=== PATIENT | female | born 1955 | race Caucasian/White ===

== ENCOUNTER 2016-05-05 16:30 | Inpatient (IN) | payer OTHER, MEDICARE ==
[~2016-05-05] VITALS: Ht 175.3 cm; Wt 77.1 kg
[~2016-05-05 16:30] MED LIST: ABILIFY5 M1 PO; ASPIRIN EC81 M1 PO; ATIVAN0.5 M1 PO; ATIVAN0.5 MG PO; ATIVAN1 M1 PO; CLOBETASOL PROP15 G1 TOP; CYMBALTA 60 MG60 MG PO; CYMBALTA60 M1 PO; CYMBALTA60 MG PO; ECOTRIN81 MG PO; FENTANYL1 EAC5 TOP; FOLIC ACID0.4 MG PO; FOLIC ACID1 M1 PO; LOVENOX120 MG/0.1 SC; MELATONIN3 M4 PO; MOBIC15 MG PO; MULTIVITAMIN1 TAB PO; NEURONTIN300 MG PO; NEURONTIN600 M1 PO; NOVAPLUS FE50 MCG/HR TOP; PROAIR HFA0.09 MG/Ac INH; PROTONIX 40MG T40 MG PO; PROTONIX40 M3 PO; REMERON 7.5MG7.5 MG PO; REMERON15 M2 PO; SPIRIVA18 MCG INH; SYMBICORT 80-10.2 GM INH; THIAMINE HCL50 MG PO; TIZANIDINE HCL4 M2 PO; TIZANIDINE4 MG PO; TRAZODONE50 MG PO; TYLENOL TAB 32325 MG PO
--- NOTE | 2016-05-05 17:42 | ED PSYCHIATRIC COMPLAINT ---
History of Present Illness General Chief Complaint: ETOH/Drug Related Complaint Stated Complaint: REQ ETOH DETOX, +SI Source: patient, old records Exam Limitations: intoxication Vital Signs & Intake/Output Vital Signs & Intake/Output Vital Signs Date Time Temp Pulse Resp B/P Pulse O2 O2 Flow FiO2 Ox Delivery Rate 05/06 0006 99.4 81 20 119/72 03/08 2255 97.3 83 17 113/65 03/08 2255 97.3 83 17 113/65 90 Room Air 03/08 2150 98.3 86 18 108/74 03/08 2145 98.3 86 18 108/74 91 Room Air 03/08 2048 97.7 90 18 121/76 97 Room Air /08 2035 97.7 90 18 121/76 03/08 1930 98.3 88 18 135/89 03/08 1930 98.3 88 18 135/89 97 Room Air 03/08 1641 97.0 96 20 107/74 94 Room Air Room Air ED Intake and Output / 0000 08 1200 Intake Total Output Total Balance Patient 148 lb Weight Allergies Coded Allergies: Sulfa (Sulfonamide Antibiotics) (Mild, HIVES 07/03/15) amitriptyline (HIVES 07/03/15) Reconcile Medications Budesonide/Formoterol Fumara (Symbicort 80-4.5 Mcg Inhaler) 80 MCG/4.5 MCG PUF 2 PUFF INH BID COPD (Reported) Clobetasol Propionate 15 GM OINT...G. 1 GARRETT TOP BID INFECTION (Reported) DULOXETINE HCL (Cymbalta) 60 MG ECC 1 CAP PO DAILY MENTAL HEALTH (Reported) Enoxaparin Sodium (Lovenox) 120 MG/0.8 ML SYRINGE 120 MG SC DAILY hx of DVT/PE (Reported) Fentanyl 100 MCG/HOUR PATCH.TD72 1 PAT TOP Q3D chr. pain (Reported) Gabapentin (Neurontin) 300 MG CAP 600 MG PO TID MENTAL HEALTH/NERVE PAIN ( Reported) Melatonin 3 MG CAP 1 CAP PO QPM SLEEP (Reported) Mirtazapine (Remeron) 15 MG TABLET 1 TAB PO QPM SLEEP (Reported) Multivitamin (Multiple Vitamins) 1 TAB TAB 1 TAB PO DAILY Supplement Pantoprazole Sodium (Protonix) 40 MG GRANPKT.DR 1 TAB PO BID ACID REFLUX ( Reported) THIAMINE HCL (Thiamine HCl) 50 MG TAB 1 TAB PO DAILY Supplement Tiotropium [place] (Spiriva) 18 MCG CAP 1 CAP INH DAILY COPD (Reported) Triage Note: PT TO ED FOR ETOH DETOX LAST DETOX AT [facility] A COUPLE MONTHS AGO, BEFORE THAT DETOX HERE 3-4 MONTHS AGO. "I HAVE TO DETOX MEDICAL, BECAUSE I HAVE SEIZURES". PT ADMITS TO +SI THOUGHTS "I JUST DON'T WANT TO BE HERE ANYMORE". LAST DRINK 2 PINTS OF VODKA THROUGHOUT TODAY. Triage Nurses Notes Reviewed? yes HPI: This is a 60-year-old female past medical history including hemachromatosis, bilat DVT, hep B, hep C, thyroid nodule, GERD, COPD, seizures, who is actively intoxicated so unable to corroborate much of her history, who comes in for chief complaint of requesting alcohol detox. She states that her last drink was 30 minutes prior to arriving at [facility]. Patient states that she usually drinks several pints of vodka a day. Shortly, she endorses that she's had several withdrawal seizures in the past. Additionally, patient states she has fentanyl patch for chronic pain. She states last time she wore the patch was yesterday morning. When asked about suicidal ideation, patient said "no, but maybe I'm thinking about it." Denies any homicidal ideation. Unable to obtain last withdrawal seizure. Unable to corroborate much of her past medical history. Unable to corroborate her medication list. (SERGIO HOYT,OLGA) Past History Travel History Traveled to [place] past 21 day No Medical History Any Pertinent Medical History? 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: BREAST NODULES (R BREAST 1 NODULE PRECANCEROUS) Other Medical Hx: bilateral DVT in past History of MRSA: No History of VRE: No History of CDIFF: No Pneumonia Vaccine: 06/28/10 Surgical History Surgical History: IVC filter left foot/toe surgery 10/2014 HYSTERECTOMY LUMPECTOMY TO BOTH BREAST Psychosocial History Who do you live with Patient/Self Services at Home None What is your primary language Armenian Tobacco Use: Current Daily Use Daily Tobacco Use Amount/Type: => 5 Cigarettes daily ETOH Use: alcoholic Illicit Drug Use: denies illicit drug use Family History Family History, If Any: Relation not specified for: *No pertinent family history Hx Contributory? No (OLGA HILL MD) Review of Systems Review of Systems Constitutional: Reports: no symptoms. (OLGA HILL MD) Physical Exam Physical Exam General Appearance: awake, intoxicated Head: atraumatic Ears, Nose, Throat: normal ENT inspection Neck: normal inspection Respiratory: wheezes present Cardiovascular: regular rate/rhythm, 3/6 systolic ejection murmur Gastrointestinal: soft, non-tender Neurological/Psychiatric: awake, agitated, intoxicated SAD PERSONS Done? unobtained due to conditi (SERGIO HOYT,OLGA) Progress Differential Diagnosis: drug intoxication, drug withdrawal Plan of Care: Orders Procedure Date/time Status Nothing by Mouth 05/06 B Active Saline Lock 05/07 35 Active Misc Message 05/07 35 Active ED Holding Orders 05/07 35 Active Admit to inpatient 05/07 35 Active Vital Signs 05/07 35 Active Code Status 05/07 35 Active Continuous Observation Monitor 05/05 1916 Complete CIWA 05/05 1720 Active URINE DRUGS OF ABUSE 05/05 1720 Complete MAGNESIUM 05/05 1720 Complete ETHANOL 05/05 1720 Complete COMPREHENSIVE METABOLIC PANEL 05/05 1720 Complete CBC WITHOUT DIFFERENTIAL 05/05 172 Complete Laboratory Tests 05/05/16 1930: Urine Opiates Screen < 100.00, Methadone Screen 89, Barbiturate Screen < 60, Ur Phencyclidine Scrn < 6.00, Amphetamines Screen < 100, U Benzodiazepines Scrn 171 , Urine Cocaine Screen < 50, Urine Cannabis Screen 78.70 H 05/05/16 1841: Anion Gap 12, Estimated GFR > 60, BUN/Creatinine Ratio 14.3, Glucose 105 H, Calcium 9.0, Magnesium 1.5 L, Total Bilirubin 0.3, AST 16, ALT 23, Alkaline Phosphatase 119, Total Protein 6.0 L, Albumin 3.4 L, Globulin 2.6, Albumin/ Globulin Ratio 1.3, CBC w Diff NO MAN DIFF REQ, RBC 4.31, MCV 87.2, MCH 28.5, RDW 18.0 H, MPV 6.9 L, Gran % 53.4, Lymphocytes % 35.7, Monocytes % 7.7, Eosinophils % 2.6, Basophils % 0.6, Absolute Granulocytes 3.5, Absolute Lymphocytes 2.3, Absolute Monocytes 0.5, Absolute Eosinophils 0.2, Absolute Basophils 0, PUBS MCHC 32.7 L, Serum Alcohol 131.0 At this time, patient is actively intoxicated. We will draw baseline labs and start her on a CIWA protocol (OLGA HILL MD) Hand-Off Endorsed To: CHRISTINA MARTIN MD Endorsed Time: 2311 Pending: other (FOLLOW CIWA SCORES) (SANTA ESCAMILLA MD) Departure Departure Condition: Stable Referrals: TETO COPPOLA MD (PCP/Family) Departure Forms: Customer Survey General Discharge Information (OLGA HILL MD) Departure Time of Disposition: 2311 Disposition: STILL A PATIENT Resident Co-Sign Statement Statement: ED Attending supervision documentation- [X] I saw and evaluated the patient. I have also reviewed all the pertinent lab results and diagnostic results. I agree with the findings and the plan of care as documented in the Resident's documentation. [X] I have reviewed the ED Record and agree with the Resident's documentation. [] Additions or exceptions (if any) to the Resident's note and plan are summarized below: [] (SANTA ESCAMILLA MD) Departure Clinical Impression Primary Impression: Alcohol intoxication Secondary Impressions: Alcohol withdrawal syndrome Admission Note Spoke With: JESSICA AMIN MD Documentation of Exam: Documentation of any treatments & extenuating circumstances including Concerns Regarding Discharge (functional status, medication knowledge or non-compliance, living conditions, etc.) that warrant an admission rather than observation: Pt with elevated ciwa scores, history of seizure disorder 3 months ago, meets criteria for inpatient etoh detox. (CHRISTINA MARTIN MD) ED Attending Observation Initial Observation Note: I have seen and personally examined JOE WOODS on 05/05/16 at 2312. I agree with the current emergency department documentation. The disposition (admission or discharge) is uncertain at this time, she needs a period of observation for the following reason(s): The ED Nurse caring for this patient has been personally informed as to what the patient is being observed for. (ANDI HOYT,SANTA)
[2016-05-05 18:52] LABS: ABSOLUTE BASOPHIL COUNT 0 /CUMM (0.0-0.2); ABSOLUTE EOSINOPHIL COUNT 0.2 /CUMM (0.0-0.7); ABSOLUTE GRANULOCYTE CT 3.5 /CUMM (1.4-6.5); ABSOLUTE LYMPH COUNT 2.3 /CUMM (1.2-3.4); ABSOLUTE MONOCYTE COUNT 0.5 /CUMM (0.10-0.60); BASOPHIL % 0.6 % (0.0-2.0); EOSINOPHIL % 2.6 % (0-5); GRANULOCYTE % 53.4 % (42.2-75.2); HEMATOCRIT 37.6 % (37-47); MEAN CORPUSCULAR HGB 28.5 PG (27.0-31.0); MEAN CORPUSCULAR HGB CONC 32.7 G/DL (33.0-37.0); MEAN CORPUSCULAR VOLUME 87.2 FL (81.0-99.0); MEAN PLATELET VOLUME 6.9 FL (7.4-10.4); PLATELET COUNT 200 /CUMM (130-400); RED BLOOD CELL CT 4.31 /CUMM (4.20-5.40); WHITE BLOOD CELL COUNT 6.5 /CUMM (4.8-10.8)
[2016-05-05 19:30] VITALS: BP 135/89
[2016-05-05 20:35] VITALS: BP 121/76
[2016-05-05 21:50] VITALS: BP 108/74
[2016-05-05 22:55] VITALS: BP 113/65
[2016-05-06] VITALS (11 sets, daily range): BP systolic 97–120; BP diastolic 58–72
--- NOTE | 2016-05-06 01:28 | History & Physical ---
DELILAH HOYT,[facility] 05/06/16 0127: General Information and HPI MD Statement: I have seen and personally examined JOE WOODS and documented this H&P. The patient is a 60 year old F who presented with a patient stated chief complaint of needing alcohol detox. Source of Information: patient Exam Limitations: no limitations History of Present Illness: This is a 59-year-old lady with a past medical history of alcohol abuse with multiple admissions for detox, alcohol withdrawal seizures, COPD, hep B and hep C, depression, hemoglobin, ptosis, fibromyalgia, history of bilateral DVT and PE status post IVC placement, presents to [facility] ED requesting alcohol detox. Of note, patient was admitted at [facility] December 2015 for alcohol detox but left AMA. Patient states that she was sober for a month for she resumed drinking. However, she is reported to have been hospitalized at [facility] in January for alcohol detox including a seizure withdrawal episode. She reports drinking about a quart of vodka daily with last drink being at 1 PM on the day of this admission (05/05). Patient is reporting complaints of nausea but no vomiting, and diffuse diaphoresis. She also complains of a headache and states that it is probably from stopping her fentanyl (last patch removed yesterday). She denies any suicidal or homicidal ideation. When asked what her plans were for this detox, patient states that she needs help and she will not leave AMA this time. Review of system is negative for vision changes, dizziness, shortness of breath, chest pain, palpitation, abdominal pain, fever, chills or dysuria. Allergies/Medications Allergies: Coded Allergies: Sulfa (Sulfonamide Antibiotics) (Mild, HIVES 07/03/15) amitriptyline (HIVES 07/03/15) Home Med list Budesonide/Formoterol Fumara (Symbicort 80-4.5 Mcg Inhaler) 80 MCG/4.5 MCG PUF 2 PUFF INH BID COPD (Reported) Clobetasol Propionate 15 GM OINT...G. 1 GARRETT TOP BID INFECTION (Reported) DULOXETINE HCL (Cymbalta) 60 MG ECC 1 CAP PO DAILY MENTAL HEALTH (Reported) Enoxaparin Sodium (Lovenox) 120 MG/0.8 ML SYRINGE 120 MG SC DAILY hx of DVT/PE (Reported) Fentanyl 100 MCG/HOUR PATCH.TD72 1 PAT TOP Q3D chr. pain (Reported) Gabapentin (Neurontin) 300 MG CAP 600 MG PO TID MENTAL HEALTH/NERVE PAIN ( Reported) Melatonin 3 MG CAP 1 CAP PO QPM SLEEP (Reported) Mirtazapine (Remeron) 15 MG TABLET 1 TAB PO QPM SLEEP (Reported) Multivitamin (Multiple Vitamins) 1 TAB TAB 1 TAB PO DAILY Supplement Pantoprazole Sodium (Protonix) 40 MG GRANPKT.DR 1 TAB PO BID ACID REFLUX ( Reported) THIAMINE HCL (Thiamine HCl) 50 MG TAB 1 TAB PO DAILY Supplement Tiotropium [place] (Spiriva) 18 MCG CAP 1 CAP INH DAILY COPD (Reported) Past History Travel History Traveled to [place] past 21 day No Medical History Neurological: FIBROMYALGIA seizure in the setting of alcohol withdrawal EENT: NONE Cardiovascular: NONE Respiratory: COPD, emphysema Gastrointestinal: GERD, POLYPS IN COLON Hepatic: hepatitis B, hepatitis C Renal: 2 CYSTS IN L KIDNEY Musculoskeletal: osteoarthritis, psoariatic arthritis, OSTEOPENIA Psychiatric: alcohol dependence, anxiety, depression, dysthymic disorder Endocrine: THYROID NODULE Blood Disorders: HEMOCHROMATOSIS Cancer(s): NONE 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 self Services at Home: None Primary Language: Uzbek ETOH Use: alcoholic Illicit Drug Use: denies illicit drug use Functional Ability ADLs Independent: dressing, eating, toileting, bathing. Ambulation: cane Review of Systems Review of Systems Constitutional: Reports: see HPI. EENTM: Denies: double vision, visual changes, eye pain. Cardiovascular: Denies: orthopena, palpitations, peripheral edema. Respiratory: Denies: cough, hemoptysis, short of breath. GI: Reports: nausea. Denies: abdominal pain, bloating, constipation, diarrhea, melena, bloody stool. Genitourinary: Denies: hematuria, nocturia, pain. Musculoskeletal: Denies: joint pain, muscle pain, muscle stiffness. Skin: Denies: dryness, jaundice. Neurological/Psychological: Denies: confusion, depressed. Hematologic/Endocrine: Reports: no symptoms. Immunologic/Allergic: Reports: no symptoms. Exam & Diagnostic Data Last 24 Hrs of Vital Signs/I&O Vital Signs Date Time Temp Pulse Resp B/P Pulse O2 O2 Flow FiO2 Ox Delivery Rate 05/06 0214 97.9 77 18 97/58 93 Room Air 05/06 0212 97.9 77 18 97/58 05/06 0006 99.4 81 20 119/72 05/05 2255 97.3 83 17 113/65 /08 2255 97.3 83 17 113/65 90 Room Air 05/05 2150 98.3 86 18 108/74 /08 2145 98.3 86 18 108/74 91 Room Air 05/05 2048 97.7 90 18 121/76 97 Room Air 05/05 2035 97.7 90 18 121/76 / 1930 98.3 88 18 135/89 /08 1930 98.3 88 18 135/89 97 Room Air 05/05 1641 97.0 96 20 107/74 94 Room Air Room Air Intake & Output 05/06 0800 05/06 0000 05/05 1600 Intake Total Output Total Balance Patient 77.111 kg 67.132 kg Weight Physical Exam General Appearance Alert, Oriented X3, Cooperative Skin No Significant Lesion HEENT Atraumatic, Mucous Membr. moist/pink Neck Supple, No JVD Lymphatic Cervical nl Cardiovascular Regular Rate, Normal S1, Normal S2 Lungs Clear to Auscultation, Normal Air Movement Abdomen Normal Bowel Sounds, Soft, No Tenderness Neurological Normal Speech, Normal Tone, Sensation Intact Extremities No Clubbing, No Cyanosis, No Edema, Normal Pulses Vascular Normal Pulses Assessment/Plan Assessment: This is a 60-year-old lady with a past medical history of alcohol abuse including admissions for detox and withdrawal seizures is presenting for alcohol detox. Patient reports drinking a quart of vodka daily. At presentation at the ED, she was found to be very intoxicated and was not initially giving any coherent history, last reported drink was at 1 PM on 05/06. Patient's vitals at the ED was unremarkable. Hypomagnesemia is noted on her labs, otherwise unremarkable. Patient will be admitted to general medicine for management of alcohol detox. Assessment and plan #Alcohol detox Last reported drink 1 PM (05/05) with you tox showing a level of 131. Close monitoring for withdrawal effects needed as patient has a history of withdrawal seizures. Plan * Admit to general medicine * Lorazepam 2 mg every 6 hours * CIWA protocol with lorazepam when necessary dosing * Banana bag (1 L) * Thiamine, folate, multivitamin * Will obtain psych and social consult #History of opiate dependence Patient endorses a history of fentanyl use 100 g. Last patch was removed yesterday. She is endorsing complaints of headaches and is worried about withdrawal effects. Plan * Oxycodone is on on board as needed for now * Will obtain psych consult tomorrow for reccomendation for tapering/methadone os suboxone initiation #Hypomagnesemia Most likely secondary to poor nutrition from daily alcohol abuse. Plan * Banana bag will provide adequate magnesium replacement for now * Will trend mag and replenish as necessary #History of bilateral DVT and PE Patient does have a IVC filter placed and is supposed to be on lifetime anticoagulation. Plan * Lovenox 1.5 mg/kg every 24 hours (~120 mg) * Mechanical Alps #History of depression * Continue duloxetine #History of GERD * Continue omeprazole Number sign history of COPD * Continue Spiriva and Symbicort * TRC nebs #History of muscle spasm * Conitinue Tinazidine As Ranked By This Provider Problem List: 1. ALCOHOL WITHDRAWAL 2. Hypomagnesemia Core Measures/Miscellaneous Acute Coronary Syndrome ACS Diagnosis: No Cerebrovascular Accident CVA/TIA Diagnosis: No Congestive Heart Failure CHF Diagnosis: No Venous Thromboembolism VTE Risk Factors: Age > 40 No [facility] VTE prophylaxis d/t: No contraindications No VTE Pharm Prophylaxis d/t: No contraindications VTE Diagnosis: No VTE Type: NONE VTE Confirmed by (Test): NONE Severe Sepsis Severe Sepsis Present: No Septic Shock Septic Shock Present: No Miscellaneous Documentation Attending Case Discussed With: JESSICA AMIN MD Primary Care Physician: TETO COPPOLA MD Patient sees these Specialists none Level of Patient Care: General Medicine JAMISON GIANG 05/06/16 0135: Resident Review Statement Resident Statement: examined this patient, discussed with internal sales, agreed with internal sales, discussed with family Other Findings: 59-year-old female with past medical history of alcohol dependence with multiple inpatient admissions and alcohol-related seizure history, History of bilateral DVT and PE status post IVC filter, history of hepatitis B and C, depression, COPD, hemachromatosis, fibromyalgia,History of bilateral DVT and PE status post IVC filterpresented to the ED for the evaluation of alcohol intoxication requesting detox. Last drink was 30 minutes prior to arrival. She reported drinking several pints of vodka a day.She was recently admitted to [facility] due to alcohol intoxication and left AGAINST MEDICAL ADVICE at that time. She was admitted to [facility] for the similar complaints and had a witnessed seizure at that time.patient was recently seen by her toy consultant Ken Lora and has been off fentanyl and oxycodone now. In the ED patient reported nausea and vomiting without any abdominal discomfort.Reported headacheswithout any dizziness or lightheadedness. Vitals on admission temperature 97.3, pulse 83, respiratory rate 17, blood pressure 113/65 on room air. General Appearance: Alert and oriented 3 , not in acute distress Skin: Grossly normal HEENT: PEERLA Neck: Supple, No JVD Cardiovascular: Regular Rate, Normal S1, Normal S2, No Murmurs Lungs: Chest clear to auscultation bilaterally on exam Abdomen: Normal Bowel Sounds, without any tenderness Neurological: No exam intact Extremities: No evidence of any lower extremity swelling/injuries. Bilateral tremors and tremors on exam. Vascular: Normal Pulses. Pertinent labs on admission: Normal CBC, hypomagnesemia : 1.5, urine toxicology is positive for cannabis Assessment and plan: 1 Alcohol intoxication/withdrawal-requesting for detox: * Admit the patient GenMed floor * Start the patient on scheduled. Ativan 2 mg every 6 hours * Ativan as per [facility] protocol * Seizure and fall precautions. * Repeat and replete electrolytes * Will give one banana bag continue thiamine folate and multivitamins in the morning * Social consult and psych consult in the morning. 2. Hypomagnesemia: * Give 1 g of IV Mg sulfate repeat levels in the morning. 3.History of bilateral DVT and PE status post IVC filter * In December patient was on 120 subcutaneous Lovenox, she has lost weight since December, corrected subcutaneous Lovenox dose : 100 subcutaneous daily(dose confirmed with the pharmacy) 4. History of spasticity * Continue tizanidine 4 mg 3 times a day. 5. History of depression: * Continue home dose Cymbalta 6. History of GERD/ Gastritis * Continue omeprazole. 7. History of COPD: * Continue Symbicort and Spiriva, * TRC nebs as needed. 8 Chronic opiod dependence(off oxycodon and fentaly patch , due to heavy alcohol abuse )-last filled prescription for oxycodone on 04/22/16 for 7 days and 7-day supply of Fentanyl was prescribed by her developer programmer analyst on 03/02/16 * Continue oxycodon as needed for sever pain to prevent withdrawls . * obtain [facility] consult regarding opiod detox Moderate to severe pain controlled with oxycodon and ibuprofen. DVT prophylaxis with Lovenox Patient is full code ELOISA HOYT, [facility] 05/06/16 0200: Attending MD Review Statement Attending Statement Attending MD Statement: examined this patient, discuss w/resident/PA/ASSET MANAGER, agreed w/resident/PA/ASSET MANAGER Attending Assessment/Plan: 60 yo F smoker, with h/o alcohol dependence with multiple failed attempts at detox, withdrawal seizures, Hep B and C, hemochromatosis, depression, HTN, COPD, psoriatic arthritis, chronic opiate dependence, fibromyalgia, b/l DVT s/p IVC on Lovenox, is here requesting alcohol detox. C/o nausea and diaphoresis. Denies SI or HI. Last admitted to [facility] (Dec 2015) for detox but left AMA. She reports being admitted to [facility] for detox in Jan 2016 and thinks she might have had a seizure then. Drinks 1 quart of vodka daily. Her developer programmer analyst Stephany Palomino took her off the fentanyl and oxycodone as she was consuming alcohol at the same time. Vitals stable except for borderline hypotension. Exam: tremulous, flat affect, dry mucous membranes, otherwise benign. Labs: Mag 1.5, Utox positive for cocaine. S. Alcohol 131. 1. Alcohol detox. GM admit, CIWA, ativan 2 mg Q6, IV ativan PRN, banana bag, seizure/fall precautions, Social work and Psych consult. Replete magnesium. 2. Alcoholic gastritis. Continue PPI. 3. H/o DVT s/p IVC filter. Continue lovenox dose reduced based on her body weight. 4. Fibromyalgia, chronic opiate dependence. Patient was last prescribed oxycodone on 04/02/16 for 7 days and more recently her developer programmer analyst gave her only a 7-day supply of Fentanyl on 03/02/16, as patient was drinking too much alcohol while on opiates. Patient is now concerned that she may go into opiate withdrawal. We will keep her on oxycodone PRN, and have Psych help with opiate detox. 5. Smoking cessation counseling. Nicotine patch. DVT ppx Lovenox. Full code.
--- NOTE | 2016-05-06 02:41 | Admission Certification ---
Admission Certification Certification Statement - As attending physician, I certify that at the time of - admission, based on clinical presentation, severity of - symptoms, need for further diagnostic testing and - therapeutic interventions, and risk of adverse outcomes - without in-hospital treatment, in my clinical assessment, - this patient requires an acute hospital stay for a minimum - of two nights or longer. I have also considered psychsocial - factors such as support system, advanced age, financial - issues, cognitive issues, and failed out-patient treatments, - past re-admission history, safety of patient, and lack of - compliance as applicable. Specific rationale supporting this admission is: Alcohol detox.
[2016-05-06 05:50] LABS: ABSOLUTE BASOPHIL COUNT 0 /CUMM (0.0-0.2); ABSOLUTE EOSINOPHIL COUNT 0.2 /CUMM (0.0-0.7); ABSOLUTE GRANULOCYTE CT 3.7 /CUMM (1.4-6.5); ABSOLUTE LYMPH COUNT 1.8 /CUMM (1.2-3.4); ABSOLUTE MONOCYTE COUNT 0.5 /CUMM (0.10-0.60); BASOPHIL % 0.3 % (0.0-2.0); EOSINOPHIL % 2.4 % (0-5); HEMATOCRIT 36.4 % (37-47); MEAN CORPUSCULAR HGB 28.8 PG (27.0-31.0); MEAN CORPUSCULAR HGB CONC 33.2 G/DL (33.0-37.0); MEAN CORPUSCULAR VOLUME 86.8 FL (81.0-99.0); MEAN PLATELET VOLUME 7.1 FL (7.4-10.4); PLATELET COUNT 172 /CUMM (130-400); RBC DISTRIBUTION WIDTH 17.7 % (11.5-14.5); RED BLOOD CELL CT 4.19 /CUMM (4.20-5.40); WHITE BLOOD CELL COUNT 6.2 /CUMM (4.8-10.8)
--- NOTE | 2016-05-06 06:46 | PN- Housestaff ---
DONITA HOYT,SEAN 05/06/16 0646: Subjective Follow-up For: Alcohol and opiate detoxification Subjective: I saw and examined the patient today morning She is lying in the bed, sitter at bedside as she is suicidal. Alert and oriented X 3. minimally communicative. Review of Systems Constitutional: Reports: see HPI. Comments: ROS negative except the above Objective Last 24 Hrs of Vital Signs/I&O Vital Signs Date Time Temp Pulse Resp B/P Pulse O2 O2 Flow FiO2 Ox Delivery Rate 05/06 0600 86 20 108/72 05/06 0553 97.9 67 20 102/62 94 Nasal 2.0L Cannula 05/06 0415 104/64 05/06 0400 97.9 77 18 102/62 05/06 0347 97.3 72 18 91/53 92 Nasal 2.0L Cannula 05/06 0346 95 Nasal 2.0L Cannula 05/06 0214 97.9 77 18 97/58 93 Room Air 05/06 0212 97.9 77 18 97/58 05/06 0006 99.4 81 20 119/72 /08 2255 97.3 83 17 113/65 03/08 2255 97.3 83 17 113/65 90 Room Air 03/08 2150 98.3 86 18 108/74 03/08 2145 98.3 86 18 108/74 91 Room Air /08 2048 97.7 90 18 121/76 97 Room Air 03/08 2035 97.7 90 18 121/76 03/08 1930 98.3 88 18 135/89 03/08 1930 98.3 88 18 135/89 97 Room Air / 1641 97.0 96 20 107/74 94 Room Air Room Air Intake & Output 05/06 0800 05/06 0000 08 1600 Intake Total 220 Output Total 300 Balance -80 Intake, IV 100 Intake, Oral 120 Output, Urine 300 Patient 77.111 kg 67.132 kg Weight Physical Exam General Appearance: Alert, Oriented X3, Cooperative, No Acute Distress Skin: No Rashes, No Breakdown HEENT: Atraumatic, PERRLA Neck: Supple, No JVD Cardiovascular: Normal S1, Normal S2, No Murmurs Lungs: Normal Air Movement Abdomen: Normal Bowel Sounds, Soft, No Tenderness Neurological: Normal Tone Extremities: No Clubbing, No Cyanosis Current Medications: Current Medications Sig/Sharon Start time Last Medication Dose Route Stop Time Status Admin Acetaminophen 1,000 MG Q6P PRN 05/06 0145 AC N/A 1 UNIT IV Acetaminophen 650 MG Q6 PRN 05/06 0100 AC PO Acetaminophen 1,000 MG Q6P PRN 05/06 0100 DC IV Cyanocobalamin/ 1 BAG DAILY 05/06 1000 AC Thiamine/Pyridoxine IV Dextrose/Water 1,000 ML Duloxetine HCl 60 MG DAILY 05/06 1000 AC PO Enoxaparin Sodium 40 MG DAILY 05/06 1000 CAN SC Enoxaparin Sodium 100 MG DAILY 05/06 1000 AC SC Folic Acid 1 MG DAILY 05/06 1000 AC PO Ibuprofen 600 MG Q6P PRN 05/06 0100 DC PO Ketorolac 30 MG Q6P PRN 05/06 0130 DC Tromethamine IV Lorazepam 2 MG Q6 05/06 0600 AC 05/06 PO 0534 Lorazepam 0 .STK-MED ONE 05/07 535 DC PO Lorazepam 0 .STK-MED ONE 05/06 0233 DC .ROUTE Lorazepam 1 MG Q1P PRN 05/06 0130 AC 05/06 IV 0234 Lorazepam 2 MG ONCE ONE 05/06 0015 DC 05/06 PO 05/06 0016 0019 Lorazepam 0 .STK-MED ONE 05/06 0014 DC PO Magnesium Oxide 0 .STK-MED ONE 05/06 2003 DC PO Magnesium Oxide 400 MG ONE ONE 05/05 193 DC 05/05 PO 05/05 Magnesium Sulfate 0 .STK-MED ONE 05/06 0150 DC .ROUTE Magnesium Sulfate 1 GM ONCE ONE 05/06 0130 DC 05/06 Dextrose/Water 100 ML IV 05/06 528 0207 Melatonin 3 MG AT BEDTIME 05/06 2199 AC PO Mirtazapine 15 MG QPM 05/06 2200 AC PO Multivitamins 1 TAB DAILY 05/06 1000 AC PO Omeprazole 40 MG DAILY AC 05/06 0700 AC 05/06 PO 0534 Omeprazole 0 .STK-MED ONE 05/06 0536 DC PO Oxycodone HCl 0 .STK-MED ONE 05/06 0552 DC PO Oxycodone HCl 10 MG Q6P PRN 05/06 0315 AC 05/06 PO 0548 Thiamine HCl 100 MG DAILY 05/06 1000 AC PO Tiotropium [place] 1 PUF DAILY 05/06 1000 AC INH Tizanidine HCl 4 MG TID 05/06 1000 AC PO Last 24 Hrs of Lab/Wm Results Last 24 Hrs of Labs/Mics: Laboratory Tests 05/06/16 0530: Anion Gap 3 L, Estimated GFR > 60, BUN/Creatinine Ratio 20.0, CBC w Diff NO MAN DIFF REQ, RBC 4.19 L, MCV 86.8, MCH 28.8, RDW 17.7 H, MPV 7.1 L, Gran % 60.0, Lymphocytes % 29.1, Monocytes % 8.2, Eosinophils % 2.4, Basophils % 0.3, Absolute Granulocytes 3.7, Absolute Lymphocytes 1.8, Absolute Monocytes 0.5, Absolute Eosinophils 0.2, Absolute Basophils 0, PUBS MCHC 33.2 05/05/16 1930: Urine Opiates Screen < 100.00, Methadone Screen 89, Barbiturate Screen < 60, Ur Phencyclidine Scrn < 6.00, Amphetamines Screen < 100, U Benzodiazepines Scrn 171 , Urine Cocaine Screen < 50, Urine Cannabis Screen 78.70 H 05/05/16 1841: Anion Gap 12, Estimated GFR > 60, BUN/Creatinine Ratio 14.3, Glucose 105 H, Calcium 9.0, Magnesium 1.5 L, Total Bilirubin 0.3, AST 16, ALT 23, Alkaline Phosphatase 119, Total Protein 6.0 L, Albumin 3.4 L, Globulin 2.6, Albumin/ Globulin Ratio 1.3, CBC w Diff NO MAN DIFF REQ, RBC 4.31, MCV 87.2, MCH 28.5, RDW 18.0 H, MPV 6.9 L, Gran % 53.4, Lymphocytes % 35.7, Monocytes % 7.7, Eosinophils % 2.6, Basophils % 0.6, Absolute Granulocytes 3.5, Absolute Lymphocytes 2.3, Absolute Monocytes 0.5, Absolute Eosinophils 0.2, Absolute Basophils 0, PUBS MCHC 32.7 L, Serum Alcohol 131.0 Assessment/Plan Assessment: Patient is a 59-year-old female with past medical history significant for multiple admissions for alcohol detoxification, COPD, hepatitis B and C, depression, fibromyalgia (on opiate therapy), 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 She recently hospitalized in [place] for alcohol withdrawal related seizure episode. She drinks vodka, along with opiate intake about which her trauma registrar Stephany Palomino is concerned and stopped her opiates, fentanyl patch. Admitted to general medicine floor Plan Alcohol detoxification * [facility] protocol with bananna bag, folic acid and thiamine * Suicidal ideation present - so 1:[address] * Psych consulted - Suggested to continue sitter, if doesnt improve will consider inpatient psychiatry Alcohol related gastritis * Omeprazole 40mg PO daily History of DVT & PE (s/p IVC filter placement) * On lovenox 1.5mg/kg/day dosing (100mg) * we will continue according to her current weight. Fibromyalgia * Chronically on opiates, last prescribed on 04/02/16 * Started on oxycodone 10mg Q6hr PRN for pain * Tizanidine 4mg TID for spasms Depression * Continue mirtazepine 15mg dialy and discontinue cymbalta in the setting of hyponatremia COPD * TRC/Nebs * desaturated in the ER, currently on 2L of oxygen * CXR shows left sided blunting. DVT Prophylaxis * SC lovenox Code status * Full code Problem List: 1. ALCOHOL WITHDRAWAL 2. Alcohol abuse 3. COPD 4. History of chronic obstructive pulmonary disease 5. Hypomagnesemia 6. Chronic pain 7. Suicidal ideations Pain Ratin Pain Location: n/a Pain Goal: Pain 4 or less Pain Plan: oxycodone 5mg Q6 Tomorrow's Labs & Rationales: BEP to monitor electrolytes in alcohol withdrawl patient SVETLANA DEAN MD 05/06/16 1450: Attending MD Review Statement Attending Statement Attending MD Statement: examined this patient, discuss w/resident/PA/ADMINISTRATIVE OFFICE CLERK, agreed w/resident/PA/ADMINISTRATIVE OFFICE CLERK, reviewed EMR data (avail), discussed with nursing, discussed with case mgmt, reviewed images, amended to note Attending Assessment/Plan: Patient seen and examined, she was somewhat drowsy but arousable. She denies any complaints. Patient is admitted for alcohol detox and also admits to using marijuana. Vital Signs Date Time Temp Pulse Resp B/P Pulse O2 O2 Flow FiO2 Ox Delivery Rate 05/06 808 97.9 67 20 102/62 94 Nasal 2.0L Cannula 05/07 799 Nasal 2.0L Cannula 05/06 0600 86 20 108/72 05/06 0553 97.9 67 20 102/62 94 Nasal 2.0L Cannula 05/06 0415 104/64 / 0400 97.9 77 18 102/62 / 0347 97.3 72 18 91/53 92 Nasal 2.0L Cannula 05/06 0346 95 Nasal 2.0L Cannula 05/06 0214 97.9 77 18 97/58 93 Room Air 05/06 0212 97.9 77 18 97/58 / 0006 99.4 81 20 119/72 03/08 2255 97.3 83 17 113/65 03/08 2255 97.3 83 17 113/65 90 Room Air 03/08 2150 98.3 86 18 108/74 03/08 2145 98.3 86 18 108/74 91 Room Air /08 2048 97.7 90 18 121/76 97 Room Air 03/08 2035 97.7 90 18 121/76 03/08 1930 98.3 88 18 135/89 03/08 1930 98.3 88 18 135/89 97 Room Air /08 1641 97.0 96 20 107/74 94 Room Air Room Air on exam; aox3, nad. cv; s1,s2, rrr resp; clear abd; soft, nt, bs+ ext; no edema. Laboratory Tests 05/06 05/05 0530 1930 Chemistry Sodium (137 - 145 mmol/L) 136 L Potassium (3.5 - 5.1 mmol/L) 4.4 Chloride (98 - 107 mmol/L) 102 Carbon Dioxide (22 - 30 mmol/L) 31 H Anion Gap (5 - 16) 3 L BUN (7 - 17 mg/dL) 12 Creatinine (0.5 - 1.0 mg/dL) 0.6 Estimated GFR (>60 ml/min) > 60 BUN/Creatinine Ratio (7 - 25 %) 20.0 Hematology CBC w Diff NO MAN DIFF REQ WBC (4.8 - 10.8 /CUMM) 6.2 RBC (4.20 - 5.40 /CUMM) 4.19 L Hgb (12.0 - 16.0 G/DL) 12.1 Hct (37 - 47 %) 36.4 L MCV (81.0 - 99.0 FL) 86.8 MCH (27.0 - 31.0 PG) 28.8 RDW (11.5 - 14.5 %) 17.7 H Plt Count (130 - 400 /CUMM) 172 MPV (7.4 - 10.4 FL) 7.1 L Gran % (42.2 - 75.2 %) 60.0 Lymphocytes % (20.5 - 51.1 %) 29.1 Monocytes % (1.7 - 9.3 %) 8.2 Eosinophils % (0 - 5 %) 2.4 Basophils % (0.0 - 2.0 %) 0.3 Absolute Granulocytes (1.4 - 6.5 /CUMM) 3.7 Absolute Lymphocytes (1.2 - 3.4 /CUMM) 1.8 Absolute Monocytes (0.10 - 0.60 /CUMM) 0.5 Absolute Eosinophils (0.0 - 0.7 /CUMM) 0.2 Absolute Basophils (0.0 - 0.2 /CUMM) 0 PUBS MCHC (33.0 - 37.0 G/DL) 33.2 Toxicology Urine Opiates Screen (>2000 NG/ML) < 100.00 Methadone Screen (>300 NG/ML) 89 Barbiturate Screen (>200 NG/ML) < 60 Ur Phencyclidine Scrn (>25 NG/ML) < 6.00 Amphetamines Screen (>1000 NG/ML) < 100 U Benzodiazepines Scrn (>200 NG/ML) 171 Urine Cocaine Screen (>300 NG/ML) < 50 Urine Cannabis Screen (>50 NG/ML) 78.70 H 03/08 1841 Chemistry Sodium (137 - 145 mmol/L) 143 Potassium (3.5 - 5.1 mmol/L) 3.6 Chloride (98 - 107 mmol/L) 101 Carbon Dioxide (22 - 30 mmol/L) 29 Anion Gap (5 - 16) 12 BUN (7 - 17 mg/dL) 10 Creatinine (0.5 - 1.0 mg/dL) 0.7 Estimated GFR (>60 ml/min) > 60 BUN/Creatinine Ratio (7 - 25 %) 14.3 Glucose (65 - 99 mg/dL) 105 H Calcium (8.4 - 10.2 mg/dL) 9.0 Magnesium (1.6 - 2.3 mg/dL) 1.5 L Total Bilirubin (0.2 - 1.3 mg/dL) 0.3 AST (14 - 36 U/L) 16 ALT (9 - 52 U/L) 23 Alkaline Phosphatase (<127 U/L) 119 Total Protein (6.3 - 8.2 g/dL) 6.0 L Albumin (3.5 - 5.0 g/dL) 3.4 L Globulin (1.9 - 4.2 gm/dL) 2.6 Albumin/Globulin Ratio (1.1 - 2.2 %) 1.3 Hematology CBC w Diff NO MAN DIFF REQ WBC (4.8 - 10.8 /CUMM) 6.5 RBC (4.20 - 5.40 /CUMM) 4.31 Hgb (12.0 - 16.0 G/DL) 12.3 Hct (37 - 47 %) 37.6 MCV (81.0 - 99.0 FL) 87.2 MCH (27.0 - 31.0 PG) 28.5 RDW (11.5 - 14.5 %) 18.0 H Plt Count (130 - 400 /CUMM) 200 MPV (7.4 - 10.4 FL) 6.9 L Gran % (42.2 - 75.2 %) 53.4 Lymphocytes % (20.5 - 51.1 %) 35.7 Monocytes % (1.7 - 9.3 %) 7.7 Eosinophils % (0 - 5 %) 2.6 Basophils % (0.0 - 2.0 %) 0.6 Absolute Granulocytes (1.4 - 6.5 /CUMM) 3.5 Absolute Lymphocytes (1.2 - 3.4 /CUMM) 2.3 Absolute Monocytes (0.10 - 0.60 /CUMM) 0.5 Absolute Eosinophils (0.0 - 0.7 /CUMM) 0.2 Absolute Basophils (0.0 - 0.2 /CUMM) 0 PUBS MCHC (33.0 - 37.0 G/DL) 32.7 L Toxicology Serum Alcohol (<10 MG/DL) 131.0 A/P; 60 y/o F with pmh sig for alcohol abuse with multiple admissions for detox, alcohol withdrawal seizures, COPD, hep B and hep C, depression, hemoglobin, ptosis, fibromyalgia, history of bilateral DVT and PE status post IVC placement admitted with acute alcohol intoxication needing detox. Continue scheduled and when necessary Ativan as well as CIWA protocol. Continue multivitamin, folate and thiamine. Please DC IV Tylenol. Social work and psych should see the patient as patient had expressed suicidal ideation reportedly. DVt px; lovenox.
--- NOTE | 2016-05-06 07:25 | RADIOLOGY REPORT ---
EXAMINATION: XR PORTABLE CHEST CLINICAL INFORMATION: Pneumonia. Increased oxygen demand COMPARISON: 02/02/2015 and 05/30/2010 TECHNIQUE: Portable AP view of the chest was obtained. FINDINGS: Normal pulmonary vascularity.. There is subtle blunting of the left costophrenic angle and linear left base atelectasis, new from prior study. No dense focal consolidation or mass. No right pleural effusion. No pneumothorax. Normal heart size. Tortuous aorta. IMPRESSION: Blunting of the left costophrenic angle and left base atelectasis. A tiny left pleural effusion may be present.
--- NOTE | 2016-05-06 18:23 | Cons- Psychiatry ---
Psychiatric Consult Date of Consult: 05/06/16 Reason for Consult: "SI, ETOH withdrawl" History of Present Illness: Identifying Info: 55-year-old female who resides in [place]. CC: "I'm sick" HPI: Patient presents to [facility] emergency department on 05/05/2016 written request for alcohol detox and suicidal ideation. She was admitted due to history of seizures. She reports that she has recently been drinking 2 pints of vodka a day and was most recently detoxed at [facility] a few months ago. It is unclear when she most recently relapsed on alcohol. The patient has multiple previous hospitalizations for alcohol detox at [facility] and other [facility]. PMH: Please see the H&P for a complete listing Psoriatic arthritis, fibromyalgia, COPE, withdrawal seizures, hypercholesterolism and history of hepatitis C. 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 However the patient 's recent med claim history includes prescription for disulfiram 250mg, mirtazapine 15 mg, and cymbalta 60mg picked up on 04/30/2016 with no prescriber listed. -Inpatient CPS 2010 Family Psych History: Unobtained Substance History EtOH Family Substance History: Unobtained Social: with adult children. Unemployed. Abuse/Trauma: Unobtained Current Home Psychotropic Medications: Disulfiram 250mg Mirtazapine 15 mg Cymbalta 60mg Current Hospital Psychotropic Medications: Med Duloxetine HCl 60 MG PO DAILY 05/06/16 1000 Lorazepam 1 MG IV Q1P PRN 05/06/16 0130 Lorazepam 2 MG PO Q6 05/06/16 0600 Melatonin 3 MG PO AT BEDTIME 05/06/16 2200 Mirtazapine 15 MG PO QPM 05/06/16 2200 Allergies: Coded Allergies: Sulfa (Sulfonamide Antibiotics) (Mild, HIVES 07/03/15) amitriptyline (HIVES 07/03/15) Current Medications: Med Acetaminophen 650 MG PO Q6 PRN 05/06/16 0100 Albuterol Sulfate 2 PUF INH Q4P PRN 05/06/16 1730 Cyanocobalamin/Thiamine/Pyridoxine 1 BAG IV DAILY 05/06/16 1000 Dextrose/Water 1,000 ML Duloxetine HCl 60 MG PO DAILY 05/06/16 1000 Enoxaparin Sodium 100 MG SC DAILY 05/06/16 1000 Folic Acid 1 MG PO DAILY 05/06/16 1000 Lorazepam 1 MG IV Q1P PRN 05/06/16 0130 Lorazepam 2 MG PO Q6 05/06/16 0600 Melatonin 3 MG PO AT BEDTIME 05/06/16 2200 Mirtazapine 15 MG PO QPM 05/06/16 2200 Multivitamins 1 TAB PO DAILY 05/06/16 1000 Omeprazole 40 MG PO DAILY AC 05/06/16 0700 Oxycodone HCl 10 MG PO Q6P PRN 05/06/16 0315 Thiamine HCl 100 MG PO DAILY 05/06/16 1000 Tiotropium [place] 1 PUF INH DAILY 05/06/16 1000 Tizanidine HCl 4 MG PO TID 05/06/16 1000 Past History Past Medical History Neurological: FIBROMYALGIA seizure in the setting of alcohol withdrawal EENT: NONE Cardiovascular: NONE Respiratory: COPD, emphysema Gastrointestinal: GERD, POLYPS IN COLON Hepatic: hepatitis B, hepatitis C Renal: 2 CYSTS IN L KIDNEY Musculoskeletal: osteoarthritis, psoariatic arthritis, OSTEOPENIA Psychiatric: alcohol dependence, anxiety, depression, dysthymic disorder Endocrine: THYROID NODULE Blood Disorders: HEMOCHROMATOSIS Cancer(s): NONE 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: BREAST NODULES (R BREAST 1 NODULE PRECANCEROUS) Past Surgical History Surgical History: IVC filter left foot/toe surgery 10/2014 HYSTERECTOMY LUMPECTOMY TO BOTH BREAST Psychosocial History Strengths/Capabilities: seeking help Physical Limitations (Interventions): recent leg injury Psychiatric Treatment History Psych Treatment Psychiatric Treatment Yes Diagnosis: ETOH Dependence 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 Risk Factors: chronic/serious med cond., high anxiety/distress, history of suicide atmpts, SA/MH hospitalized, substance abuse, isolate/no social support, lives alone, limited support Substance Use/Abuse History Drug Use/Abuse Substances Used/Abused Yes Substance Abuse Treatment Substance Abuse Treatment Past Substance Abuse [place] Yes Assessment/Plan Mental Status Orientation: Confused, Current situation, Person Affect: Blunted Speech: Slurred, Soft Neuro-vegetative: Concentration Poor Mental Status Exam: Mental Status Exam Presentation/Appearance: Cooperative with evaluation but often has difficulty responding to questions. Hospital garb. Unkempt Orientation: Oriented to self and situation, unclear if she is oriented to place or time as she does not respond to questions Sensorium: Somnolent Eye contact: Appropriate Affect: Blunted Mood: "I'm sick" Depression: Endorses Anxiety: Endorses Thought Content: - Endorses suicidal ideation with no plan - Endorses visual hallucinations of shapes and people - Endorses auditory hallucinations of voices that are not command in nature Thought Process: Somewhat confused Speech: Soft and slurred Judgment: Poor Insight: Poor Cognition: Memory: Poor Attention/Concentration: Poor MMSE: Not completed Brief ROS Gait: +1 OOB Sleep: Unobtained Appetite: Poor Energy: Low IADLs/ADLs: Requires assist Lab Results: Laboratory Tests 05/06/16 0530: Anion Gap 3 L, Estimated GFR > 60, BUN/Creatinine Ratio 20.0, CBC w Diff NO MAN DIFF REQ, RBC 4.19 L, MCV 86.8, MCH 28.8, RDW 17.7 H, MPV 7.1 L, Gran % 60.0, Lymphocytes % 29.1, Monocytes % 8.2, Eosinophils % 2.4, Basophils % 0.3, Absolute Granulocytes 3.7, Absolute Lymphocytes 1.8, Absolute Monocytes 0.5, Absolute Eosinophils 0.2, Absolute Basophils 0, PUBS MCHC 33.2 05/05/16 1930: Urine Opiates Screen < 100.00, Methadone Screen 89, Barbiturate Screen < 60, Ur Phencyclidine Scrn < 6.00, Amphetamines Screen < 100, U Benzodiazepines Scrn 171 , Urine Cocaine Screen < 50, Urine Cannabis Screen 78.70 H 05/05/16 1841: Anion Gap 12, Estimated GFR > 60, BUN/Creatinine Ratio 14.3, Glucose 105 H, Calcium 9.0, Magnesium 1.5 L, Total Bilirubin 0.3, AST 16, ALT 23, Alkaline Phosphatase 119, Total Protein 6.0 L, Albumin 3.4 L, Globulin 2.6, Albumin/ Globulin Ratio 1.3, CBC w Diff NO MAN DIFF REQ, RBC 4.31, MCV 87.2, MCH 28.5, RDW 18.0 H, MPV 6.9 L, Gran % 53.4, Lymphocytes % 35.7, Monocytes % 7.7, Eosinophils % 2.6, Basophils % 0.6, Absolute Granulocytes 3.5, Absolute Lymphocytes 2.3, Absolute Monocytes 0.5, Absolute Eosinophils 0.2, Absolute Basophils 0, PUBS MCHC 32.7 L, Serum Alcohol 131.0 Diffential Diagnosis: Alcohol use disorder, severe Alcohol withdrawal with perceptual disturbances By history major depressive disorder By history unspecified personality disorder with borderline traits Impression: 60-year-old female presents in the context of alcohol withdrawal now reporting auditory and visual hallucinations. At present she continues to endorse suicidal ideation and she may require inpatient psychiatric hospitalization. Provisional Treatment Plan: 1. Please continue one-to-one sitter as patient continues to endorse suicidal ideation. 2. Please continue CIWA protocol and medicate appropriately with ativan. 3. Please continue vitamin supplementation. 4. Please initiate social work consult to assist with aftercare planning. 5. If the patient does not recant suicidality she may require inpatient psychiatric hospitalization. On previous admissions she has a history of denying suicidality further into her detox. 6. Please continue mirtazapine. 7. Please discontinue Cymbalta until sodium is corrected. 8. Please obtain EKG. If QTc is less than 475 MS would recommend haloperidol 1 mg by mouth every 8 hours for hallucinosis. Thank you for including psychiatry in this case we'll continue to follow. Juvencio Coy APRN, pager [phone]
[2016-05-07] VITALS (10 sets, daily range): BP systolic 100–134; BP diastolic 62–82
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
--- NOTE | 2016-05-07 16:39 | PN- Psychiatry ---
Assessment/Plan Impression: The patient, a 60 y.o. F, well-known to our service, is experiencing hallucinosis and disorganzied thinking, secondary to alcohol withdrawal. She is also on prescribed opiates, which should be continued, in order to avoid opiate withdrawal. Differential Diagnosis: Alcohol use disorder, severe, recurrent Dysthymic disorder, rule out major depressive disorder Acute adjustment disorder Please see the H&P for a complete listing of the patient's medical diagnoses: COPD History of alcohol withdrawal seizures History of hepatitis C History of psoriatic arthritis History of fibromyalgia CIWA as of 1399 today: 6-1-4-51-26-1-5-3-1-7-0-0-12-13 VS as 929: 134/82, 78, 98.2, 18RR As of 1399, she has received a total of 9.5 mg of lorazepam from all sources; 5.5 mg scheduled and 4 mg PRN. EKG 05/06/16 SR 70 bpm, QTc 441 mS. Labs reviewed; potassium and magnesium are within the normal range, but should be repleted to the upper part of the range. I do not feel the CIWA scores reflect the patient's current hallucinosis or disorganized thinking. She would benefit from haloperidol, both as a one time dose now, and as an ongoing measure. Also, scheduled lorazepam for alcohol detox management should be tapered only when the CIWA scores are dropping or the clinical presentation supports the reduction. In this case, the clinical picture is in opposition to the CIWA scoring, and does not support a reduction in lorazepam, at this time. Theoretically, the total of 9.5 mg of lorazepam received in the last 24 hours should be reduced by 20% to arrive at the new scheduled dosing, with support from "as needed" doses. This would result in a new 24 hour total of 7.5 mg scheduled. I will leave the current order for 1.5 mg PO q6 hours, but the total usage should be monitored daily, and the taper interrupted and restored to a higher level if warranted. The patient has had poor insight into her dysthymia and alcohol dependence in the past. 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 She lives in the [facility] in [place] in [facility] and [id number]. She has completed a dual track IOP at [place] several years ago. She reported during an admission a few years ago that she had an inpatient residential rehabilitation stay at [facility]. She is followed by pain management. From an earlier note in December 2014, she reports that she failed several medications for treatment of dysthymia and depression, including Prozac, "it made me crazy, I was awake for days." Also from that note: "She states that her [id number], to her brother Alexander, who committed suicide, was killed the following evening on [place] while handing out candy. She reports that the HALEIGH had several children ranging from 13 years of age through 30s and several grandchildren and that a niece is taking care of them." The patient will need assistance from the team in reconnecting with [facility] for aftercare. Suggestion: 1. Continue the alcohol detox process, and please use the ETOH Detox protocol, which will provide safe management of the lorazepam taper. Continue daily thiamine, folate and MVI. Reduce the scheduled lorazepam by no more than 20% daily, in order to avoid seizure. 2. Haloperidol 1 mg PO one-time dose at 1430 for hallucinosis and confusion. 3. Please start haloperidol 1 mg PO every 8 hours as needed for agitation, halluciations. a. Hold for oversedation b. Hold for arrythmia, bradycardia or QTc greater than 475 mS (Monitor EKG) c. Monitor and replete electrolytes, especially potassium and magnesium, to the upper portions of their normal ranges. 4. Please start haloperidol 2 mg PO every 8 hours as needed for severe or dangerous agitation. Use IM route if patient unable to take PO; do not administer via IV. a. Hold for oversedation b. Hold for arrythmia, bradycardia or QTc greater than 475 mS (Monitor EKG) c. Monitor and replete electrolytes, especially potassium and magnesium, to the upper portions of their normal ranges. 5. In order to avoid possible discontinuation syndrome, duloxetine may be continued. 6. As the patient clears, consider restarting gabapentin for anxiety, an off- label use. 7. Continue the 1:1 sitter until the patient's mentation clears and she can then declare that sheis not suicidal. 8. Currently, her mentation is clouded enough that she should notbe allowed to leave AMA, or otherwise, unless cleared by psychiatry. We will expect to visit the patient again on 05/10/16. Thank-you for asking us to participate in Kelley's care. Florentino Walton APRN, Pager [phone]. Subjective Subjective: The patient is anxious and disorganized, complaining that she does not feel well , and not offering a specific complaint. She denies visual hallucinations, but endorses the feeling of insects on her skin, a tactile hallucination. She endorses confuse and disorganized thinking. She currently denies suicidal ideation, but the sitter should be retained for now. Objective Last 24 Hrs of Vital Signs/I&O Vital Signs Date Time Temp Pulse Resp B/P Pulse O2 O2 Flow FiO2 Ox Delivery Rate 05/07 1450 97.0 85 18 130/70 98 Room Air 05/07 0930 98.2 78 18 134/82 05/07 0827 97.4 83 18 120/80 05/07 0724 97.4 83 20 120/80 91 Room Air 05/07 0600 98.9 68 18 100/70 05/07 0400 98.9 68 18 100/70 05/07 0223 98.9 68 18 100/70 90 Room Air 05/07 0200 98.9 68 18 100/70 /10 0000 99.0 69 20 120/62 09 2200 99.0 69 20 120/62 09 2029 99.0 69 2 120/62 94 09 2000 99.0 69 20 120/62 09 1800 97.4 64 20 104/60 05/06 1712 Room Air Intake & Output 05/07 1600 05/07 0800 05/07 0000 Intake Total 450 240 200 Output Total 900 300 500 Balance -450 -60 -300 Intake, Oral 450 240 200 Number 1 Bowel Movements Output, Urine 900 300 500 Results Last 24 Hrs of Labs/Mics: Laboratory Tests 05/07 0630 Chemistry Sodium (137 - 145 mmol/L) 141 Potassium (3.5 - 5.1 mmol/L) 3.9 Chloride (98 - 107 mmol/L) 104 Carbon Dioxide (22 - 30 mmol/L) 29 Anion Gap (5 - 16) 7 BUN (7 - 17 mg/dL) 7 Creatinine (0.5 - 1.0 mg/dL) 0.5 Estimated GFR (>60 ml/min) > 60 BUN/Creatinine Ratio (7 - 25 %) 14.0 Magnesium (1.6 - 2.3 mg/dL) 1.8
[2016-05-08] VITALS (11 sets, daily range): BP systolic 104–126; BP diastolic 68–80
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
[2016-05-09] VITALS: BP 104/80
[2016-05-09 04:00] VITALS: BP 104/70
[2016-05-09 04:22] VITALS: BP 104/70
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
[2016-05-09 15:00] VITALS: BP 102/60
[2016-05-09 18:08] VITALS: BP 90/60
[2016-05-09 22:00] VITALS: BP 96/70
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
[2016-05-10 07:04] VITALS: BP 130/90
--- NOTE | 2016-05-10 10:55 | PN- Psychiatry ---
Assessment/Plan Impression: The patient's chief complaint right now is nausea R/T pain management. The patient is nauseous as the opiate pain management wears off, relieved when it is administered, but the patient would like to taper off her fentanyl. I suggested to her that she take this up with [facility] pain modeling agency manager. She wishes to resume care at [facility], specifically their IOP. I have called and left a message; expect a return call. The patient reports that the reason for relapse was ineffective pain management. Differential Diagnosis: Alcohol use disorder, severe, recurrent Dysthymic disorder, rule out major depressive disorder Acute adjustment disorder Please see the H&P for a complete listing of the patient's medical diagnoses: COPD History of alcohol withdrawal seizures History of hepatitis C History of psoriatic arthritis History of fibromyalgia CIWA as of 999 today: 2-1-9-2-5-7-4-29-9-4-3-2-5 VS as of 703: 130/90, 82, 97.4, 18RR, 95% RA As of 999, she has received a total of 7 mg of lorazepam from all sources; 4 mg scheduled and 3 mg PRN. This should be tapered at a reduction of 20% daily, or approximately 1.5 mg. (7-1.5=5.5) She has a history of seizure in the setting of alcohol withdrawal. Scheduled lorazepam for alcohol detox management should be tapered only when the CIWA scores are dropping or the clinical presentation supports the reduction. She lives in the [facility] in [place] in [address] and [id number]. She is followed by pain management. Suggestion: 1. Continue the alcohol detox process, and please use the ETOH Detox protocol, which will provide safe management of the lorazepam taper. Continue daily thiamine, folate and MVI. Reduce the scheduled lorazepam by no more than 20% daily, in order to avoid seizure. a. 05/10/16: I suggest lorazepam 1 mg PO q 6 hours, tapering by 1.5 mg total daily. 2. Haloperidol is no longer needed for hallucinosis, and may be D/C 3. Continue duloxetine as currently ordered. 4. Continue mirtazapine as currently ordered. 5. The 1:1 sitter is no longer required for suicidality, although nursing may wish to retain this for other safety concerns. 6. The patient has capacity to decide about her discharge and may be allowed to leave AMA. 7. I have called and left a message at [facility] in [place], where the patient is followed by Aaliyah Garrett, therapist, [phone]. [phone]. I hope to arrange for intake at their dual track IOP when the call is returned. We will continue to follow along with you. Thank-you for asking us to participate in Kelley's care. Florentino Walton APRN, Pager [phone]. Subjective Subjective: A+OX4. Denies SI/HI. Denies AVTH; presents no ronnie delusions. Mood "OK;" affect sad. Pain not scaled, but less than 7-8/10 reported to nursing when pain med administered a short time ago. Objective Last 24 Hrs of Vital Signs/I&O Vital Signs Date Time Temp Pulse Resp B/P Pulse O2 O2 Flow FiO2 Ox Delivery Rate 05/10 0704 97.4 82 18 130/90 95 Room Air 05/09 2200 98.0 72 20 96/70 96 Room Air 05/09 1808 98.1 74 20 90/60 95 Room Air 05/09 1500 97.7 75 18 102/60 94 Intake & Output 05/10 1600 05/10 0800 05/10 0000 Intake Total 400 240 Output Total Balance 400 240 Intake, Oral 400 240 Results Last 24 Hrs of Labs/Mics: Laboratory Tests 05/10 0640 Chemistry Sodium (137 - 145 mmol/L) 140 Potassium (3.5 - 5.1 mmol/L) 3.8 Chloride (98 - 107 mmol/L) 105 Carbon Dioxide (22 - 30 mmol/L) 27 Anion Gap (5 - 16) 9 BUN (7 - 17 mg/dL) 9 Creatinine (0.5 - 1.0 mg/dL) 0.6 Estimated GFR (>60 ml/min) > 60 BUN/Creatinine Ratio (7 - 25 %) 15.0 Magnesium (1.6 - 2.3 mg/dL) 1.8
[2016-05-10 13:54] VITALS: BP 100/60
[2016-05-10 20:30] VITALS: BP 102/50
[2016-05-11 00:59] VITALS: BP 104/50
--- NOTE | 2016-05-11 06:53 | PN- Housestaff ---
MARTA HOYT,[facility] 05/11/16 0652: Subjective Follow-up For: Alcohol withdrawal Subjective: Patient complained of dysuria and frequency last night and urine culture was sent. CIWA scores which were elevated up to 16 yesterday afternoon, have been running 0-4 overnight. Patient was seen and examined this morning. She is sitting comfortably in bed and does not appear anxious. She reports feeling better. She continues to have dysuria and frequency. She denies visual or auditory hallucinations. She is eager to go home to take care of her pet. Review of Systems Constitutional: Reports: see HPI. Objective Last 24 Hrs of Vital Signs/I&O Vital Signs Date Time Temp Pulse Resp B/P Pulse O2 O2 Flow FiO2 Ox Delivery Rate 05/11 0802 97.8 62 20 120/70 92 Room Air 05/11 0723 97.7 62 18 108/70 92 Room Air 05/11 0059 98.3 57 20 104/50 94 Room Air 05/10 2030 98.1 68 20 102/50 97 05/10 1354 97.8 84 20 100/60 93 Room Air Vital Signs Date Time Temp Pulse Resp B/P Pulse O2 O2 Flow FiO2 Ox Delivery Rate 05/11 0802 97.8 62 20 120/70 92 Room Air 05/11 0723 97.7 62 18 108/70 92 Room Air 05/11 0059 98.3 57 20 104/50 94 Room Air 05/10 2030 98.1 68 20 102/50 97 05/10 1354 97.8 84 20 100/60 93 Room Air Intake & Output 05/11 1600 05/11 0800 05/11 0000 Intake Total 100 100 Output Total Balance 100 100 Intake, Oral 100 100 Physical Exam General Appearance: Alert, Oriented X3, No Acute Distress HEENT: Mucous Membr. moist/pink Neck: Supple Cardiovascular: Regular Rate, Normal S1, Normal S2 Lungs: Clear to Auscultation Abdomen: Soft, No Tenderness, Positive Bowel Sounds, No Costovertebral Angle Tenderness Bilaterally Neurological: No Tremors Extremities: No Clubbing, No Cyanosis, No Edema Current Medications: Current Medications Sig/Sharon Start time Last Medication Dose Route Stop Time Status Admin Acetaminophen 650 MG Q6 PRN 05/06 0100 AC 03/11 PO 2140 Albuterol Sulfate 2 PUF Q4P PRN 05/06 1730 AC INH Amoxicillin/ 875 MG Q12 05/11 1000 AC Clavulanate Potassium PO Dicyclomine HCl 20 MG Q6P PRN 05/07 0815 AC 05/09 PO 0455 Duloxetine HCl 60 MG DAILY 05/07 1000 AC 05/10 PO 0905 Enoxaparin Sodium 100 MG DAILY 05/06 1000 AC 05/10 SC 0905 Fentanyl Citrate 100 MCG Q72H 05/07 1615 AC 05/10 TOP 0904 Folic Acid 1 MG DAILY 05/06 1000 AC 05/10 PO 0905 Haloperidol 1 MG Q8P PRN 05/07 1615 AC PO Haloperidol 1 MG ONE PRN 05/07 1500 DC 05/07 PO 1539 Lorazepam 0.5 MG TID 05/10 1000 AC 05/10 PO 05/16 1559 2125 Lorazepam 1 MG Q1P PRN 05/06 0130 AC 05/10 IV 1558 Magnesium Oxide 400 MG ONE ONE 05/11 1015 DC PO 05/11 1016 Melatonin 3 MG AT BEDTIME 05/06 2200 AC 05/10 PO 2125 Mirtazapine 15 MG QPM 05/06 2200 AC 05/10 PO 2125 Multivitamins 1 TAB DAILY 05/06 1000 AC 05/10 PO 0905 Omeprazole 40 MG DAILY AC 05/06 0700 AC 05/11 PO 0602 Ondansetron HCl 4 MG .STK-MED ONE 05/10 1332 DC IM 05/10 1333 Ondansetron HCl 4 MG Q6P PRN 05/07 1000 AC 05/10 IV 1339 Oxycodone HCl 10 MG Q6P PRN 05/06 0315 AC 05/11 PO 0431 Patient Medication 1 ED .STK-MED ONE 05/10 1413 DC Teaching ED 05/10 1414 Thiamine HCl 100 MG DAILY 05/06 1000 AC 05/10 PO 0905 Tiotropium [place] 1 PUF DAILY 05/06 1000 AC 05/10 INH 0905 Tizanidine HCl 4 MG TID 05/06 1000 AC 05/10 PO 2125 Last 24 Hrs of Lab/Wm Results Last 24 Hrs of Labs/Mics: Laboratory Tests 05/11/16 0655: Anion Gap 10, Estimated GFR > 60, BUN/Creatinine Ratio 15.7, Magnesium 1.8 05/10/16 1620: Urinalysis LIGHT H, Urine Color YEL, Urine Clarity HAZY H, Urine pH 8.0, Ur Specific [place] 1.015, Urine Protein 30 H, Urine Ketones NEG, Urine Nitrite NEG, Urine Bilirubin NEG, Urine Urobilinogen 1.0, Ur Leukocyte Esterase SMALL H , Ur Microscopic SEDIMENT EXAMINED, Urine RBC RARE, Urine WBC 25-50 H, Ur Epithelial Cells RARE, Urine Bacteria FEW H, Urine Mucus FEW, Urine Hemoglobin TRACE-INTACT, Urine Glucose NEG UCx (05/10/16): >100,000 colonies/ml of gram negative rods Assessment/Plan Assessment: 59 y/o F with PMHx of chronic opiate use, alcohol dependence, hepatitis B and C who is admitted for alcohol detoxification. #Alcohol withdrawal: CIWA scores have improved to 0-4 since yesterday afternoon. Has required 4 mg of IV Ativan in addition to the scheduled 2 mg of PO Ativan that she received yesterday. * Psych following. Appreciate their recs. * Scheduled Ativan decreased to 0.5 mg PO TID today. * Continue Ativan per CIWA protocol 1 mg IV Q1H PRN. * Continue Haldol 1 mg PO Q8H PRN for hallucinations. * Patient can leave AMA as she is not suicidal. * Continue PO folic acid, MVI and thiamine. #Acute uncomplicated cystitis: Endorses dysuria and frequency. UCx growing >100, 000 colonies of GNRs. Has grown gonsalez-sensitive E. coli in her urine culture in 2011. Allergic to sulfa drugs. * Start Augmentin 500 mg PO BID for 3 days (05/11-05/13). Diet: Regular Fluids: None Lytes: Replete to K > 4 and Mg > 2 DVT PPx: Lovenox and ALPs CODE: FULL Problem List: 1. ALCOHOL WITHDRAWAL 2. Acute cystitis with positive culture Pain Ratin Pain Location: N/A Pain Goal: Remain pain free Pain Plan: Fentanyl patch 100 mcg Roxicodone 10 mg PO Q6H PRN for severe pain (scale 7-10) Tylenol 650 mg PO Q6H PRN for mild pain (scale 1-3) Tomorrow's Labs & Rationales: None Discharge Plan Discharge Disposition: home Anticipated Discharge (Day): tomorrow DENNIS LONDONO MD 05/11/16 0922: Attending Review Statement Attending Statement Attending MD Statement: examined this patient, discuss w/resident/PA/VALVE STEAMER, agreed w/resident/PA/VALVE STEAMER, reviewed EMR data (avail), discussed with nursing, amended to note Attending Assessment/Plan: Patient seen and examined. Sitting down comfortably in bed not in acute distress. She is eager to go home today to see her. Her CIWA was elevated yesterday afternoon but is currently improved. She did receive a total of 6 mg of Ativan from various sources yesterday. She is on a regimen of Ativan 0.5 mg orally 3 times a day. She is not agitated. She is not tremulous. She is hemodynamically stable. I recommend keeping her on this regimen of Ativan without tapering down today and reevaluate in her clinical status tomorrow. Would recommend repeating serum chemistry only if clinically indicated. She reports adequate pain control on her current pain regimen.
[2016-05-11 07:23] VITALS: BP 108/70
[2016-05-11 08:02] VITALS: BP 120/70
[2016-05-11] MEDS ORDERED: FENTANYL1 EAC5 TOP (13:31)
[2016-05-11 13:46] VITALS: BP 132/90
--- NOTE | 2016-05-11 17:24 | PN- Psychiatry ---
Assessment/Plan Impression: The patient is nearing the end of her alcohol detox, and will probably discharge tomorrow, 05/12/16. Differential Diagnosis: Alcohol use disorder, severe, recurrent Dysthymic disorder, rule out major depressive disorder Acute adjustment disorder Please see the H&P for a complete listing of the patient's medical diagnoses: COPD History of alcohol withdrawal seizures History of hepatitis C History of psoriatic arthritis History of fibromyalgia CIWA as of 0600 today: 1-6-0-0-5-7-86-14-2-1-9-3-8 As of 1500, she has received a total of 2.5 mg of lorazepam from all sources; 1.5 mg scheduled and 1 mg PRN. She is willing to attend the IOP program at [facility] in [place], near her home. Suggestion: 1. Continue the alcohol detox process. Continue daily thiamine, folate and MVI. 2. Continue duloxetine as currently ordered. 3. Continue mirtazapine as currently ordered. 4. Either Ligia Edwards, director of case management, or myself will try to confirm an intake appointment with the patient's therapist, Aaliyah Garrett, at [facility] tomorrow. The patient also reports that she can walk in and see the therapist after the group therapy session there tomorrow. We will continue to follow along with you. Thank-you for asking us to participate in Kelley's care. Florentino Walton APRN, Pager 100. Subjective Subjective: A+OX4. Denies SI/HI. Denies AVTH; presents no ronnie delusions. Mood "Much better today;" affect euthymic, congruent. Objective Last 24 Hrs of Vital Signs/I&O Vital Signs Date Time Temp Pulse Resp B/P Pulse O2 O2 Flow FiO2 Ox Delivery Rate 05/11 1346 97.0 58 20 132/90 96 Room Air 05/11 0802 97.8 62 20 120/70 92 Room Air 05/11 0723 97.7 62 18 108/70 92 Room Air 05/11 0059 98.3 57 20 104/50 94 Room Air 05/10 2030 98.1 68 20 102/50 97 Intake & Output 05/11 1600 05/11 0800 05/11 0000 Intake Total 375 100 100 Output Total 800 Balance -425 100 100 Intake, Oral 375 100 100 Number 0 Bowel Movements Output, Urine 800
[2016-05-11 20:00] VITALS: BP 132/90
[2016-05-11 21:44] VITALS: BP 110/80
[2016-05-12] VITALS: BP 110/80
[2016-05-12 04:00] VITALS: BP 110/80
[2016-05-12 06:37] VITALS: BP 114/60
--- NOTE | 2016-05-12 07:09 | PN- Housestaff ---
MARTA HOYT,IMGE 05/12/16 0708: Subjective Follow-up For: Alcohol withdrawal UTI Subjective: No acute events overnight. Patient was seen and examined this morning. She feels much improved and has no complaints. Review of Systems Constitutional: Reports: no symptoms. Objective Last 24 Hrs of Vital Signs/I&O Vital Signs Date Time Temp Pulse Resp B/P Pulse O2 O2 Flow FiO2 Ox Delivery Rate 05/12 0637 98.0 75 20 114/60 93 Room Air 05/12 0400 97.8 83 20 110/80 05/12 0000 97.1 83 20 110/80 05/11 2144 97.1 83 20 110/80 97 Room Air 05/11 2000 97.0 58 20 132/90 Intake & Output 05/12 1600 05/12 0800 05/12 0000 Intake Total 600 360 480 Output Total Balance 600 360 480 Intake, Oral 600 360 480 Physical Exam General Appearance: Alert, Oriented X3, No Acute Distress HEENT: Atraumatic, Mucous Membr. moist/pink Cardiovascular: Regular Rate, Normal S1, Normal S2 Lungs: Clear to Auscultation Abdomen: Soft, No Tenderness, Positive Bowel Sounds Extremities: No Clubbing, No Cyanosis, No Edema Current Medications: Current Medications Sig/Sharon Start time Last Medication Dose Route Stop Time Status Admin Acetaminophen 650 MG Q6 PRN 05/06 0100 DCD 05/08 PO 2140 Albuterol Sulfate 2 PUF Q4P PRN 05/06 1730 DCD INH Amoxicillin/ 500 MG Q12 05/11 2200 DCD 05/11 Clavulanate Potassium PO 2127 Dicyclomine HCl 20 MG Q6P PRN 05/07 0815 DCD 05/09 PO 0455 Duloxetine HCl 60 MG DAILY 05/07 1000 DCD 05/12 PO 1007 Enoxaparin Sodium 100 MG DAILY 05/06 1000 DCD 05/12 SC 1008 Fentanyl Citrate 100 MCG Q72H 05/07 1615 DCD 05/10 TOP 0904 Folic Acid 1 MG DAILY 05/06 1000 DCD 05/12 PO 1007 Haloperidol 1 MG Q8P PRN 05/07 1615 DCD PO Lorazepam 0.5 MG TID 05/10 1000 DCD 05/12 PO 05/16 1559 1006 Lorazepam 1 MG Q1P PRN 05/06 0130 DCD 05/10 IV 1558 Melatonin 3 MG AT BEDTIME 05/06 2200 DCD 05/11 PO 2126 Mirtazapine 15 MG QPM 05/06 2200 DCD 05/11 PO 2127 Multivitamins 1 TAB DAILY 05/06 1000 DCD 05/12 PO 1007 Nicotine 21 MG DAILY 05/11 1041 DCD 05/12 TOP 1007 Omeprazole 40 MG DAILY AC 05/06 0700 DCD 05/12 PO 0527 Ondansetron HCl 4 MG Q6P PRN 05/07 1000 DCD 05/10 IV 1339 Oxycodone HCl 10 MG Q6P PRN 05/06 0315 DCD 05/12 PO 0529 Thiamine HCl 100 MG DAILY 05/06 1000 DCD 05/12 PO 1007 Tiotropium [place] 1 PUF DAILY 05/06 1000 DCD 05/12 INH 1011 Tizanidine HCl 4 MG TID 05/06 1000 DCD 05/12 PO 1007 Last 24 Hrs of Lab/Wm Results Last 24 Hrs of Labs/Mics: UCx (05/10/16): Escherichia coli sensitive to Augmentin and nitrofurantoin Assessment/Plan Assessment: 59 y/o F with PMHx of fibromyalgia with chronic opiate dependence, alcohol dependence, hepatitis B and C who is admitted for alcohol detoxification. #Alcohol withdrawal: CIWA scores mostly 0's. Has not required any extra IV Ativan in addition to her scheduled PO dose. * Discharge home after her last dose of Ativan 0.5 mg. * Instructions provided to follow up with the IOP program at [facility] in [place]. #Acute uncomplicated cystitis: UCx growing E. coli sensitive to Augmentin and nitrofurantoin. S/p 1 day of Augmentin. * Will take Macrobid 100 mg PO BID for two more days after discharge for a total of 3 days of antibiotics. #Fibromyalgia with chronic opiate dependence: Uses Fentanyl patches at home. * Prescription for 3 fentanyl patches provided on discharge. * Will follow up with her PCP who can refer her to a pain specialist. Diet: Regular DVT PPx: Lovenox and ALPs CODE: FULL Problem List: 1. ALCOHOL WITHDRAWAL 2. E. coli UTI 3. Acute cystitis 4. Fibromyalgia 5. Opioid dependence Pain Ratin Pain Location: N/A Pain Goal: Remain pain free Pain Plan: Fentanyl patch 100 mcg Roxicodone 10 mg PO Q6H PRN for severe pain (scale 7-10) Tylenol 650 mg PO Q6H PRN for mild pain (scale 1-3) Tomorrow's Labs & Rationales: None Discharge Plan Discharge Disposition: home Stable for Discharge? Yes Anticipated Discharge (Day): today DIANNE HOYTSVETLANA 05/12/16 1224: Attending MD Review Statement Attending Statement Attending MD Statement: examined this patient, discuss w/resident/PA/INSIDE SALES ENGINEER, agreed w/resident/PA/INSIDE SALES ENGINEER, reviewed EMR data (avail), discussed with nursing, discussed with case mgmt, amended to note Attending Assessment/Plan: Patient seen and examined, feels much better. Offers no complaints. She will receive the last dose of her Ativan today and after that she would be ready for discharge. She has been seen by psychiatry. She will follow-up with her primary care doctor as well as her primary care doctor can refer her to a pain specialist doctor. She will be discharged home today.
--- NOTE | 2016-05-12 07:21 | Patient Discharge Instructions ---
Discharge Instructions General Discharge Information You were seen/treated for: Alcohol detox Urinary tract infection Watch for these problems: Seizure or shaking or trembling Hallucinations Chest pain or trouble breathing Feeling like harming yourself or someone else Vomiting blood Special Instructions: Please see your primary care physician Dr. Rodrigues within one week of discharge. Please follow up with the IOP program at [facility] in [place]. Please take all medications as prescribed. Diet Continue normal diet: Yes Activity Full Activity/No Limits: Yes Acute Coronary Syndrome Inclusion Criteria At DC or during hospital stay patient has or had the following: ACS DIAGNOSIS No Discharge Core Measures Meds if any: Prescribed or Continued at Discharge Meds if any: NOT Prescribed or Continued at Discharge Congestive Heart Failure Inclusion Criteria At DC or during hospital stay patient has or had the following: CHF DIAGNOSIS No Discharge Core Measures Meds if any: Prescribed or Continued at Discharge Meds if any: NOT Prescribed or Continued at Discharge Cerebrovascular accident Inclusion Criteria At DC or during hospital stay patient has or had the following: CVA/TIA Diagnosis No Discharge Core Measures Meds if any: Prescribed or Continued at Discharge Meds if any: NOT Prescribed or Continued at Discharge Venous thromboembolism Inclusion Criteria VTE Diagnosis No VTE Type NONE VTE Confirmed by (Test) NONE Discharge Core Measures - Per Current guidelines, there needs to be overlap - treatment for the first 5 days of Warfarin therapy. - If discharged on Warfarin prior to 5 days of - overlap therapy, the patient will need to be - assessed for post discharge needs including - *Post discharge parental anticoagulation - *Warfarin and/or parental anticoagulation education - *Follow up date to check INR post discharge At least 5 days overlap therapy as Inpatient No Meds if any: Prescribed or Continued at Discharge Note: Overlap Therapy is Warfarin and Anticoagulant Meds if any: NOT Prescribed or Continued at Discharge
[2016-05-12] MEDS ORDERED: MACROBID 100 M100 MG PO (11:26)
[2016-05-12] MEDS ORDERED: FENTANYL1 EAC5 TOP (11:45)
--- NOTE | 2016-05-13 11:52 | Event Note ---
Event Note Event Note: Multiple attempts at electronically submitting patient's prescription for 3 Fentanyl patches to outpatient pharmacy were unsuccessful and met by error messages. As the prescription could not be successfully transmitted electronically, it was printed and signed so that patient could present at [place] outpatient pharmacy to nut picker her prescription. However, it was noted under [employer] e-prescribing software prescription reports that 5 copies of the prescription for 3 Fentanyl patches but had been received by [place] outpatient pharmacy and 1 copy by the [facility] in [place]. To clarify the confusion, [facility] outpatient pharmacy was called who reported that patient had picked up the Fentanyl patches using the paper prescription. 5 Fentanyl patches instead of the prescribed 3 had been given to the patient due to packaging issues as there are 5 patches within each box which cannot be opened before distribution. The electronic prescriptions had not been filled. [facility] was contacted who reported that they never received the electronic prescription for Fentanyl patches.
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
== END 2016-05-12 12:35 | DRG 897 ==
LOC: ENRESERVTM → ENRESERVDT → ERH 16:30 → ERHI 05-06 00:36 → ENPENDDIS 05-06 00:36 → 2NA 05-06 00:36
PROVIDERS: Emergency Medicine; Student in an Organized Health Care Education/Training Program; ADMIT Student in an Organized Health Care Education/Training Program
DX: F10.239 Alcohol dependence with withdrawal, unspecified (principal); F11.20 Opioid dependence, uncomplicated; R45.851 Suicidal ideations; B19.10 Unspecified viral hepatitis B without hepatic coma; E83.42 Hypomagnesemia; N39.0 Urinary tract infection, site not specified; L40.50 Arthropathic psoriasis, unspecified; F10.229 Alcohol dependence with intoxication, unspecified; B96.20 Unspecified Escherichia coli [E. coli] as the cause of diseases classified elsewhere; F12.90 Cannabis use, unspecified, uncomplicated; Y90.6 Blood alcohol level of 120-199 mg/100 ml; B19.20 Unspecified viral hepatitis C without hepatic coma; J44.9 Chronic obstructive pulmonary disease, unspecified; F32.9 Major depressive disorder, single episode, unspecified; M79.7 Fibromyalgia; K21.9 Gastro-esophageal reflux disease without esophagitis; F17.210 Nicotine dependence, cigarettes, uncomplicated; E83.119 Hemochromatosis, unspecified; I10 Essential (primary) hypertension; E78.00 Pure hypercholesterolemia, unspecified; F60.9 Personality disorder, unspecified
CPT/HCPCS: 2NASP; 36415; 80307; 81001; 82436; 87086; 93005; 93010; 99232; 99233; G0480; J0131; J1650; J2405; J3490; J7060

== ENCOUNTER 2016-05-29 00:25 | Emergency (ER) | payer OTHER, MEDICARE ==
[~2016-05-29] VITALS: Ht 175.3 cm; Wt 85.3 kg
[~2016-05-29 00:25] MED LIST changes: +MACROBID 100 M100 MG PO
--- NOTE | 2016-05-29 01:18 | ED PSYCHIATRIC COMPLAINT ---
History of Present Illness General Chief Complaint: ETOH/Drug Related Complaint Stated Complaint: " ETOH DETOX" Source: patient Exam Limitations: intoxication Vital Signs & Intake/Output Vital Signs & Intake/Output Vital Signs Date Time Temp Pulse Resp B/P Pulse O2 O2 Flow FiO2 Ox Delivery Rate 05/29 621 98.6 112 20 123/74 96 Room Air 05/29 0616 98.6 112 18 123/74 05/29 0406 98.7 98 16 130/87 05/29 040 98.7 98 16 130/87 97 Room Air 05/29 0031 97.8 100 18 123/85 94 Room Air Allergies Coded Allergies: Sulfa (Sulfonamide Antibiotics) (Mild, HIVES 07/03/15) amitriptyline (HIVES 07/03/15) Reconcile Medications Budesonide/Formoterol Fumara (Symbicort 80-4.5 Mcg Inhaler) 80 MCG/4.5 MCG PUF 2 PUFF INH BID COPD (Reported) Clobetasol Propionate 15 GM OINT...G. 1 GARRETT TOP BID INFECTION (Reported) DULOXETINE HCL (Cymbalta) 60 MG ECC 1 CAP PO DAILY MENTAL HEALTH (Reported) Enoxaparin Sodium (Lovenox) 120 MG/0.8 ML SYRINGE 120 MG SC DAILY hx of DVT/PE (Reported) Fentanyl 100 MCG/HOUR PATCH.TD72 1 PAT TOP Q3D chr. pain Gabapentin (Neurontin) 300 MG CAP 600 MG PO TID MENTAL HEALTH/NERVE PAIN ( Reported) Lorazepam (Ativan) 1 MG TABLET 2 TAB PO TID PRN anxiety 2 TABS EVERY 8 HOURS ON DAY 1, 2 TABS EVERY 12 HOURS ON DAY 2, ONE TABLET EVERY 8 HOURS ON DAY 3, 1 TABLET EVERY 12 HOURS ON DAY 4, 1 TABLET ON DAY 5 Melatonin 3 MG CAP 1 CAP PO QPM SLEEP (Reported) Mirtazapine (Remeron) 15 MG TABLET 1 TAB PO QPM SLEEP (Reported) Multivitamin (Multiple Vitamins) 1 TAB TAB 1 TAB PO DAILY Supplement Nitrofurantoin Monohyd/M-Cryst (Macrobid 100 MG Capsule) 100 MG CAPSULE 1 CAP PO BID INFECTION with food Pantoprazole Sodium (Protonix) 40 MG GRANPKT.DR 1 TAB PO BID ACID REFLUX ( Reported) THIAMINE HCL (Thiamine HCl) 50 MG TAB 1 TAB PO DAILY Supplement Tiotropium [place] (Spiriva) 18 MCG CAP 1 CAP INH DAILY COPD (Reported) Triage Note: PT TO ED REQUESTING ETOH DETOX. STATES DRINKS A QUART OF VODKA DAILY. HAS BEEN DOING SO FOR YEARS. DENIES ILLICIT DRUGS. DENIES SI/HI. 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 PT SMELLS STRONGLY OF ETOH. STATES HAS HAD SEIZURES IN THE PAST WHEN SHE STOPPED DRINKING. PT VERY ANXIOUS. C/O HEADACHE [phone] GEORGE SERVIN, SON Triage Nurses Notes Reviewed? yes HPI: Patient presents for evaluation of alcohol intoxication and the need for detox, this despite detox about one month ago here at [facility]. Patient admits to drinking "a lot" this evening. Has no specific complaint otherwise. Past History Travel History Traveled to [facility] past 21 day No Medical History Any Pertinent Medical History? see below for history Neurological: FIBROMYALGIA seizure in the setting of alcohol withdrawal EENT: NONE Cardiovascular: NONE Respiratory: COPD, emphysema Gastrointestinal: GERD, POLYPS IN COLON Hepatic: hepatitis B, hepatitis C Renal: 2 CYSTS IN L KIDNEY Musculoskeletal: osteoarthritis, psoariatic arthritis, OSTEOPENIA Psychiatric: alcohol dependence, anxiety, depression, dysthymic disorder Endocrine: THYROID NODULE Blood Disorders: HEMOCHROMATOSIS Cancer(s): NONE HEALTH EDUCATION DIRECTOR/Reproductive: BREAST NODULES (R BREAST 1 NODULE PRECANCEROUS) Other Medical Hx: bilateral DVT in past History of MRSA: No History of VRE: No History of CDIFF: No Influenza Vaccine: 10/30/15 Surgical History Surgical History: IVC filter left foot/toe surgery 10/2014 HYSTERECTOMY LUMPECTOMY TO BOTH BREAST Psychosocial History Who do you live with Patient/Self Services at Home None What is your primary language Gibraltarian Tobacco Use: Current Daily Use Daily Tobacco Use Amount/Type: => 5 Cigarettes daily ETOH Use: alcoholic Illicit Drug Use: denies illicit drug use Family History Family History, If Any: Relation not specified for: *No pertinent family history Hx Contributory? No Review of Systems Review of Systems Constitutional: Reports: no symptoms. EENTM: Reports: no symptoms. Respiratory: Reports: no symptoms. Cardiovascular: Reports: no symptoms. GI: Reports: no symptoms. Genitourinary: Reports: no symptoms. Musculoskeletal: Reports: see HPI. Skin: Reports: no symptoms. Neurological/Psychological: Reports: no symptoms. Hematologic/Endocrine: Reports: no symptoms. Immunologic/Allergic: Reports: no symptoms. All Other Systems: Reviewed and Negative Physical Exam Physical Exam General Appearance: SEE BELOW Neurological/Psychiatric: SEE BELOW Comments: General: Alert, calm, cooperative, EtOH like odor Head: Normocephalic, atraumatic Eyes: Normal inspection, no nystagmus, EOMI Ears: Normal inspection Nose: Normal inspection Throat: Moist mucosa Neck: Supple, no goiter Heart: Regular rate and rhythm, no murmurs rubs or gallops Lungs: Clear to auscultation bilaterally with good air entry Abdomen: Soft nontender nondistended, normal bowel sounds Chest: Nontender Extremities: Normal range of motion grossly, No tremors present, no cyanosis clubbing or edema of the upper extremities Neurologic: cranial nerves II through XII grossly intact, speech slurred, gait normal Psychiatric: No apparent delusions or hallucinations, no pressured speech or thought blocking SAD PERSONS Done? patient not suicidal Progress Differential Diagnosis: drug intoxication Plan of Care: Orders Procedure Date/time Status CIWA 05/29 401 Active MAGNESIUM 05/29 118 Complete LIPASE 05/29 118 Complete ETHANOL 05/29 118 Complete COMPREHENSIVE METABOLIC PANEL 05/29 118 Complete CBC WITHOUT DIFFERENTIAL 05/29 118 Complete URINE DRUG SCREEN FOR ER ONLY 05/30 103 Complete URINALYSIS 05/30 103 Complete Laboratory Tests 05/29/16 0125: Anion Gap 13, Estimated GFR > 60, BUN/Creatinine Ratio 16.7, Glucose 88, Calcium 9.4, Magnesium 1.4 L, Total Bilirubin 0.3, AST 21, ALT 29, Alkaline Phosphatase 89, Total Protein 6.7, Albumin 4.0, Globulin 2.7, Albumin/Globulin Ratio 1.5, Lipase 65, CBC w Diff NO MAN DIFF REQ, RBC 5.27, MCV 86.4, MCH 28.9, RDW 17.3 H , MPV 7.1 L, Gran % 64.5, Lymphocytes % 28.5, Monocytes % 5.6, Eosinophils % 0.8, Basophils % 0.6, Absolute Granulocytes 5.5, Absolute Lymphocytes 2.4, Absolute Monocytes 0.5, Absolute Eosinophils 0.1, Absolute Basophils 0.1, PUBS MCHC 33.5, Serum Alcohol 217.0 05/29/16 012: Magnesium Cancelled, Lipase Cancelled 05/29/16 0105: Urine Opiates Screen < 100.00, Methadone Screen 625 H, Barbiturate Screen < 60, Ur Phencyclidine Scrn < 6.00, Amphetamines Screen < 100, U Benzodiazepines Scrn < 85, Urine Cocaine Screen < 50, Urine Cannabis Screen < 5.00, Urine Color STRAW , Urine Clarity CLEAR, Urine pH 6.0, Ur Specific [place] 1.010, Urine Protein NEG, Urine Ketones NEG, Urine Nitrite NEG, Urine Bilirubin NEG, Urine Urobilinogen 0.2, Ur Leukocyte Esterase NEG, Ur Microscopic EXAM NOT REQUIRED, Urine Hemoglobin NEG, Urine Glucose NEG Comments: 05/29/2016 6:29:53 AM patient appears clinically sober. Estimating her alcohol metabolism she should have a blood alcohol level less than 0.02. The patient's CIWA score is 6. The patient does not meet criterion for inpatient detox according to the [facility] emergency medicine alcohol detoxification protocol. I have explained this to the patient and she will call her son for a ride home. I will give her a prescription for Ativan to help her through her withdrawal. She has a primary care physician in [place] that she can see in follow -up. Departure Departure Disposition: HOME OR SELF CARE Condition: Stable Clinical Impression Primary Impression: Alcohol intoxication Qualifiers: Complication of substance-induced condition: uncomplicated Qualified Code: F10.120 - Alcohol abuse with intoxication, uncomplicated Referrals: UNKNOWN (PCP/Family) Additional Instructions: Abdomen as prescribed for alcohol withdrawal. Follow-up with your primary care doctor on Tuesday for reevaluation or seek a detox program as soon as possible. Return if any concerns or sudden worsening. Departure Forms: Customer Survey General Discharge Information Prescriptions: Current Visit Scripts Lorazepam (Ativan) 2 TAB PO TID PRN anxiety #16 TAB 2 TABS EVERY 8 HOURS ON DAY 1, 2 TABS EVERY 12 HOURS ON DAY 2, ONE TABLET EVERY 8 HOURS ON DAY 3, 1 TABLET EVERY 12 HOURS ON DAY 4, 1 TABLET ON DAY 5 #16 TAB 2 TABS EVERY 8 HOURS ON DAY 1, 2 TABS EVERY 12 HOURS ON DAY 2, ONE TABLET EVERY 8 HOURS ON DAY 3, 1 TABLET EVERY 12 HOURS ON DAY 4, 1 TABLET ON DAY 5
[2016-05-29 01:34] LABS: ABSOLUTE BASOPHIL COUNT 0.1 /CUMM (0.0-0.2); ABSOLUTE EOSINOPHIL COUNT 0.1 /CUMM (0.0-0.7); ABSOLUTE GRANULOCYTE CT 5.5 /CUMM (1.4-6.5); ABSOLUTE LYMPH COUNT 2.4 /CUMM (1.2-3.4); ABSOLUTE MONOCYTE COUNT 0.5 /CUMM (0.10-0.60); BASOPHIL % 0.6 % (0.0-2.0); EOSINOPHIL % 0.8 % (0-5); GRANULOCYTE % 64.5 % (42.2-75.2); HEMATOCRIT 45.5 % (37-47); MEAN CORPUSCULAR HGB 28.9 PG (27.0-31.0); MEAN CORPUSCULAR HGB CONC 33.5 G/DL (33.0-37.0); MEAN CORPUSCULAR VOLUME 86.4 FL (81.0-99.0); MEAN PLATELET VOLUME 7.1 FL (7.4-10.4); PLATELET COUNT 265 /CUMM (130-400); RBC DISTRIBUTION WIDTH 17.3 % (11.5-14.5); RED BLOOD CELL CT 5.27 /CUMM (4.20-5.40); WHITE BLOOD CELL COUNT 8.5 /CUMM (4.8-10.8)
[2016-05-29 06:22] VITALS: BP 123/74
[2016-05-29] MEDS ORDERED: ATIVAN1 M1 PO (06:35)
== END 2016-05-29 07:34 ==
LOC: ERH 00:25
PROVIDERS: Emergency Medicine
DX: F10.129 Alcohol abuse with intoxication, unspecified (principal)
CPT/HCPCS: 80307; 81003; G0480

== ENCOUNTER 2016-07-11 11:40 | Inpatient (IN) | payer OTHER, MEDICARE ==
[~2016-07-11] VITALS: Ht 175.3 cm; Wt 77.1 kg
--- NOTE | 2016-07-11 11:57 | ED GENERAL ADULT ---
See Addendum History of Present Illness General Chief Complaint: Psychiatric Related Complaint Stated Complaint: WANTS DETOX ?OVERDOSE Source: patient, old records Exam Limitations: no limitations Vital Signs & Intake/Output Vital Signs & Intake/Output Vital Signs Date Time Temp Pulse Resp B/P B/P Pulse O2 O2 Flow FiO2 Mean Ox Delivery Rate 07/12 0857 97.5 80 18 128/78 07/12 0809 97.5 80 18 128/78 98 Room Air 07/12 0628 97.4 62 18 122/71 07/12 0627 98.4 87 18 122/71 94 Room Air 07/12 0426 97.8 99 20 133/87 07/12 0426 97.8 99 21 133/87 98 Room Air 07/12 0232 97.3 81 18 140/71 07/12 0232 97.3 81 20 140/71 97 Room Air 07/12 0037 97.3 82 18 142/70 07/12 0037 97.3 82 20 142/70 98 Room Air 07/11 2148 97.4 87 20 147/82 07/11 2145 97.4 87 20 147/72 94 Room Air 07/11 2030 96.2 79 18 145/89 100 Room Air 07/11 1810 102 18 113/75 07/11 1734 98.1 102 18 113/75 95 Room Air 07/11 1707 98.0 114 18 154/90 07/11 1706 98.0 114 16 154/90 98 Room Air 07/11 1526 97.0 112 18 158/107 07/11 1510 97.0 112 18 158/107 96 Room Air 07/11 1345 96 Room Air 07/11 1224 90 18 137/93 07/11 1210 90 18 137/93 95 Room Air 07/11 1146 97.7 103 16 150/90 91 Room Air ED Intake and Output 07/12 0000 07/11 1200 Intake Total Output Total Balance Patient 170 lb Weight Weight Reported by Patient Measurement Method Allergies Coded Allergies: Sulfa (Sulfonamide Antibiotics) (Mild, HIVES 07/03/15) amitriptyline (HIVES 07/03/15) Triage Note: PT BROUGHT IN BY SON FOR ETOH. PT REQUESTING DETOX FROM ETOH. PT STATES SHE DOES HAVE HX OF ETOH WITHDRAWEL SEIZURES. PT ADMITS TO TAKING ONE ATIVAN 2MG TAB THIS AM. PT IS A PAIN CLINIC PT FOR HER BILAT KNEE PAIN. PT DENIES SI/HI, PT DENIES DRUG USE. Triage Nurses Notes Reviewed? yes HPI: Patient presents requesting alcohol detox. Patient states that she drinks because the pain is so bad from her fibromyalgia and her pain medication that she has is not enough. Patient sees a pain clinic but wants to go see a different one because the pain clinic that she goes to is not giving her enough medication. Patient denies any current suicidal homicidal ideations. Patient states that IV Ativan doesn't work for her and she needs IV Valium just to go to sleep for the next few days. Patient states that the beds that she is staying on is really just a piece of wood with a very small mattress and she needs a soft bed to stay in for the next few days. (JAYDON HOYT,LORNA Montgomery) Reconcile Medications Budesonide/Formoterol Fumarate (Symbicort 80-4.5 Mcg Inhaler) 80 MCG-4.5 MCG/ ACTUATION HFA.AER.AD 2 PUF INH BID COPD (Reported) Duloxetine HCl (Cymbalta) 60 MG CAPSULE.DR 1 CAP PO DAILY MENTAL HEALTH ( Reported) Enoxaparin Sodium (Lovenox) 120 MG/0.8 ML SYRINGE 120 MG SC DAILY hx of DVT/PE (Reported) Fentanyl 100 MCG/HOUR PATCH.TD72 1 PAT TOP Q3D chr. pain Gabapentin (Neurontin) 600 MG TABLET 1 TAB PO TID MENTAL HEALTH/NERVE PAIN ( Reported) Lorazepam (Ativan) 1 MG TABLET 2 TAB PO TID PRN anxiety 2 TABS EVERY 8 HOURS ON DAY 1, 2 TABS EVERY 12 HOURS ON DAY 2, ONE TABLET EVERY 8 HOURS ON DAY 3, 1 TABLET EVERY 12 HOURS ON DAY 4, 1 TABLET ON DAY 5 Melatonin 3 MG TABLET 1 TAB PO QPM SLEEP (Reported) Mirtazapine (Remeron) 15 MG TABLET 1 TAB PO QPM SLEEP (Reported) Multivitamin (Daily Multiple Vitamin) 1 EACH TABLET 1 TAB PO DAILY VITAMIN SUPPORT (Reported) Pantoprazole Sodium (Protonix) 40 MG TABLET.DR 1 TAB PO DAILY ACID REFLUX ( Reported) Thiamine HCl 50 MG TABLET 1 TAB PO DAILY VITAMIN SUPPORT (Reported) Tiotropium [place] (Spiriva) 18 MCG CAP.W.DEV 1 CAP INH DAILY COPD (Reported) (DEJAN FLETCHER DO) Past History Travel History Traveled to [place] past 21 day No Medical History Any Pertinent Medical History? 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: BREAST NODULES (R BREAST 1 NODULE PRECANCEROUS) Other Medical Hx: bilateral DVT in past History of MRSA: No History of VRE: No History of CDIFF: No Influenza Vaccine: 10/30/15 Surgical History Surgical History: IVC filter left foot/toe surgery 10/2014 HYSTERECTOMY LUMPECTOMY TO BOTH BREAST Psychosocial History Who do you live with Patient/Self Services at Home None What is your primary language Tajik Tobacco Use: Current Daily Use Daily Tobacco Use Amount/Type: => 5 Cigarettes daily ETOH Use: alcoholic Illicit Drug Use: denies illicit drug use Family History Family History, If Any: Relation not specified for: *No pertinent family history Hx Contributory? No (JAYDON HOYT,LORNA Montgomery) Review of Systems Review of Systems Constitutional: Reports: no symptoms. EENTM: Reports: no symptoms. Respiratory: Reports: no symptoms. Cardiovascular: Reports: no symptoms. GI: Reports: no symptoms. Genitourinary: Reports: no symptoms. Musculoskeletal: Reports: see HPI, back pain, joint pain. Skin: Reports: no symptoms. Neurological/Psychological: Reports: see HPI, anxiety. Hematologic/Endocrine: Reports: no symptoms. Immunologic/Allergic: Reports: no symptoms. All Other Systems: Reviewed and Negative (LORNA INTERIANO MD) Physical Exam Physical Exam General Appearance: well developed/nourished, alert, awake, moderate distress, intoxicated Head: atraumatic, normal appearance Eyes: Bilateral: PERRL, EOMI, other (SLUGGISH). Ears, Nose, Throat: normal pharynx, normal ENT inspection, hearing grossly normal Neck: normal inspection, supple, full range of motion Respiratory: normal breath sounds, chest non-tender, no respiratory distress, lungs clear Cardiovascular: regular rate/rhythm, normal peripheral pulses Gastrointestinal: normal bowel sounds, soft, non-tender, no organomegaly Back: normal inspection, normal range of motion Extremities: normal inspection, normal capillary refill, normal range of motion, no edema Neurologic/Psych: no motor/sensory deficits, awake, alert, oriented x 3, normal mood/affect, SLURRING WORDS Skin: intact, normal color, warm/dry Lymphatic: no anterior cervical erica Core Measures ACS in differential dx? No CVA/TIA Diagnosis: No Severe Sepsis Present: No Septic Shock Present: No (JAYDON HOYT,LORNA Montgomery) Progress Differential Diagnoses I considered the following diagnoses in my evaluation of the patient: [Alcohol intoxication, drug intoxication, alcohol withdrawal, electrolyte abnormality] Plan of Care: Orders Procedure Date/time Status Regular Diet 07/11 D Active CASE MANAGEMENT CONSULT 07/11 1156 Active CIWA 07/11 1155 Active URINE DRUGS OF ABUSE 07/11 1155 Complete MAGNESIUM 07/11 1155 Complete ETHANOL 07/11 1155 Complete COMPREHENSIVE METABOLIC PANEL 07/11 1155 Complete CBC WITHOUT DIFFERENTIAL 07/11 1155 Complete Current Medications Sig/Sharon Start time Last Medication Dose Stop Time Status Admin Mirtazapine 15 MG AT BEDTIME 07/12 2200 CAN (Remeron) Mirtazapine 15 MG AT BEDTIME 07/11 2215 AC 07/11 (Remeron) 2225 Gabapentin 600 MG Q8 07/11 220 UNVr 07/12 (Neurontin) 0630 Lorazepam 1 MG TID 07/12 2207 AC 07/11 (Ativan) 2225 Laboratory Tests 07/11/16 1545: Urine Opiates Screen 250.00, Methadone Screen 181, Barbiturate Screen < 60, Ur Phencyclidine Scrn < 6.00, Amphetamines Screen < 100, U Benzodiazepines Scrn 438 H, Urine Cocaine Screen < 50, Urine Cannabis Screen < 5.00 07/11/16 1210: Anion Gap 14, Estimated GFR > 60, BUN/Creatinine Ratio 13.3, Glucose 109 H, Calcium 9.6, Magnesium 1.8, Total Bilirubin 0.4, AST 24, ALT 27, Alkaline Phosphatase 89, Total Protein 7.5, Albumin 4.5, Globulin 3.0, Albumin/Globulin Ratio 1.5, CBC w Diff NO MAN DIFF REQ, RBC 5.61 H, MCV 87.5, MCH 29.4, RDW 18.3 H, MPV 7.7, Gran % 52.7, Lymphocytes % 39.8, Monocytes % 5.8, Eosinophils % 1.4 , Basophils % 0.3, Absolute Granulocytes 5.9, Absolute Lymphocytes 4.4 H, Absolute Monocytes 0.7 H, Absolute Eosinophils 0.2, Absolute Basophils 0, PUBS MCHC 33.5, Serum Alcohol 339.0 Initial ED EKG: none Hand-Off Endorsed To: CHRISTINA WILSON MD Endorsed Time: 1900 Pending: consult (CASE MANAGEMENT), other (SOBRIEYT) Comments: Patient's CIWA score is escalating. Patient given IV Valium since she states that IV Ativan does not work on her. The paperwork has been submitted to the state. Pending approval. (JAYDON HOYT,LORNA Montgomery) Hand-Off Endorsed To: SANTA ESCAMILLA MD Endorsed Time: 0700 Pending: consult (CHRISTINA WILSON MD) Differential Diagnoses I considered the following diagnoses in my evaluation of the patient: (DEJAN FLETCHER DO) Departure Departure Disposition: STILL A PATIENT Condition: Stable Clinical Impression Primary Impression: Alcohol intoxication Referrals: UNKNOWN (PCP/Family) Departure Forms: Customer Survey General Discharge Information (JAYDON HOYT,LORNA Montgomery) Departure Comments 07/12/16 9:38 am The patient was signed out to me by Dr. Wilson at 7 AM. She is having active symptoms of withdrawal. Her CIWA scores are 15 and she has a prior history of alcohol withdrawal seizures. Admission Note Spoke With: DENNIS LONDONO M.D Documentation of Exam: Documentation of any treatments & extenuating circumstances including Concerns Regarding Discharge (functional status, medication knowledge or non-compliance, living conditions, etc.) that warrant an admission rather than observation: [The patient needs admission for neuro checks every 6 hours, IV Ativan, seizure precautions,] Alcohol Withdrawl Admission ED Alcohol Detox Admission d/t: CIWA Score >15, DTs/Seizure w/i last year (DEJAN FLETCHER DO) Critical Care Note Critical Care Note Critical Care Time: non-applicable (JAYDON HOYT,LORNA Montgomery)
[2016-07-11 12:23] LABS: ABSOLUTE BASOPHIL COUNT 0 /CUMM (0.0-0.2); ABSOLUTE EOSINOPHIL COUNT 0.2 /CUMM (0.0-0.7); ABSOLUTE GRANULOCYTE CT 5.9 /CUMM (1.4-6.5); ABSOLUTE LYMPH COUNT 4.4 /CUMM (1.2-3.4); ABSOLUTE MONOCYTE COUNT 0.7 /CUMM (0.10-0.60); BASOPHIL % 0.3 % (0.0-2.0); EOSINOPHIL % 1.4 % (0-5); GRANULOCYTE % 52.7 % (42.2-75.2); HEMATOCRIT 49.1 % (37-47); MEAN CORPUSCULAR HGB 29.4 PG (27.0-31.0); MEAN CORPUSCULAR HGB CONC 33.5 G/DL (33.0-37.0); MEAN CORPUSCULAR VOLUME 87.5 FL (81.0-99.0); MEAN PLATELET VOLUME 7.7 FL (7.4-10.4); PLATELET COUNT 202 /CUMM (130-400); RBC DISTRIBUTION WIDTH 18.3 % (11.5-14.5); RED BLOOD CELL CT 5.61 /CUMM (4.20-5.40); WHITE BLOOD CELL COUNT 11.2 /CUMM (4.8-10.8)
[2016-07-11 12:24] VITALS: BP 137/93
[2016-07-11 15:26] VITALS: BP 158/107
[2016-07-11 17:07] VITALS: BP 154/90
[2016-07-11 18:10] VITALS: BP 113/75
[2016-07-11 21:48] VITALS: BP 147/82
[2016-07-12] VITALS (11 sets, daily range): BP systolic 122–158; BP diastolic 70–90
[2016-07-12] MEDS ORDERED: DAILY MULTIPLE1 EACH PO (09:19)
[2016-07-12] MEDS ORDERED: THIAMINE HCL50 M1 PO (09:20)
--- NOTE | 2016-07-12 09:53 | History & Physical ---
PAMELA MURDOCK MD 07/12/16 0952: General Information and HPI MD Statement: I have seen and personally examined JOE WOODS and documented this H&P. The patient is a 60 year old F who presented with a patient stated chief complaint of [requesting alcohol detox]. History of Present Illness: This is a 60 yo F smoker, with h/o alcohol dependence with multiple failed attempts at detox(last one being in April 2016) withdrawal seizures, Hep B and C (no treatment indicated), hemochromatosis ,homozygous HFE H63D mutation, depression, HTN, COPD, psoriatic arthritis, chronic opiate dependence, fibromyalgia, b/l DVT s/p IVC on Lovenox, deep venous thrombosis, heterozygous Factor V Leiden,is here requesting alcohol detox. The patient was brought in to the hospital by her son. The patient's last drink was yesterday at 8:45 AM a pint of vodka and night befoRE which also included 1 pint of vodka. She has been struggling with her back pain and has been on and off visiting [facility] pain clinic and requesting Suboxone for the opioid withdrawal. She has been successfully weaned off the fentanyl patch and hence thinks that that she start drinking again. She was last seen in the pain clinic in 06/30/16 and the provider was considering starting her on methadone.She has a history of alcohol-induced seizures in December 2015 but is not on any antiseizure medications. The patient also has acute intermittent cough which is sometimes productive of yellowish sputum but denies any fever or chills. She has been feeling nauseous but did not have any episodes of vomiting while in the hospital or at home. No recent sick contacts Allergies/Medications Allergies: Coded Allergies: Sulfa (Sulfonamide Antibiotics) (Mild, HIVES 07/03/15) amitriptyline (HIVES 07/03/15) Home Med list Budesonide/Formoterol Fumarate (Symbicort 80-4.5 Mcg Inhaler) 80 MCG-4.5 MCG/ ACTUATION HFA.AER.AD 2 PUF INH BID COPD (Reported) Duloxetine HCl (Cymbalta) 60 MG CAPSULE.DR 1 CAP PO DAILY MENTAL HEALTH ( Reported) Enoxaparin Sodium (Lovenox) 120 MG/0.8 ML SYRINGE 120 MG SC DAILY hx of DVT/PE (Reported) Gabapentin (Neurontin) 600 MG TABLET 1 TAB PO TID MENTAL HEALTH/NERVE PAIN ( Reported) Melatonin 3 MG TABLET 1 TAB PO QPM SLEEP (Reported) Mirtazapine (Remeron) 15 MG TABLET 1 TAB PO QPM SLEEP (Reported) Multivitamin (Daily Multiple Vitamin) 1 EACH TABLET 1 TAB PO DAILY VITAMIN SUPPORT (Reported) Pantoprazole Sodium (Protonix) 40 MG TABLET.DR 1 TAB PO DAILY ACID REFLUX ( Reported) Thiamine HCl 50 MG TABLET 1 TAB PO DAILY VITAMIN SUPPORT (Reported) Tiotropium [place] (Spiriva) 18 MCG CAP.W.DEV 1 CAP INH DAILY COPD (Reported) Past History Travel History Traveled to [place] past 21 day No Medical History Neurological: FIBROMYALGIA seizure in the setting of alcohol withdrawal EENT: NONE Cardiovascular: NONE Respiratory: COPD, emphysema Gastrointestinal: GERD, POLYPS IN COLON Hepatic: hepatitis B, hepatitis C Renal: 2 CYSTS IN L KIDNEY Musculoskeletal: osteoarthritis, psoariatic arthritis, OSTEOPENIA Psychiatric: alcohol dependence, anxiety, depression, dysthymic disorder Endocrine: THYROID NODULE Blood Disorders: HEMOCHROMATOSIS Cancer(s): NONE 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 self Services at Home: None Primary Language: Central African Smoking Status: Former Smoker ETOH Use: alcoholic Illicit Drug Use: denies illicit drug use Functional Ability ADLs Independent: dressing, eating, toileting, bathing. Ambulation: cane Review of Systems Review of Systems Constitutional: Reports: see HPI. EENTM: Reports: see HPI. Respiratory: Reports: cough. Denies: orthopnea, short of breath. GI: Denies: constipation, diarrhea. Genitourinary: Denies: dysuria, frequency, hematuria. Musculoskeletal: Denies: back pain, gout, joint pain. Exam & Diagnostic Data Last 24 Hrs of Vital Signs/I&O Vital Signs Date Time Temp Pulse Resp B/P B/P Pulse O2 O2 Flow FiO2 Mean Ox Delivery Rate 07/12 1013 98.2 90 20 158/88 97 Room Air 07/12 0857 97.5 80 18 128/78 05/15 0809 97.5 80 18 128/78 98 Room Air 07/12 0628 97.4 62 18 122/71 05/15 0627 98.4 87 18 122/71 94 Room Air 07/12 0426 97.8 99 20 133/87 05/15 0426 97.8 99 21 133/87 98 Room Air 07/12 0232 97.3 81 18 140/71 05/15 0232 97.3 81 20 140/71 97 Room Air 07/12 0037 97.3 82 18 142/70 05/15 0037 97.3 82 20 142/70 98 Room Air 07/11 2148 97.4 87 20 147/82 / 2145 97.4 87 20 147/72 94 Room Air 07/11 2030 96.2 79 18 145/89 100 Room Air 07/11 1810 102 18 113/75 /14 1734 98.1 102 18 113/75 95 Room Air 07/11 1707 98.0 114 18 154/90 05/ 1706 98.0 114 16 154/90 98 Room Air 07/11 1526 97.0 112 18 158/107 / 1510 97.0 112 18 158/107 96 Room Air 07/11 1345 96 Room Air 07/11 1224 90 18 137/93 05/ 1210 90 18 137/93 95 Room Air 07/11 1146 97.7 103 16 150/90 91 Room Air Physical Exam General Appearance Alert, Oriented X3, Cooperative Skin No Rashes, No Breakdown Skin Temp/Moisture Exam: Warm/Dry Sepsis Skin Exam (color): Normal for Ethnicity HEENT Atraumatic, PERRLA Neck Supple, No JVD Lymphatic Axillary nl, Cervical nl Cardiovascular Normal S1, Normal S2 Lungs Normal Air Movement, bilateral decreased airway entry Assessment/Plan Assessment: This is a 60 yo F smoker, with h/o alcohol dependence with multiple failed attempts at detox(last one being in April 2016) withdrawal seizures, Hep B and C (no treatment indicated), hemochromatosis ,homozygous HFE H63D mutation, depression, HTN, COPD, psoriatic arthritis, chronic opiate dependence, fibromyalgia, b/l DVT s/p IVC on Lovenox, deep venous thrombosis, heterozygous Factor V Leiden,is here requesting alcohol detox. Vitals at the time of admission showed Blood pressure of 141/80, pulse rate of 58, respiration rate of 18, saturation of 97% on room air Labs at the time of admission shows a hemoglobin of 16, WBC of 11,000 with no bands, sodium 148, normal electrolytes and creatinine function and liver function EKG not done in the ER No other imaging was also done in the ER Assessment 1. Acute alcohol withdrawal 2. Alcohol detox 3. History of recurrent DVT status post IVC filter and on and subcutaneous Lovenox 120 mg daily Lovenox(she was on coumadin for 5 monmths but was stopped due to recrrent falls).She aslo has chronic PE. 4. History of COPD not on home oxygen.Has acute prodcuative cough with no O2 req. 5. History of opiate dependence successfully weaned off in May 2016 without Suboxone.She was being considered to be started on methadone for pain control but needs to be refrred to highly monitored setting department. 6. No suicidal or homicidal ideation 7. History of fibromyalgia 8. History of depression Plan Admit the patient to general medicine floor Start the patient on Ativan 2 mg by mouth every 4 IV Ativan as needed Leukocytosis most likely reactive and hemoconcentration we will repeat CBC in the morning Patient already received 1 banana bag and is tolerating by mouth intake well. We will start her on regular diet By mouth multivitamin thiamine and folate acid Psychiatric and social work consult Continue with Lovenox 120 mg therapeutic dose for the DVT and chronic pulmonary embolism After reviewing the patient's previous note, the patient's last transthoracic echocardiogram was performed in 2013 with an ejection fraction of 63%. No comment was made on the right ventricular pressure. The patient would require and transthoracic echocardiogram on outpatient basis to follow-up her right ventricular pressures Continue with gabapentin for neuropathy CXR to loook for underlying pneumonitis.(suspicion is low given low elevated leukocyotis and no fever) DVT prophylaxis as mentioned above Patient is full code As Ranked By This Provider Problem List: 1. History of chronic obstructive pulmonary disease 2. Alcoholism 3. Depression Core Measures/Miscellaneous Acute Coronary Syndrome ACS Diagnosis: No Cerebrovascular Accident CVA/TIA Diagnosis: No Congestive Heart Failure CHF Diagnosis: No Venous Thromboembolism VTE Risk Factors: Acute medical illness, Age > 40 No [facility] VTE prophylaxis d/t: VTE low risk, No contraindications No VTE Pharm Prophylaxis d/t: VTE low risk, No contraindications VTE Diagnosis: No VTE Type: NONE VTE Confirmed by (Test): NONE Severe Sepsis Severe Sepsis Present: No Septic Shock Septic Shock Present: No Miscellaneous Documentation Attending Case Discussed With: DENNIS LONDONO M.D Primary Care Physician: Unkown Patient sees these Specialists Dr Garrett FRANCIS Level of Patient Care: General Medicine DENNIS LONDONO MD 07/12/16 1629: Attending MD Review Statement Attending Statement Attending MD Statement: examined this patient, discuss w/resident/PA/ATTENDING ANESTHESIOLOGIST, agreed w/resident/PA/ATTENDING ANESTHESIOLOGIST, reviewed EMR data (avail), discussed with nursing, discussed with case mgmt, amended to note Attending Assessment/Plan: Patient seen and examined. I reviewed and agree with the resident's notes. She is currently mildly agitated but not in any acute respiratory or painful distress. she remains afebrile and hemodynamically stable here in the emergency room. On examination heart sounds are regular, lungs are clear bilaterally, abdomen is soft and nontender, she has no peripheral edema. Recommendations: -Admit to the inpatient general medical service. -Hydrate with D5 LR at 1 25 mL an hour. Provide with multivitamin supplementation. -Ativan 2 mg orally every 4 hours in addition to Ativan per SRIDHAR. -Notes from her follow-up at [facility] reviewed. She has been weaned off opioids. Recommendations were to consider management and outpatient pain clinic if patient is able to abstain from alcohol use. Patient however reports that she returned to alcohol use due to her pain. UDS was positive for opiates. Would recommend managing the patient's pain avoiding use of opiate therapy. Utilize IV Tylenol and Toradol as needed. -Continue DVT prophylaxis with therapeutic dose of Lovenox which she takes for her history of recurrent venous thromboembolism. -Her hyponatremia and polycythemia are likely secondary to volume depletion and should improve with hydration.
--- NOTE | 2016-07-12 16:15 | RADIOLOGY REPORT ---
EXAMINATION: XR CHEST CLINICAL INFORMATION: Productive cough and leukocytosis. COMPARISON: 05/06/2016 TECHNIQUE: 2 views of the chest were obtained. FINDINGS: Lungs are hyperinflated. On the frontal radiograph, there is a new approximately 1.5 cm, ill-defined opacity projecting over the right anterior fourth rib. It is uncertain whether this is within the chest wall, lung or rib. There is no convincing pulmonary abnormalities at this level on the lateral radiograph. Cardiac silhouette is normal in size. The mediastinal and hilar contours are normal. There is mild biapical pleural thickening. As an old, healed fracture of the right clavicle. IMPRESSION: There is an indeterminate 1.5 cm ill-defined nodular opacity projecting over the right anterior fourth rib -- a new finding compared to 05/06/2016. Given the history of productive cough and leukocytosis, the possibility of pneumonia is considered. Recommend chest radiographic follow-up to assess for resolution.
--- NOTE | 2016-07-12 16:29 | Admission Certification ---
Admission Certification Certification Statement - As attending physician, I certify that at the time of - admission, based on clinical presentation, severity of - symptoms, need for further diagnostic testing and - therapeutic interventions, and risk of adverse outcomes - without in-hospital treatment, in my clinical assessment, - this patient requires an acute hospital stay for a minimum - of two nights or longer. I have also considered psychsocial - factors such as support system, advanced age, financial - issues, cognitive issues, and failed out-patient treatments, - past re-admission history, safety of patient, and lack of - compliance as applicable. Specific rationale supporting this admission is: Patient will be admitted for intravenous fluid hydration, and management of her alcohol withdrawal syndrome.
[2016-07-13] VITALS: BP 128/71
[2016-07-13 06:34] VITALS: BP 138/82
--- NOTE | 2016-07-13 07:16 | PN- Housestaff ---
MADIHA HOYT,MANAS 07/13/16 0716: Subjective Follow-up For: Alcohol detoxification Complaints: right lateral hip pain, chronic Subjective: I followed up and examined the patient today. She is resting in bed, complaining of right lateral hip pain, which is chronic and denies any fall or injuries in the past, and is moving her hip and right lower limb without any difficulty. Her vitals overnight has been stable, no overnight issues otherwise. Her CIWA scores overnight has been high and she has received multiple doses of Ativan in the past 24 hours. Review of Systems Constitutional: Reports: see HPI. Objective Last 24 Hrs of Vital Signs/I&O Vital Signs Date Time Temp Pulse Resp B/P B/P Pulse O2 O2 Flow FiO2 Mean Ox Delivery Rate 07/13 1600 98.1 99 20 150/100 07/13 1541 98.1 99 20 156/100 96 Room Air 07/13 0634 97.4 74 22 138/82 94 Room Air 07/13 0000 98.0 80 18 128/71 07/12 2334 98.0 80 18 128/71 96 Room Air Intake & Output 07/13 1600 07/13 0800 07/13 0000 Intake Total 400 400 615 Output Total Balance 400 400 615 Intake, IV 0 375 Intake, Oral 400 400 240 Patient 77.111 kg Weight Weight Reported by Patient Measurement Method Physical Exam General Appearance: Alert, Oriented X3, Cooperative, Mild Distress, hip pain, anxious Other Physical Findings: Skin No Rashes, No Breakdown Skin Temp/Moisture Exam: Warm/Dry Sepsis Skin Exam (color): Normal for Ethnicity HEENT Atraumatic, PERRLA Neck Supple, No JVD Lymphatic Axillary nl, Cervical nl Cardiovascular Normal S1, Normal S2 Lungs Normal Air Movement, bilateral decreased airway entry Neurology patient is anxious, but has a grossly normal neurological examination Psychiatry anxious, coherent, denies suicidal ideation Current Medications: Current Medications Sig/Sharon Start time Last Medication Dose Route Stop Time Status Admin Acetaminophen 1,000 MG Q6P PRN 07/12 1000 AC 07/13 IV 0405 Budesonide/ 2 PUF BID 07/12 1000 AC Formoterol Fumarate INH Dextrose/Lactated 1,000 ML Q8H 07/12 1900 DC 07/12 Ringer's IV 07/13 0259 1942 Duloxetine HCl 60 MG DAILY 07/13 1000 AC 07/13 PO 0932 Enoxaparin Sodium 120 MG DAILY 07/12 1047 AC 07/13 SC 0933 Gabapentin 600 MG Q8 07/11 2208 AC 07/13 PO 1351 Ketorolac 30 MG .STK-MED ONE 07/13 0638 DC Tromethamine IM 07/13 0639 Ketorolac 30 MG Q6P PRN 07/12 1130 AC 07/13 Tromethamine IV 1316 Lidocaine 1 PAT DAILY 07/13 1000 AC 07/13 EXT 0833 Lorazepam 2 MG Q4 07/12 1400 AC 07/13 PO 1744 Lorazepam 0 Q1P PRN 07/12 1000 AC 07/13 IV 2021 Mirtazapine 15 MG AT BEDTIME 07/11 2215 AC 07/11 PO 2225 Multivitamins 1 TAB DAILY 07/13 1000 AC 07/13 Therapeutic PO 0932 Nicotine 14 MG DAILY 07/13 1007 AC 07/13 TOP 1133 Thiamine HCl 100 MG DAILY 07/13 1000 AC 07/13 PO 0932 Tiotropium [place] 1 PUF DAILY 07/12 1000 AC 07/13 INH 0933 Last 24 Hrs of Lab/Wm Results Last 24 Hrs of Labs/Mics: Laboratory Tests 07/13/16 0736: Anion Gap 7, Estimated GFR > 60, BUN/Creatinine Ratio 22.0, Ammonia 11, CBC w Diff NO MAN DIFF REQ, RBC 4.77, MCV 87.1, MCH 29.0, RDW 18.3 H, MPV 8.2, Gran % 44.8, Lymphocytes % 39.7, Monocytes % 12.6 H, Eosinophils % 2.4, Basophils % 0.5, Absolute Granulocytes 1.9, Absolute Lymphocytes 1.7, Absolute Monocytes 0.5 , Absolute Eosinophils 0.1, Absolute Basophils 0, PUBS MCHC 33.3 Assessment/Plan Assessment: Ms Castanon is a 60 yo F current smoker, with h/o alcohol dependence with multiple failed attempts at detox(last one being in April 2016) withdrawal seizures, Hep B and C (no treatment indicated), hemochromatosis ,homozygous HFE H63D mutation, depression, HTN, COPD, psoriatic arthritis, chronic opiate dependence, fibromyalgia, b/l DVT s/p IVC on Lovenox, deep venous thrombosis, heterozygous Factor V Leiden, who came in voluntarily requesting alcohol detox. Vitals at the time of admission showed Blood pressure of 141/80, pulse rate of 58, respiration rate of 18, saturation of 97% on room air. Labs at the time of admission shows a hemoglobin of 16, WBC of 11,000 with no bands, sodium 148, normal electrolytes and creatinine function and liver function. EKG not done in the ER. No other imaging was also done in the ER. Assessment 1. Acute alcohol withdrawal 2. Alcohol detox 3. History of recurrent DVT status post IVC filter and on and subcutaneous Lovenox 120 mg daily Lovenox(she was on coumadin for 5 monmths but was stopped due to recrrent falls). She aslo has chronic PE. 4. History of COPD not on home oxygen.Has acute prodcuative cough with no O2 req. 5. History of opiate dependence successfully weaned off in May 2016 without Suboxone. She was being considered to be started on methadone for pain control but needs to be referred to highly monitored setting department. Planning by PCP per the patient. 6. No suicidal or homicidal ideation 7. History of fibromyalgia 8. History of depression Plan -Continue to monitor the patient in general medicine floor -Continue Ativan 2 mg by mouth every 4 hours and continue CIWA protocol -Initial leukocytosis is likely to be reactive and due to hemoconcentration. Has come to 4.3 this AM. -Patient already received 1 banana bag and is tolerating by mouth intake well. Continue regular diet. -By mouth multivitamin thiamine and folate acid -Psychiatric and social work consult -Continue with Lovenox 120 mg therapeutic dose for the DVT and chronic pulmonary embolism -After reviewing the patient's previous note, the patient's last transthoracic echocardiogram was performed in 2013 with an ejection fraction of 63%. No comment was made on the right ventricular pressure. The patient would require and transthoracic echocardiogram on outpatient basis to follow-up her right ventricular pressures -Continue with gabapentin for neuropathy. -Per patient, she is to follow-up with her primary care physician for pain management with Suboxone or methadone program after discharge. We decided together not to go for opiate medications while inpatient or upon discharge. Her right-sided lateral hip pain seemed to be musculoskeletal and was given a topical Lidoderm patch to take the edge off of the pain. Will reassess. -CXR done yesterday showed: There is an indeterminate 1.5 cm ill-defined nodular opacity projecting over the right anterior fourth rib -- a new finding compared to 05/06/2016. Given the history of productive cough and leukocytosis, the possibility of pneumonia is considered. Recommend chest radiographic follow-up to assess for resolution. -Patient needs follow-up of pulmonary nodule as mentioned above even after discharge. -DVT prophylaxis as mentioned above -Patient is full code Problem List: 1. ALCOHOL WITHDRAWAL 2. Alcohol abuse 3. Anxiety Pain Ratin Pain Location: right hip, laterally Pain Goal: Pain 4 or less Pain Plan: non opiates analgesics Tomorrow's Labs & Rationales: BEP, to replete jose LONDONO MD,[facility] 07/13/16 1421: Attending MD Review Statement Attending Statement Attending MD Statement: examined this patient, discuss w/resident/PA/FULL ROLL INSPECTOR, agreed w/resident/PA/FULL ROLL INSPECTOR, reviewed EMR data (avail), discussed with nursing, discussed with case mgmt, amended to note Attending Assessment/Plan: Patient seen and examined. Mildly agitated and anxious. Complains of low back pain since that this is chronic for which she was on a fentanyl patch before be weaned off as an outpatient. I discussed with the patient to attempt trial of non-opioid analgesia for pain control. She is currently in agreement with this plan. I CIWA continues to be elevated. She required 10 mg of IV Ativan overnight. Continue CIWA protocol. Ensure patient receives medications while she is awake.
[2016-07-13 08:04] LABS: ABSOLUTE BASOPHIL COUNT 0 /CUMM (0.0-0.2); ABSOLUTE EOSINOPHIL COUNT 0.1 /CUMM (0.0-0.7); ABSOLUTE LYMPH COUNT 1.7 /CUMM (1.2-3.4); ABSOLUTE MONOCYTE COUNT 0.5 /CUMM (0.10-0.60)
[2016-07-13 08:22] LABS: ABSOLUTE GRANULOCYTE CT 1.9 /CUMM (1.4-6.5); BASOPHIL % 0.5 % (0.0-2.0); EOSINOPHIL % 2.4 % (0-5); GRANULOCYTE % 44.8 % (42.2-75.2); MEAN CORPUSCULAR HGB CONC 33.3 G/DL (33.0-37.0); MEAN CORPUSCULAR VOLUME 87.1 FL (81.0-99.0); MEAN PLATELET VOLUME 8.2 FL (7.4-10.4); PLATELET COUNT 143 /CUMM (130-400); RBC DISTRIBUTION WIDTH 18.3 % (11.5-14.5); RED BLOOD CELL CT 4.77 /CUMM (4.20-5.40)
[2016-07-13 08:23] LABS: HEMATOCRIT 41.5 % (37-47); WHITE BLOOD CELL COUNT 4.3 /CUMM (4.8-10.8)
[2016-07-13 15:41] VITALS: BP 156/100
[2016-07-13 16:00] VITALS: BP 150/100
[2016-07-13 21:59] VITALS: BP 112/90
[2016-07-14 06:56] VITALS: BP 118/80
--- NOTE | 2016-07-14 07:06 | PN- Housestaff ---
MADIHA HOYT,MANAS 07/14/16 0706: Subjective Follow-up For: Alcohol detoxification Complaints: back pain, thigh pain, leg pain, skin pain Subjective: I followed up and examined the patient today. She is resting in bed, appears mildly anxious, complaining that her pain is not totally controlled, but agrees to stay off opiates at this time. Her vitals have been stable, no overnight issues otherwise. Her CIWA scores overnight has ranged from 0-10, mostly for anxiety, nausea/ vomiting, headache. Over 24 hours she has received 12 mg of oral Ativan, and 5 mg of IV Ativan, she is on 2 mg oral Ativan every 4 hours and IV Ativan per CIWA protocol. Review of Systems Constitutional: Reports: see HPI. Objective Last 24 Hrs of Vital Signs/I&O Vital Signs Date Time Temp Pulse Resp B/P B/P Pulse O2 O2 Flow FiO2 Mean Ox Delivery Rate 07/14 0656 97.9 69 18 118/80 93 Room Air 07/13 2159 98.0 73 20 112/90 98 Room Air 07/13 1600 98.1 99 20 150/100 07/13 1541 98.1 99 20 156/100 96 Room Air Intake & Output 07/14 1600 07/14 0800 07/14 0000 Intake Total 240 600 Output Total Balance 240 600 Intake, IV Intake, Oral 240 600 Output, Urine Physical Exam General Appearance: Alert, Oriented X3, Cooperative, Mild Distress, anxious Other Physical Findings: Skin No Rashes, No Breakdown Skin Temp/Moisture Exam: Warm/Dry Sepsis Skin Exam (color): Normal for Ethnicity HEENT Atraumatic, PERRLA Neck Supple, No JVD Lymphatic Axillary nl, Cervical nl Cardiovascular Normal S1, Normal S2 Lungs Normal Air Movement, bilateral decreased airway entry Neurology patient is anxious, but has a grossly normal neurological examination Psychiatry anxious, coherent, denies suicidal ideation Current Medications: Current Medications Sig/Sharon Start time Last Medication Dose Route Stop Time Status Admin Acetaminophen 1,000 MG Q6P PRN 07/12 1000 AC 07/13 IV 0405 Budesonide/ 2 PUF BID 07/12 1000 AC Formoterol Fumarate INH Duloxetine HCl 60 MG DAILY 07/13 1000 AC 07/14 PO 1025 Enoxaparin Sodium 120 MG DAILY 07/12 1047 AC 07/14 SC 1026 Gabapentin 600 MG Q8 05/14 2208 AC 07/14 PO 0549 Ketorolac 30 MG .STK-MED ONE 07/13 2132 DC Tromethamine IM 07/13 2133 Ketorolac 30 MG .STK-MED ONE 07/13 1316 DC Tromethamine IM 07/13 1317 Ketorolac 30 MG Q6P PRN 07/12 1130 AC 07/13 Tromethamine IV 2132 Lidocaine 1 PAT DAILY 07/13 1000 AC 07/14 EXT 1025 Lorazepam 2 MG Q4 07/12 1400 AC 07/14 PO 1026 Lorazepam 0 Q1P PRN 07/12 1000 AC 07/14 IV 0922 Mirtazapine 15 MG AT BEDTIME 07/11 2215 AC 07/13 PO 2138 Multivitamins 1 TAB DAILY 07/13 1000 AC 07/14 Therapeutic PO 1025 Nicotine 14 MG DAILY 07/13 1007 AC 07/14 TOP 1025 Thiamine HCl 100 MG DAILY 07/13 1000 AC 07/14 PO 1025 Tiotropium [place] 1 PUF DAILY 07/12 1000 AC 07/14 INH 1023 Last 24 Hrs of Lab/Wm Results Last 24 Hrs of Labs/Mics: Laboratory Tests 07/14/16 0645: Anion Gap 8, Estimated GFR > 60, BUN/Creatinine Ratio 23.3 Assessment/Plan Assessment: Ms Castanon is a 60 yo F current smoker, with h/o alcohol dependence with multiple failed attempts at detox(last one being in April 2016) withdrawal seizures, Hep B and C (no treatment indicated), hemochromatosis ,homozygous HFE H63D mutation, depression, HTN, COPD, psoriatic arthritis, chronic opiate dependence, fibromyalgia, b/l DVT s/p IVC on Lovenox, deep venous thrombosis, heterozygous Factor V Leiden, who came in voluntarily requesting alcohol detox. Vitals at the time of admission showed Blood pressure of 141/80, pulse rate of 58, respiration rate of 18, saturation of 97% on room air. Labs at the time of admission shows a hemoglobin of 16, WBC of 11,000 with no bands, sodium 148, normal electrolytes and creatinine function and liver function. EKG not done in the ER. No other imaging was also done in the ER. Assessment 1. Acute alcohol withdrawal 2. Alcohol detox 3. History of recurrent DVT status post IVC filter and on and subcutaneous Lovenox 120 mg daily Lovenox(she was on coumadin for 5 monmths but was stopped due to recrrent falls). She aslo has chronic PE. 4. History of COPD not on home oxygen.Has acute prodcuative cough with no O2 req. 5. History of opiate dependence successfully weaned off in May 2016 without Suboxone. She was being considered to be started on methadone for pain control but needs to be referred to highly monitored setting department. Planning by PCP per the patient. 6. No suicidal or homicidal ideation 7. History of fibromyalgia 8. History of depression Plan -Continue to monitor the patient in general medicine floor -Ativan 2 mg by mouth every 4 hours has been changed to 1.5mg PO q4hr today, as her CIWA scores have improved although slightly today. Continue CIWA protocol -Initial leukocytosis is likely to be reactive and due to hemoconcentration. Has come to 4.3 (yesterday). -Patient already received 1 banana bag and is tolerating by mouth intake well. Continue regular diet. Continue multivitamin, thiamine, and folate acid PO. -Psychiatric and social work consult -Continue with Lovenox 120 mg therapeutic dose for the DVT and chronic pulmonary embolism -After reviewing the patient's previous note, the patient's last transthoracic echocardiogram was performed in 2013 with an ejection fraction of 63%. No comment was made on the right ventricular pressure. The patient would require and transthoracic echocardiogram on outpatient basis to follow-up her right ventricular pressures -Continue with gabapentin for neuropathy. -For pain, IV Ketorolac has been converted to oral form today. Patient usually stays for 5 days for shorter while on ketorolac. Need to change to other forms after that. -Per patient, she is to follow-up with her primary care physician for pain management with Suboxone or methadone program after discharge. We (patient and the medical team) decided together not to go for opiate medications while inpatient or upon discharge. Her pain seemed to be musculoskeletal and was given a topical Lidoderm patch on 07/13/16. Will review her previous scans to find older history of trauma and pathologies. Will reassess. -CXR done yesterday showed: There is an indeterminate 1.5 cm ill-defined nodular opacity projecting over the right anterior fourth rib -- a new finding compared to 05/06/2016. Given the history of productive cough and leukocytosis, the possibility of pneumonia is considered. Recommend chest radiographic follow-up to assess for resolution. -Patient needs follow-up of pulmonary nodule as mentioned above even after discharge. -DVT prophylaxis as mentioned above -Patient is full code Problem List: 1. ALCOHOL WITHDRAWAL 2. Lung nodule Pain Ratin Pain Location: back pain Pain Goal: Pain 4 or less Pain Plan: warm compress and alternative pain management, on top of non-opiates Tomorrow's Labs & Rationales: - DENNIS LONDONO MD 07/14/16 1216: Attending MD Review Statement Attending Statement Attending MD Statement: examined this patient, discuss w/resident/PA/BAGGAGE AGENT, agreed w/resident/PA/BAGGAGE AGENT, reviewed EMR data (avail), discussed with nursing, discussed with case mgmt, amended to note Attending Assessment/Plan: Patient seen and examined. Alert and oriented 3. Complains of chronic lower extremity and back pain. She reports that she has been referred to the orthopedic service as an outpatient about a year ago. She reports that she had followed up with the pain clinic and that there were recommendations in the past for placement of a nerve stimulator. She reports that the chronically and has been worked up with imaging in the past. She is willing to attempt pain control of will. Analgesic so she can follow up with the pain clinic as an outpatient for enrollment into a Suboxone program. Her CIWA was better yesterday but was elevated this morning. It is improving generally. She still required IV Ativan through yesterday. Recommendations: -Taper Ativan slowly. Decrease dose to 1.5 mg every 4 hours today. -Follow-up with the patient regarding transition into oral pain medications. Toradol can be converted to oral dose. Recommend use of nonpharmacologic modalities as well. -Patient encouraged to ambulate as tolerated.
[2016-07-14 14:11] VITALS: BP 130/80
[2016-07-14 19:00] VITALS: BP 152/104
[2016-07-14 22:13] VITALS: BP 124/90
[2016-07-15 06:21] VITALS: BP 136/70
--- NOTE | 2016-07-15 06:58 | PN- Housestaff ---
MADIHA HOYT,MANAS 07/15/16 0657: Subjective Follow-up For: Alcohol detoxification Complaints: anxiety Subjective: I followed up and examined the patient today. She is resting in bed, appears comfortable, vitals have been stable, doesn't have any complaints currently, no overnight issues. Her CIWA scores overnight has decreased from 0-16, mostly for anxiety, and headache. Upon questioning, she did mention that she had a baseline anxiety disorder. She has received 10 mg of oral Ativan and 7 mg of IV Ativan for the past 24 hours. Symptoms of alcohol withdrawal otherwise doesn't seem to predominate. This could be mixed with underlying anxiety as well. Review of Systems Constitutional: Reports: see HPI. Objective Last 24 Hrs of Vital Signs/I&O Vital Signs Date Time Temp Pulse Resp B/P B/P Pulse O2 O2 Flow FiO2 Mean Ox Delivery Rate 07/15 06 97.8 80 22 136/70 95 Room Air 07/14 2213 98.5 78 18 124/90 95 07/14 1900 88 24 152/104 Intake & Output 07/15 1600 07/15 0800 07/15 0000 Intake Total 600 120 600 Output Total Balance 600 120 600 Intake, IV 0 Intake, Oral 600 120 600 Physical Exam General Appearance: Alert, Oriented X3, Cooperative, No Acute Distress Other Physical Findings: Skin No Rashes, No Breakdown Skin Temp/Moisture Exam: Warm/Dry Sepsis Skin Exam (color): Normal for Ethnicity HEENT Atraumatic, PERRLA Neck Supple, No JVD Lymphatic Axillary nl, Cervical nl Cardiovascular Normal S1, Normal S2 Lungs Normal Air Movement, bilateral decreased airway entry Neurology patient is anxious, but has a grossly normal neurological examination Psychiatry anxious, coherent, denies suicidal ideation Current Medications: Current Medications Sig/Sharon Start time Last Medication Dose Route Stop Time Status Admin Acetaminophen 1,000 MG Q6P PRN 07/12 1000 AC 07/13 IV 0405 Budesonide/ 2 PUF BID 07/12 1000 AC Formoterol Fumarate INH Duloxetine HCl 60 MG DAILY 07/13 1000 AC 07/15 PO 0950 Enoxaparin Sodium 120 MG DAILY 07/12 1047 AC 07/15 SC 0950 Gabapentin 600 MG Q8 07/11 2208 AC 07/15 PO 1306 Ketorolac 30 MG .STK-MED ONE 07/14 1857 DC Tromethamine IM 05/17 1859 Ketorolac 10 MG Q6P PRN 07/14 1615 AC 07/15 Tromethamine PO 07/16 1614 0608 Ketorolac 30 MG Q6P PRN 07/12 1130 DC 07/13 Tromethamine IV 2132 Lidocaine 1 PAT DAILY 07/13 1000 AC 07/14 EXT 1025 Loperamide HCl 2 MG Q6P PRN 07/14 1730 AC PO Lorazepam 1.5 MG Q8 07/15 1400 AC 07/15 PO 1306 Lorazepam 1.5 MG Q4 07/14 1800 DC 07/15 PO 0609 Lorazepam 2 MG Q4 07/12 1400 DC 07/14 PO 1412 Lorazepam 0 Q1P PRN 07/12 1000 AC 07/14 IV 2141 Mirtazapine 15 MG AT BEDTIME 07/11 2215 AC 07/14 PO 2118 Multivitamins 1 TAB DAILY 07/13 1000 AC 07/15 Therapeutic PO 0950 Nicotine 14 MG DAILY 07/13 1007 AC 07/15 TOP 0949 Thiamine HCl 100 MG DAILY 07/13 1000 AC 07/15 PO 0950 Tiotropium [place] 1 PUF DAILY 07/12 1000 AC 07/15 INH 0949 Assessment/Plan Assessment: Ms Castanon is a 60 yo F current smoker, with h/o alcohol dependence with multiple failed attempts at detox(last one being in April 2016) withdrawal seizures, Hep B and C (no treatment indicated), hemochromatosis ,homozygous HFE H63D mutation, depression, HTN, COPD, psoriatic arthritis, chronic opiate dependence, fibromyalgia, b/l DVT s/p IVC on Lovenox, deep venous thrombosis, heterozygous Factor V Leiden, who came in voluntarily requesting alcohol detox. Vitals at the time of admission showed Blood pressure of 141/80, pulse rate of 58, respiration rate of 18, saturation of 97% on room air. Labs at the time of admission shows a hemoglobin of 16, WBC of 11,000 with no bands, sodium 148, normal electrolytes and creatinine function and liver function. EKG not done in the ER. No other imaging was also done in the ER. Assessment 1. Acute alcohol withdrawal 2. Alcohol detox 3. History of recurrent DVT status post IVC filter and on and subcutaneous Lovenox 120 mg daily Lovenox (she was on coumadin for 5 monmths but was stopped due to recrrent falls). She aslo has chronic PE. 4. History of COPD not on home oxygen.Has acute prodcuative cough with no O2 req. 5. History of opiate dependence successfully weaned off in May 2016 without Suboxone. She was being considered to be started on methadone for pain control but needs to be referred to highly monitored setting department. Planning by PCP per the patient. 6. No suicidal or homicidal ideation 7. History of fibromyalgia 8. History of depression Plan -Continue to monitor the patient in general medicine floor -Ativan 1.5 mg by mouth every 4 hours has been changed to 1.5 mg PO q8hr today, as her CIWA scores have improved today. Continue CIWA protocol -Cause of persistent anxiety can also be due to her baseline anxiety disorder. Awaiting psychiatric consultation for the same. -Initial leukocytosis is likely to be reactive and due to hemoconcentration. Has come to 4.3 latest. -Patient already received 1 banana bag and is tolerating by mouth intake well. Continue regular diet. Continue multivitamin, thiamine, and folate acid PO. -Psychiatric and social work consult following. -Continue with Lovenox 120 mg therapeutic dose for the DVT and chronic pulmonary embolism -After reviewing the patient's previous note, the patient's last transthoracic echocardiogram was performed in 2013 with an ejection fraction of 63%. No comment was made on the right ventricular pressure. The patient would require and transthoracic echocardiogram on outpatient basis to follow-up her right ventricular pressures -Continue with gabapentin for neuropathy. -For pain, IV Ketorolac has been converted to oral form 07/14/16. Patient usually stays for 5 days while on ketorolac. Need to change to other forms after that. -Per patient, she is to follow-up with her primary care physician for pain management with Suboxone or methadone program after discharge. We (patient and the medical team) decided together not to go for opiate medications while inpatient or upon discharge. Her pain seems to be musculoskeletal and was given a topical Lidoderm patch on 07/13/16. Will review her previous scans to find older history of trauma and pathologies. Will reassess. -CXR done yesterday showed: There is an indeterminate 1.5 cm ill-defined nodular opacity projecting over the right anterior fourth rib -- a new finding compared to 05/06/2016. Given the history of productive cough and leukocytosis, the possibility of pneumonia is considered. Recommend chest radiographic follow-up to assess for resolution. -Patient needs follow-up of pulmonary nodule as mentioned above even after discharge. -DVT prophylaxis as mentioned above -Patient is full code Problem List: 1. ALCOHOL WITHDRAWAL 2. Anxiety 3. Depression 4. Fibromyalgia 5. Lung nodule Pain Ratin Pain Location: all over when present Pain Goal: Pain 4 or less Pain Plan: prn, using non-opiates Tomorrow's Labs & Rationales: - DENNIS LONDONO MD 07/15/16 1327: Attending MD Review Statement Attending Statement Attending MD Statement: examined this patient, discuss w/resident/PA/CARGO SURVEYOR, agreed w/resident/PA/CARGO SURVEYOR, reviewed EMR data (avail), discussed with nursing, discussed with case mgmt, amended to note Attending Assessment/Plan: Patient seen and examined. Alert and oriented 3. she continues to score however occasional CIWA score particularly for subjective findings such as anxiety. She continues received when necessary Ativan. She shows no objective evidence of withdrawal at this point. She does admit to have an underlying anxiety disorder. She reports trying a number of medications in the past as an outpatient with no success. She is in agreement with having a psychiatric evaluation while in the hospital. She continues to report diffuse pain but admits to use of Toradol and the Lidoderm patch. Recommendations: -Taper down her Ativan to 1.5 mg every 8 hours today. Continue when necessary Ativan as needed. Consult the psychiatric service for management of her anxiety disorder. -Continue current pain regimen. Patient will be discharged on naproxen and she will follow-up with the pain management clinic on discharge.
--- NOTE | 2016-07-15 13:40 | Cons- Psychiatry ---
Psychiatric Consult Date of Consult: 07/15/16 Reason for Consult: Anxiety in the context of ETOH wd Ordered by Dr. Ferrari History of Present Illness: Identifying Info: 60-year-old female presents to [facility] emergency department on 07/01/2016 requesting alcohol detox. She was admitted to medicine due to history fo Sz. CC: "I'm sick" HPI: Patient reports after last discharge in April of this year she stopped taking her disulfiram and began drinking again. She reports she's been drinking up to 2 quarts of vodka daily. She does not identify any precipitating incident. She has been consistently scoring high on this CIWA scale for subjective symptoms of withdrawal primarily anxiety with significant decrease in objective symptoms and vital signs. The patient has multiple previous hospitalizations for alcohol detox at [place] and other [facility]. PMH: Please see the H&P for a complete listing Psoriatic arthritis, fibromyalgia, COPE, withdrawal seizures, hypercholesterolism and history of hepatitis C. Past Psych History: -Outpatient Currently treated at [facility] in [facility] -Inpatient CPS 2010 Family Psych History: Unobtained Substance History Alcohol use disorder Most recently detoxed at [facility] in 04/2016. Several previous at and [facility]. Family Substance History: Unobtained Social: with adult children. Unemployed. Abuse/Trauma: Unobtained Current Home Psychotropic Medications: Disulfiram 250mg Mirtazapine 15 mg Cymbalta 60mg Current Hospital Psychotropic Medications: Med Duloxetine HCl 60 MG PO DAILY 07/13/16 1000 Gabapentin 600 MG PO Q8 07/11/16 2208 Lorazepam 1.5 MG PO Q8 07/15/16 1400 Mirtazapine 15 MG PO AT BEDTIME 07/11/16 2215 Allergies: Coded Allergies: Sulfa (Sulfonamide Antibiotics) (Mild, HIVES 07/03/15) amitriptyline (HIVES 07/03/15) Current Medications: Current Medications Sig/Sharon Start time Last Medication Dose Route Stop Time Status Admin Acetaminophen 1,000 MG Q6P PRN 07/12 1000 AC 07/13 IV 0405 Budesonide/ 2 PUF BID 07/12 1000 AC Formoterol Fumarate INH Duloxetine HCl 60 MG DAILY 07/13 1000 AC 07/15 PO 0950 Enoxaparin Sodium 120 MG DAILY 07/12 1047 AC 07/15 SC 0950 Gabapentin 600 MG Q8 07/11 2208 AC 07/15 PO 1306 Ketorolac 30 MG .STK-MED ONE 07/14 1858 DC Tromethamine IM 07/14 185 Ketorolac 10 MG Q6P PRN 07/14 1615 AC 07/15 Tromethamine PO 07/16 1614 0608 Ketorolac 30 MG Q6P PRN 07/12 1130 DC 07/13 Tromethamine IV 2132 Lidocaine 1 PAT DAILY 07/13 1000 AC 07/14 EXT 1025 Loperamide HCl 2 MG Q6P PRN 07/14 1730 AC PO Lorazepam 1.5 MG Q8 07/15 1400 AC 07/15 PO 1306 Lorazepam 1.5 MG Q4 07/14 1800 DC 07/15 PO 0609 Lorazepam 2 MG Q4 07/12 1400 DC 07/14 PO 1412 Lorazepam 0 Q1P PRN 07/12 1000 AC 07/14 IV 2141 Mirtazapine 15 MG AT BEDTIME 07/11 2215 AC 07/14 PO 2118 Multivitamins 1 TAB DAILY 07/13 1000 AC 07/15 Therapeutic PO 0950 Nicotine 14 MG DAILY 07/13 1007 AC 07/15 TOP 0949 Thiamine HCl 100 MG DAILY 07/13 1000 AC 07/15 PO 0950 Tiotropium [place] 1 PUF DAILY 07/12 1000 AC 07/15 INH 0949 Past History Past Medical History Neurological: FIBROMYALGIA seizure in the setting of alcohol withdrawal EENT: NONE Cardiovascular: NONE Respiratory: COPD, emphysema Gastrointestinal: GERD, POLYPS IN COLON Hepatic: hepatitis B, hepatitis C Renal: 2 CYSTS IN L KIDNEY Musculoskeletal: osteoarthritis, psoariatic arthritis, OSTEOPENIA Psychiatric: alcohol dependence, anxiety, depression, dysthymic disorder Endocrine: THYROID NODULE Blood Disorders: HEMOCHROMATOSIS Cancer(s): NONE RECORDING STUDIO INTERN/Reproductive: BREAST NODULES (R BREAST 1 NODULE PRECANCEROUS) Past Surgical History Surgical History: IVC filter left foot/toe surgery 10/2014 HYSTERECTOMY LUMPECTOMY TO BOTH BREAST Psychosocial History Strengths/Capabilities: seeking help Physical Limitations (Interventions): recent leg injury Psychiatric Treatment History Psych Treatment Psychiatric Treatment Yes (as above) Diagnosis: ETOH Dependence 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 Hospital garb. Somewhat unkempt, missing several teath. Some psychomotor aggitation noted with pt tapping foot. Orientation: x4 Sensorium: Awake and alert Eye contact: Appropriate Affect: Somewhat constricted Mood: "Anxious" Depression: Denies Anxiety: Endorses Thought Content: - Denies SI/HI, AH/VH, PI. States and also believes they will not kill themselves. - Endorses TH - Denies Hopeless/Helpless Thoughts Thought Process: Linear Associations: Appropriate Speech: Someat dysarthric, normal tone and rate Judgment: Fair Insight: Fair Cognition: Memory: Grossly intact Attention/Cocentration: Grossly intact Fund of Knowledge: Adequate Abstractions:Did not assess MMSE: Did not assess Brief ROS Gait: Unobserved Sleep: Reports poor Appetite: Adequate Energy: High IADLs/ADLs: Independent Patient reports she would like to go back to her outpatient treaters and resumed taking disulfiram. Lab Results: Laboratory Tests 07/14/16 0645: Anion Gap 8, Estimated GFR > 60, BUN/Creatinine Ratio 23.3 07/13/16 0736: Anion Gap 7, Estimated GFR > 60, BUN/Creatinine Ratio 22.0, Ammonia 11, CBC w Diff NO MAN DIFF REQ, RBC 4.77, MCV 87.1, MCH 29.0, RDW 18.3 H, MPV 8.2, Gran % 44.8, Lymphocytes % 39.7, Monocytes % 12.6 H, Eosinophils % 2.4, Basophils % 0.5, Absolute Granulocytes 1.9, Absolute Lymphocytes 1.7, Absolute Monocytes 0.5 , Absolute Eosinophils 0.1, Absolute Basophils 0, PUBS MCHC 33.3 07/12/16 1824: Ammonia Cancelled Diffential Diagnosis: Alcohol use disorder By history major depressive disorder By history unspecified personality disorder with borderline traits Rule out unspecified mood disorder Impression: 60-year-old female presents in the context of alcohol withdrawal with increasing anxiety. She would benefit from continued careful monitoring using CIWA scale and appropriate medication. Additionally she would benefit and increasing frequency of her gabapentin. Provisional Treatment Plan: 1. Continue CIWA and medicate appropriately with plan to reduce benzodiazepines by 20% daily. 2. Continue vitamins 3. Please increase frequency of gabapentin for 600mg QID. 4. Patient to [facility] up [facility] [place] post discharge. Thank you for including psychiatry in this case we will only continue to follow on an as-needed basis.
[2016-07-15 14:36] VITALS: BP 160/92
[2016-07-15 22:40] VITALS: BP 112/68
[2016-07-16 07:45] VITALS: BP 156/88
--- NOTE | 2016-07-16 10:36 | Discharge Summary ---
Visit Information Visit Dates Admission Date: 07/12/16 Discharge Date: 07/16/16 Hospital Course Course Attending Physician: DENNIS LONDONO M.D Primary Care Physician: UNKNOWN Hospital Course: Ms Castanon is a 60 yo F current smoker, with h/o alcohol dependence with multiple failed attempts at detox(last one being in April 2016) withdrawal seizures, Hep B and C (no treatment indicated), hemochromatosis ,homozygous HFE H63D mutation, depression, HTN, COPD, psoriatic arthritis, chronic opiate dependence, fibromyalgia, b/l DVT s/p IVC on Lovenox, deep venous thrombosis, heterozygous Factor V Leiden deficiency, who came in voluntarily requesting alcohol detox. Vitals at the time of admission showed Blood pressure of 141/80, pulse rate of 58, respiration rate of 18, saturation of 97% on room air. Labs at the time of admission shows a hemoglobin of 16, WBC of 11,000 with no bands, sodium 148, normal electrolytes and creatinine function and liver function. EKG not done in the ER. No other imaging was also done in the ER. She was managed in the general medical floor for the following issues: 1. Acute alcohol withdrawal. She was being managed per [facility] protocol, and as her scores lowered, her main complaints were anxiety and headache. She seems to have an underlying history of anxiety as well, for which Psychiatry service was consulted. She did not finish her alcohol detoxification therapy, and left AGAINST MEDICAL ADVICE. She has the capacity to understand her condition and make decisions, including the fact that alcohol withdrawal can sometimes be life -threatening. All this was explained to her, and the patient signed AMA papers and left the hospital by herself. 2. History of recurrent DVT status post IVC filter and on and subcutaneous Lovenox 120 mg daily Lovenox (she was on coumadin for 5 months which was stopped due to recurrent falls). She aslo has chronic PE. 3. History of COPD not on home oxygen, not in exacerbation. 4. History of opiate dependence and chronic pain syndrome, fibromyalgia, successfully weaned off in May 2016 without Suboxone. She was being considered to be started on Suboxone/Methadone for pain control. She needs to be referred to highly monitored setting department. Planning by PCP per the patient. 5. No suicidal or homicidal ideation - Initial leukocytosis, likely to be reactive and/or due to hemoconcentration. - Initially hypernatremic at 148, was resolveing later to 142. - She needs to multivitamins, thiamine, and folate acid upon discharge. - Patient's last transthoracic echocardiogram was performed in 2013 with an ejection fraction of 63%. No comment was made on the right ventricular pressure. The patient requires a transthoracic echocardiogram on outpatient basis to follow-up her right ventricular pressures. - Patient was being managed without opiates during her stay here. - Per patient, she is to follow-up with her primary care physician for pain management with Suboxone or methadone program after discharge. - CXR done in this admission showed: There is an indeterminate 1.5 cm ill- defined nodular opacity projecting over the right anterior fourth rib - a new finding compared to 05/06/2016. Given the history of COPD, possibility of pneumonia was considered initially, but the patient did not have any worsening, and was off antibiotics. Recommend chest radiographic follow-up to assess for resolution. She needs follow-up of pulmonary nodule as mentioned above even after discharge. Allergies: Coded Allergies: Sulfa (Sulfonamide Antibiotics) (Mild, HIVES 07/03/15) amitriptyline (HIVES 07/03/15) Disposition Summary Disposition Principal Diagnosis: Alcohol withdrawal, came in voluntarily for detoxification Anxiety (diagnosed in this admission) Additional Diagnosis: alcohol dependence with multiple failed attempts at detox (last one being in April 2016 prior to this), alcohol withdrawal seizures, Hep B and C (no treatment indicated), hemochromatosis, homozygous HFe H63D mutation, depression, HTN, COPD, psoriatic arthritis, chronic opiate dependence, fibromyalgia, b/l DVT s/p IVC on Lovenox, deep venous thrombosis, heterozygous Factor V Leiden deficiency, ANXIETY (DIAGNOSED IN THIS ADMISSION). Discharge Disposition: left against medical adv Discharge Instructions General Discharge Information Code Status: Full Code Patient's Diet: Heart healthy. AVOID ALCOHOL. Patient's Activity: As tolerated. Follow-Up Instructions/Appts: Please visit your PCP as soon as possible, as you have left medical advice and have not completed alcohol detoxification therapy completely. Please try to find a pain management clinic as soon as possible to manage chronic pain. You cannot be on opiates if you plan to go for Suboxone therapy for pain management. Please return to emergency if symptoms worsens. AVOID ALCOHOL AT ALL COSTS. You were counseled extensively by the medical team, social insurance administrator, and psuchiatry service as an inpatient, and a decision was reached by you to avaoid alcohol, even for pain. Copies To: DENNIS LONDONO M.D Attending MD Review Statement Documenting Attending: DENNIS LONDONO M.D Other Findings: I have reviewed the discharge summary. As tolerated. Follow-Up Instructions/Appts: Please visit your PCP as soon as possible, as you have left medical advice and have not completed alcohol detoxification therapy completely. Please try to find a pain management clinic as soon as possible to manage chronic pain. You cannot be on opiates if you plan to go for Suboxone therapy for pain management. Please return to emergency if symptoms worsens. AVOID ALCOHOL AT ALL COSTS. You were counseled extensively by the medical team, social insurance administrator, and psuchiatry service as an inpatient, and a decision was reached by you to avaoid alcohol, even for pain.
--- NOTE | 2016-07-16 10:38 | PN- Housestaff ---
MADIHA HOYT,MANAS 07/16/16 1038: Subjective Follow-up For: Alcohol detox Complaints: wants to leave today, understands AGAINST MEDICAL ADVICE Subjective: I followed up the patient today. She was resting by the side of her bed, and mentioned that she wants to leave for home. She was explained about her condition that her treatment is ongoing, and is not complete yet. She understands that during alcohol detoxification, there is a chance that she might suffer from seizure, delirium tremens, which can sometimes be life-threatening. She has the capacity to understand, and decide on her treatment options including no treatment or stopping treatment as of now. She wants to leave AMA, and after discussion with the resident and attending, she signed the paperwork for leaving AGAINST MEDICAL ADVICE. Review of Systems Constitutional: Reports: no symptoms. Objective Last 24 Hrs of Vital Signs/I&O Vital Signs Date Time Temp Pulse Resp B/P B/P Pulse O2 O2 Flow FiO2 Mean Ox Delivery Rate 07/16 0745 98.9 76 18 156/88 91 Room Air 07/15 2240 98.6 73 19 112/68 95 Room Air Intake & Output 07/16 1600 07/16 0800 07/16 0000 Intake Total 480 800 Output Total Balance 480 800 Intake, Oral 480 800 Physical Exam General Appearance: Alert, Oriented X3, Cooperative, No Acute Distress Other Physical Findings: Skin No Rashes, No Breakdown Skin Temp/Moisture Exam: Warm/Dry Sepsis Skin Exam (color): Normal for Ethnicity HEENT Atraumatic, PERRLA Neck Supple, No JVD Lymphatic Axillary nl, Cervical nl Cardiovascular Normal S1, Normal S2 Lungs Normal Air Movement, bilateral decreased airway entry Neurology patient is anxious, but has a grossly normal neurological examination Psychiatry anxious, coherent, denies suicidal ideation Current Medications: Current Medications Sig/Sharon Start time Last Medication Dose Route Stop Time Status Admin Acetaminophen 1,000 MG Q6P PRN 07/12 1000 DCD 07/13 IV 0405 Budesonide/ 2 PUF BID 07/12 1000 DCD Formoterol Fumarate INH Duloxetine HCl 60 MG DAILY 07/13 1000 DCD 07/16 PO 0903 Enoxaparin Sodium 120 MG DAILY 07/12 1047 DCD 07/16 SC 0859 Gabapentin 600 MG Q8 07/11 2208 DCD 07/16 PO 0506 Ketorolac 10 MG Q6P PRN 07/14 1615 DCD 07/16 Tromethamine PO 07/16 1614 0506 Lidocaine 1 PAT DAILY 07/13 1000 DCD 07/14 EXT 1025 Loperamide HCl 2 MG Q6P PRN 07/14 1730 DCD PO Lorazepam 1.5 MG Q8 07/15 1400 DCD 07/16 PO 0506 Lorazepam 0 Q1P PRN 07/12 1000 DCD 07/15 IV 1525 Mirtazapine 15 MG AT BEDTIME 07/11 2215 DCD 07/15 PO 2124 Multivitamins 1 TAB DAILY 07/13 1000 DCD 07/16 Therapeutic PO 0903 Nicotine 14 MG DAILY 07/13 1007 DCD 07/16 TOP 0857 Thiamine HCl 100 MG DAILY 07/13 1000 DCD 07/16 PO 0903 Tiotropium [place] 1 PUF DAILY 07/12 1000 DCD 07/16 INH 0900 Assessment/Plan Assessment: Ms Csatanon is a 60 yo F current smoker, with h/o alcohol dependence with multiple failed attempts at detox(last one being in April 2016) withdrawal seizures, Hep B and C (no treatment indicated), hemochromatosis ,homozygous HFE H63D mutation, depression, HTN, COPD, psoriatic arthritis, chronic opiate dependence, fibromyalgia, b/l DVT s/p IVC on Lovenox, deep venous thrombosis, heterozygous Factor V Leiden, who came in voluntarily requesting alcohol detox. Vitals at the time of admission showed Blood pressure of 141/80, pulse rate of 58, respiration rate of 18, saturation of 97% on room air. Labs at the time of admission shows a hemoglobin of 16, WBC of 11,000 with no bands, sodium 148, normal electrolytes and creatinine function and liver function. EKG not done in the ER. No other imaging was also done in the ER. Assessment 1. Acute alcohol withdrawal, scoring low on CIWA 2. Alcohol detox 3. History of recurrent DVT status post IVC filter and on and subcutaneous Lovenox 120 mg daily Lovenox (she was on coumadin for 5 monmths but was stopped due to recrrent falls). She aslo has chronic PE. 4. History of COPD not on home oxygen.Has acute prodcuative cough with no O2 req. 5. History of opiate dependence successfully weaned off in May 2016 without Suboxone. She was being considered to be started on methadone for pain control but needs to be referred to highly monitored setting department. Planning by PCP per the patient. 6. No suicidal or homicidal ideation 7. History of fibromyalgia 8. History of depression Patient left AGAINST MEDICAL ADVICE in the morning, understanding her condition, need to treatment, possible complications of finishing her treatment before time , and the need to follow-up or return to emergency as well. She has the capacity to understand her condition and make decisions, including the fact that alcohol withdrawal can sometimes be life-threatening. All this was explained to her, and the patient signed AMA papers and left the hospital by herself. Plan -Continue to monitor the patient in general medicine floor -She received Ativan 1.5 mg by mouth every 8 hours yesterday, and her CIWA score has remained low except for occasional anxiety/headache . -Psychiatry consultation was placed yesterday for her baseline anxiety disorder, was suggested a later follow-up as an outpatient as well. -Initial leukocytosis is likely to be reactive and due to hemoconcentration. Has come to 4.3 latest. -Patient already received 1 banana bag and is tolerating by mouth intake well. Continue regular diet. Continue multivitamin, thiamine, and folate acid PO. -Psychiatric and social work consult following. -Continue with Lovenox 120 mg therapeutic dose for the DVT and chronic pulmonary embolism -After reviewing the patient's previous note, the patient's last transthoracic echocardiogram was performed in 2013 with an ejection fraction of 63%. No comment was made on the right ventricular pressure. The patient would require and transthoracic echocardiogram on outpatient basis to follow-up her right ventricular pressures -Continue with gabapentin for neuropathy. -For pain, IV Ketorolac has been converted to oral form 07/14/16. Patient usually stays for 5 days while on ketorolac. Need to change to other forms after that. -Per patient, she is to follow-up with her primary care physician for pain management with Suboxone or methadone program after discharge. We (patient and the medical team) decided together not to go for opiate medications while inpatient or upon discharge. Her pain seems to be musculoskeletal and was given a topical Lidoderm patch on 07/13/16. Will review her previous scans to find older history of trauma and pathologies. -CXR done yesterday showed: There is an indeterminate 1.5 cm ill-defined nodular opacity projecting over the right anterior fourth rib -- a new finding compared to 05/06/2016. Given the history of productive cough and leukocytosis, the possibility of pneumonia is considered. Recommend chest radiographic follow-up to assess for resolution. -Patient needs follow-up of pulmonary nodule as mentioned above even after discharge. -DVT prophylaxis as mentioned above -Patient is full code Problem List: 1. ALCOHOL WITHDRAWAL 2. Anxiety 3. Lung nodule Pain Ratin Pain Location: head Pain Goal: Pain 4 or less Pain Plan: prn Tomorrow's Labs & Rationales: - DENNIS LONDONO MD 07/16/16 1134: Attending MD Review Statement Attending Statement Attending MD Statement: examined this patient, discuss w/resident/PA/SUSTAINABLE DESIGN CONSULTANT, agreed w/resident/PA/SUSTAINABLE DESIGN CONSULTANT, reviewed EMR data (avail), discussed with nursing, discussed with case mgmt, amended to note Attending Assessment/Plan: When I arrived at the patient's troponins throughout this morning she was in her street clothes stating she wanted to leave the hospital immediately. She no longer wishes to remain continue her benzodiazepine taper. She was counseled about the risk of prematurly stopping her benzodiazepine taper and the risk of reverting back to alcohol use. She verbalizes understanding and remains insistent on leaving the hospital. She has been afebrile hemodynamically stable. Her CIWA score or has been 0 overnight. She was discharged AGAINST MEDICAL ADVICE. She was advised to follow-up with the IOP program.
== END 2016-07-16 09:34 | disposition left against medical advice (07) | DRG 894 ==
LOC: ERH 11:40 → 2NB 07-12 09:47 → ERHI 07-12 09:47 → ENRESERV 07-12 18:18 → 2NB 07-12 19:30 → ENPENDDIS 07-16 09:28 → 2NB 07-16 09:34
PROVIDERS: Emergency Medicine; Internal Medicine Nephrology; ADMIT Internal Medicine
DX: F10.239 Alcohol dependence with withdrawal, unspecified (principal); D68.51 Activated protein C resistance; E87.0 Hyperosmolality and hypernatremia; L40.50 Arthropathic psoriasis, unspecified; D75.1 Secondary polycythemia; B18.1 Chronic viral hepatitis B without delta-agent; F17.210 Nicotine dependence, cigarettes, uncomplicated; B18.2 Chronic viral hepatitis C; E83.119 Hemochromatosis, unspecified; J44.9 Chronic obstructive pulmonary disease, unspecified; M79.7 Fibromyalgia; Z86.718 Personal history of other venous thrombosis and embolism; K21.9 Gastro-esophageal reflux disease without esophagitis; F32.9 Major depressive disorder, single episode, unspecified; M25.551 Pain in right hip; R91.1 Solitary pulmonary nodule; F41.9 Anxiety disorder, unspecified; G89.4 Chronic pain syndrome; I10 Essential (primary) hypertension; Y90.8 Blood alcohol level of 240 mg/100 ml or more
CPT/HCPCS: 2NBSP; 36415; 80307; 82436; 96374; 96375; G0480; J0131; J1650; J1885; J3360; J3490; J7060

== ENCOUNTER 2017-08-15 11:46 | Inpatient (IN) | payer OTHER, MEDICARE ==
[~2017-08-15] VITALS: Ht 175.3 cm; Wt 78.2 kg
[~2017-08-15 11:46] MED LIST changes: +DAILY MULTIPLE1 EACH PO; +THIAMINE HCL50 M1 PO
--- NOTE | 2017-08-15 12:20 | ED GENERAL ADULT ---
See Addendum History of Present Illness General Chief Complaint: ETOH/Drug Related Complaint Stated Complaint: ETOH,REQ PAIN MEDS, RT WRIST PAIN Source: patient, old records Exam Limitations: no limitations Vital Signs & Intake/Output Vital Signs & Intake/Output Vital Signs Date Time Temp Pulse Resp B/P B/P Pulse O2 O2 Flow FiO2 Mean Ox Delivery Rate 08/16 0017 97.2 66 18 158/106 08/16 0017 97.2 66 18 158/106 95 Room Air 18 2225 97.0 68 18 135/81 18 2217 97.0 68 18 135/81 96 Room Air Room Air 18 2216 97.0 68 20 135/81 /18 1928 98.0 86 20 133/90 18 1928 98.0 86 20 133/90 95 Room Air 18 1750 98.0 87 22 129/83 08/15 1745 98.0 87 22 129/103 95 Room Air 18 1550 97.7 86 20 166/92 18 1550 97.7 86 20 166/92 96 Room Air 18 1235 Room Air 18 1205 98.0 88 20 141/98 94 Room Air ED Intake and Output 08/16 0000 08/15 1200 Intake Total Output Total Balance Patient 160 lb Weight Weight Reported by Patient Measurement Method Allergies Coded Allergies: Sulfa (Sulfonamide Antibiotics) (Mild, HIVES 07/03/15) amitriptyline (HIVES 07/03/15) Reconcile Medications Budesonide/Formoterol Fumarate (Symbicort 80-4.5 Mcg Inhaler) 80 MCG-4.5 MCG/ ACTUATION HFA.AER.AD 2 PUF INH BID COPD (Reported) Duloxetine HCl (Cymbalta) 60 MG CAPSULE. 1 CAP PO DAILY MENTAL HEALTH ( Reported) Enoxaparin Sodium (Lovenox) 120 MG/0.8 ML SYRINGE 120 MG SC DAILY hx of DVT/PE (Reported) Gabapentin (Neurontin) 600 MG TABLET 1 TAB PO TID MENTAL HEALTH/NERVE PAIN ( Reported) Melatonin 3 MG TABLET 1 TAB PO QPM SLEEP (Reported) Mirtazapine (Remeron) 15 MG TABLET 1 TAB PO QPM SLEEP (Reported) Multivitamin (Daily Multiple Vitamin) 1 EACH TABLET 1 TAB PO DAILY VITAMIN SUPPORT (Reported) Pantoprazole Sodium (Protonix) 40 MG TABLET.DR 1 TAB PO DAILY ACID REFLUX ( Reported) Thiamine HCl 50 MG TABLET 1 TAB PO DAILY VITAMIN SUPPORT (Reported) Tiotropium [place] (Spiriva) 18 MCG CAP.W.DEV 1 CAP INH DAILY COPD (Reported) Triage Note: PT REQUESTING DETOX FROM ETOH. STATES SHE FELL ON HER WAY INTO [place] INJURING RIGHT WRIST. LAST DRANK TODAY. PT UNABLE TO SIT UP STRAIGHT IN WHEELCHAIR. Triage Nurses Notes Reviewed? yes HPI: Patient presents requesting alcohol detox. Patient does not remember signing out AGAINST MEDICAL ADVICE last time. Patient states that she drinks because of her pain. She does have a history of alcohol withdrawal seizures. Patient states that she really did stop drinking. Patient denies any hallucinations or delusions. There is no suicidal or homicidal ideations. (Aria HOYT,Leonard Montgomery) Past History Travel History Traveled to [place] past 21 day No Medical History Any Pertinent Medical History? 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) Other Medical Hx: bilateral DVT in past History of MRSA: No History of VRE: No History of CDIFF: No Surgical History Surgical History: IVC filter left foot/toe surgery 10/2014 HYSTERECTOMY LUMPECTOMY TO BOTH BREAST Psychosocial History Who do you live with Patient/Self Services at Home None What is your primary language Croatian Tobacco Use: Current Daily Use Daily Tobacco Use Amount/Type: => 5 Cigarettes daily ETOH Use: heavy use Illicit Drug Use: denies illicit drug use Family History Family History, If Any: MOTHER Relation not specified for: *No pertinent family history FH: HTN (hypertension) Hx Contributory? No (Aria HOYT,Leonard Montgomery) Review of Systems Review of Systems Constitutional: Reports: no symptoms. EENTM: Reports: no symptoms. Respiratory: Reports: no symptoms. Cardiovascular: Reports: no symptoms. GI: Reports: no symptoms. Genitourinary: Reports: no symptoms. Musculoskeletal: Reports: see HPI, back pain, joint pain. Skin: Reports: no symptoms. Neurological/Psychological: Reports: no symptoms. Hematologic/Endocrine: Reports: no symptoms. Immunologic/Allergic: Reports: no symptoms. All Other Systems: Reviewed and Negative (Aria HOYT,Leonard Montgomery) Physical Exam Physical Exam General Appearance: well developed/nourished, alert, awake, anxious, moderate distress Head: atraumatic, normal appearance Eyes: Bilateral: PERRL, EOMI. Ears, Nose, Throat: normal pharynx, normal ENT inspection, hearing grossly normal Neck: normal inspection, supple, full range of motion Respiratory: normal breath sounds, chest non-tender, no respiratory distress, lungs clear Cardiovascular: regular rate/rhythm, normal peripheral pulses Gastrointestinal: normal bowel sounds, soft, non-tender, no organomegaly Back: normal inspection Extremities: normal inspection, normal capillary refill, normal range of motion, no edema Neurologic/Psych: no motor/sensory deficits, awake, alert, oriented x 3, normal gait, normal mood/affect Skin: intact, normal color, warm/dry Core Measures ACS in differential dx? No CVA/TIA Diagnosis: No Sepsis Present: No Sepsis Focused Exam Completed? No (Aria HOYT,Leonard Montgomery) Progress Differential Diagnoses I considered the following diagnoses in my evaluation of the patient: [Alcohol dependency and acute withdrawal] Plan of Care: Orders Procedure Date/time Status Nothing by Mouth 08/16 B Active Saline Lock 08/16 114 Active Misc Message 08/16 114 Active ED Holding Orders 08/16 114 Active Admit to inpatient 08/16 114 Active Vital Signs 08/16 114 Active Code Status 08/16 114 Active CIWA 08/15 1211 Active URINE DRUG SCREEN FOR ER ONLY 08/15 1211 Complete LIPASE 08/15 1211 Complete ETHANOL 08/15 1211 Complete COMPREHENSIVE METABOLIC PANEL 08/15 1211 Complete CBC WITHOUT DIFFERENTIAL 08/15 1211 Complete Current Medications Sig/Sharon Start time Last Medication Dose Stop Time Status Admin Lorazepam 2 MG ONE ONE 08/16 114 AC (Ativan) 08/17 115 Lorazepam 2 MG ONCE ONE 08/16 114 AC (Ativan) 08/17 115 Laboratory Tests 08/15/17 1310: Anion Gap 15, Estimated GFR > 60, BUN/Creatinine Ratio 10.0, Glucose 94, Calcium 9.2, Total Bilirubin 0.3, AST 46 H, ALT 45, Alkaline Phosphatase 87, Total Protein 6.7, Albumin 4.0, Globulin 2.7, Albumin/Globulin Ratio 1.5, Lipase 121, CBC w Diff NO MAN DIFF REQ, RBC 4.86, MCV 92.2, MCH 30.8, MCHC 33.4, RDW 15.2 H , MPV 6.9 L, Gran % 54.4, Lymphocytes % 39.9, Monocytes % 3.9, Eosinophils % 1.0, Basophils % 0.8, Absolute Granulocytes 3.1, Absolute Lymphocytes 2.3, Absolute Monocytes 0.2, Absolute Eosinophils 0.1, Absolute Basophils 0, Serum Alcohol 347.0 08/15/17 1239: Urine Opiates Screen < 100, Methadone Screen 47, Barbiturate Screen < 60, Ur Phencyclidine Scrn < 6.00, Amphetamines Screen < 100, U Benzodiazepines Scrn 104 , Urine Cocaine Screen < 50, Urine Cannabis Screen < 5.00 Diagnostic Imaging: Viewed by Me: Radiology Read, CT Scan. Discussed w/RAD: Radiology Read, CT Scan. Radiology Impression: PATIENT: JOE WOODS PRESENT AGE: 61 PATIENT ACCOUNT NO: [id number] : 57 LOCATION: [facility] ORDERING PHYSICIAN: Rafael ROSALES SERVICE DATE: 08/15/17 EXAM TYPE: CAT - CT CERV SPINE WO IV CONTRAST; CT HEAD WO IV CONTRAST EXAMINATION: CT OF THE HEAD. CT OF CERVICAL SPINE CLINICAL INFORMATION: EtOH with head trauma COMPARISON: None TECHNIQUE: Multidetector volumetric helical axial images are acquired through the head and cervical spine. Sagittal and coronal reformatted images of the cervical spine are constructed at the workstation. No intravenous contrast is used. Dose length product: 1084 mGy/cm FINDINGS: Cranial CT: There is some motion artifact. There is no intra or extra-axial hemorrhage or mass effect. Ventricles are normal in size and position with no midline shift. Pineda- white matter differentiation is maintained. No focal areas of acute territorial infarction are appreciated. Sulci and cisterns are normal and symmetric in appearance. No extra-axial fluid collections are appreciated. No skull fracture is seen. The visualized portions of the paranasal sinuses and mastoid air cells are clear. Cervical spine: There is normal vertebral body height and alignment throughout with no evidence for acute fracture or subluxation. There is mild disc space narrowing and hypertrophic spurring at C5-C6 and C6-C7. Facet joints are normal in appearance. Prevertebral soft tissues are normal. No focal bone lesion is identified. IMPRESSION: No acute abnormality is seen in the cranial CT scan. No fracture or subluxation is seen in the cervical spine CT scan. There is some degenerative disc disease at C5-C6 and C6-C7. DICTATED BY: Alyx Thompson MD DATE/TIME DICTATED:08/15/171431 AIRPORT OPERATIONS MANAGER:COMBS DATE/ TIME TRANSCRIBED:08/15/171431 CONFIDENTIAL, DO NOT COPY WITHOUT APPROPRIATE AUTHORIZATION. <Electronically signed in Other Vendor System> SIGNED BY: Alyx Thompson MD 08/15/17 1444, PATIENT: JOE WOODS PRESENT AGE: 61 PATIENT ACCOUNT NO: [id number] : 59 LOCATION: [facility] ORDERING PHYSICIAN: Rafael ROSALES SERVICE DATE: 08/15/17 EXAM TYPE: RAD - XRY-WRIST COMPLETE-RIGHT EXAMINATION: XR WRIST, RIGHT CLINICAL INFORMATION: Wrist pain. Fall. COMPARISON: None TECHNIQUE: PA, lateral, and oblique views of the right wrist. FINDINGS: No fracture or dislocation. The carpal arcs appear maintained. No widening of the distal radial ulnar joint. Minimal hypertrophic changes about the wrist, first MCP joint, and first interphalangeal joint. IMPRESSION: No acute osseous abnormality demonstrated. DICTATED BY: Brody Limon MD DATE/TIME DICTATED:08/15/171345 AIRPORT OPERATIONS MANAGER:COMBS DATE/TIME TRANSCRIBED:08/15/171345 CONFIDENTIAL, DO NOT COPY WITHOUT APPROPRIATE AUTHORIZATION. <Electronically signed in Other Vendor System> SIGNED BY: Brody Limon MD 08/15/17 1352 Initial ED EKG: none Hand-Off Endorsed To: Willis Heredia DO Endorsed Time: 1899 Pending: other (RE-EVAL, SRIDHAR) (Leonard Knapp MD) Departure Departure Disposition: STILL A PATIENT Condition: Stable Clinical Impression Primary Impression: Alcohol abuse with intoxication Referrals: Unknown (PCP/Family) Departure Forms: Customer Survey General Discharge Information (Leonard Knapp MD) Departure Comments 08/15/17 11:30 PM The patient was signed out to me by Dr. Knapp. She is here for alcohol intoxication. History of alcohol withdrawal seizures within the last 3 years. CIWA score was 10. Alcohol level was greater than 300. She is being monitored for CIWA scores. She was signed out to Dr. Wilson at 11 PM. (Willis Heredia DO) [facility] Documentation of Exam: Documentation of any treatments & extenuating circumstances including Concerns Regarding Discharge (functional status, medication knowledge or non-compliance, living conditions, etc.) that warrant an admission rather than observation: pt with ciwa of 15, no history of recent etoh seizures... pt merits parenteral benzos, detox per protocol. (Katie HOYT,Remy Ball) Critical Care Note Critical Care Note Critical Care Time: non-applicable (Aria HOYT,Leonard Montgomery)
[2017-08-15 13:27] LABS: ABSOLUTE BASOPHIL COUNT 0 /CUMM (0.0-0.2); ABSOLUTE EOSINOPHIL COUNT 0.1 /CUMM (0.0-0.7); ABSOLUTE GRANULOCYTE CT 3.1 /CUMM (1.4-6.5); ABSOLUTE LYMPH COUNT 2.3 /CUMM (1.2-3.4); ABSOLUTE MONOCYTE COUNT 0.2 /CUMM (0.10-0.60); BASOPHIL % 0.8 % (0.0-2.0); GRANULOCYTE % 54.4 % (42.2-75.2); HEMATOCRIT 44.8 % (37-47); MEAN CORPUSCULAR HGB 30.8 PG (27.0-31.0); MEAN CORPUSCULAR HGB CONC 33.4 G/DL (33.0-37.0); MEAN CORPUSCULAR VOLUME 92.2 FL (81.0-99.0); MEAN PLATELET VOLUME 6.9 FL (7.4-10.4); PLATELET COUNT 299 /CUMM (130-400); RBC DISTRIBUTION WIDTH 15.2 % (11.5-14.5); RED BLOOD CELL CT 4.86 /CUMM (4.20-5.40); WHITE BLOOD CELL COUNT 5.8 /CUMM (4.8-10.8)
--- NOTE | 2017-08-15 13:52 | RADIOLOGY REPORT ---
EXAMINATION: XR WRIST, RIGHT CLINICAL INFORMATION: Wrist pain. Fall. COMPARISON: None TECHNIQUE: PA, lateral, and oblique views of the right wrist. FINDINGS: No fracture or dislocation. The carpal arcs appear maintained. No widening of the distal radial ulnar joint. Minimal hypertrophic changes about the wrist, first MCP joint, and first interphalangeal joint. IMPRESSION: No acute osseous abnormality demonstrated.
--- NOTE | 2017-08-15 14:44 | CT SCAN REPORT ---
EXAMINATION: CT OF THE HEAD. CT OF CERVICAL SPINE CLINICAL INFORMATION: EtOH with head trauma COMPARISON: None TECHNIQUE: Multidetector volumetric helical axial images are acquired through the head and cervical spine. Sagittal and coronal reformatted images of the cervical spine are constructed at the workstation. No intravenous contrast is used. Dose length product: 1084 mGy/cm FINDINGS: Cranial CT: There is some motion artifact. There is no intra or extra-axial hemorrhage or mass effect. Ventricles are normal in size and position with no midline shift. Pineda-white matter differentiation is maintained. No focal areas of acute territorial infarction are appreciated. Sulci and cisterns are normal and symmetric in appearance. No extra-axial fluid collections are appreciated. No skull fracture is seen. The visualized portions of the paranasal sinuses and mastoid air cells are clear. Cervical spine: There is normal vertebral body height and alignment throughout with no evidence for acute fracture or subluxation. There is mild disc space narrowing and hypertrophic spurring at C5-C6 and C6-C7. Facet joints are normal in appearance. Prevertebral soft tissues are normal. No focal bone lesion is identified. IMPRESSION: No acute abnormality is seen in the cranial CT scan. No fracture or subluxation is seen in the cervical spine CT scan. There is some degenerative disc disease at C5-C6 and C6-C7.
[2017-08-15 15:50] VITALS: BP 166/92
[2017-08-15 17:50] VITALS: BP 129/83
[2017-08-15 19:28] VITALS: BP 133/90
[2017-08-15 22:16] VITALS: BP 135/81
[2017-08-16] VITALS (11 sets, daily range): BP systolic 118–160; BP diastolic 87–106
--- NOTE | 2017-08-16 02:27 | History & Physical ---
Annemarie HOYT,[place] 08/16/17 0227: General Information and HPI MD Statement: I have seen and personally examined JOE WOODS and documented this H&P. The patient is a 61 year old F who presented with a patient stated chief complaint of [alcohol withdrawal]. Source of Information: patient, old records Exam Limitations: poor historian History of Present Illness: Patient is a 61-year-old female with a PMH significant for alcohol use disorder with multiple attempts at alcohol detoxification and alcohol withdrawal seizures in the past, hepatitis B, hepatitis C, hemochromatosis, depression, HTN, COPD, psoriatic arthritis, chronic opioid dependence, fibromyalgia, bilateral DVT status post IVC filter placement, heterozygous factor V Leiden deficiency, homozygous HFE H 63D mutation who presented to the [facility] ED requesting alcohol detoxification. Patient is overall a poor historian but reports that for the past 4 weeks she has been drinking approximately 1 quart of vodka per day. Prior to that she had an extended period of sobriety, stating that she was sober for approximately 3 years however she was treated in the [facility] for alcohol detox 1 year ago. For the past several days patient has not been eating or drinking other than vodka. Her last drink was the day of admission at the morning of presentation at approximately 11:00 AM. She complains of nausea, bilious nonbloody vomiting, tremors and a sensation of bugs crawling on her skin. In the ED the patient was leaning against the admission desk and slid to the ground landing on her left side and wrist and initially complained of left wrist pain however by the time she was able to be for admission the pain had resolved. She denies any chest pain, shortness of breath, headache, loss of consciousness or seizure. Allergies/Medications Allergies: Coded Allergies: Sulfa (Sulfonamide Antibiotics) (Mild, HIVES 07/03/15) amitriptyline (HIVES 07/03/15) Home Med list Duloxetine HCl (Cymbalta) 60 MG CAPSULE. 1 CAP PO DAILY MENTAL HEALTH ( Reported) Enoxaparin Sodium 150 MG/ML SYRINGE 150 MG SQ DAILY BLOOD THINER (Reported) Gabapentin 300 MG CAPSULE 1 CAP PO TID PSYCH (Reported) Mirtazapine 15 MG TABLET 1 TAB PO QPM MENTAL HEALTH (Reported) Past History Travel History Traveled to [place] past 21 day No Medical History Neurological: FIBROMYALGIA seizure in the setting of alcohol withdrawal EENT: NONE Cardiovascular: NONE Respiratory: COPD, emphysema Gastrointestinal: GERD, POLYPS IN COLON Hepatic: hepatitis B, hepatitis C Renal: 2 CYSTS IN L KIDNEY Musculoskeletal: osteoarthritis, psoariatic arthritis, OSTEOPENIA Psychiatric: alcohol dependence, anxiety, depression, dysthymic disorder Endocrine: THYROID NODULE Blood Disorders: HEMOCHROMATOSIS Cancer(s): NONE SOCIAL MEDIA DEVELOPER/Reproductive: BREAST NODULES (R BREAST 1 NODULE PRECANCEROUS) Other Medical Hx: bilateral DVT in past History of MRSA: No History of VRE: No History of CDIFF: No Surgical History Surgical History: IVC filter left foot/toe surgery 10/2014 HYSTERECTOMY LUMPECTOMY TO BOTH BREAST Past Family/Social History Family History Relations & Conditions if any MOTHER Relation not specified for: *No pertinent family history FH: HTN (hypertension) Psychosocial History Where do you live? Home Who Do You Live With? self Services at Home: None Primary Language: Irish Smoking Status: Current Everyday Smoker ETOH Use: heavy use Illicit Drug Use: denies illicit drug use Functional Ability ADLs Independent: dressing, eating, toileting, bathing. Ambulation: cane Review of Systems Review of Systems Constitutional: Denies: chills, fever, malaise. EENTM: Denies: blurred vision, double vision, visual changes. Cardiovascular: Denies: chest pain, palpitations, syncope. Respiratory: Denies: cough, short of breath, sputum production. GI: Reports: nausea, vomiting. Denies: diarrhea, bloody stool, changes in stool. Genitourinary: Denies: dysuria, frequency, hematuria. Musculoskeletal: Reports: no symptoms. Skin: Reports: no symptoms. Exam & Diagnostic Data Last 24 Hrs of Vital Signs/I&O Vital Signs Date Time Temp Pulse Resp B/P B/P Pulse O2 O2 Flow FiO2 Mean Ox Delivery Rate 08/16 0302 98.3 63 20 141/97 98 Room Air 08/16 0215 98.3 61 16 155/100 96 Room Air 08/16 0212 98.3 61 18 155/100 08/16 0017 97.2 66 18 158/106 08/16 0017 97.2 66 18 158/106 95 Room Air 08/155 97.0 68 18 135/81 08/15 2216 97.0 68 18 135/81 96 Room Air Room Air 08/15 2216 97.0 68 20 135/81 08/15 1928 98.0 86 20 133/90 08/15 1928 98.0 86 20 133/90 95 Room Air 18 1750 98.0 87 22 129/83 08/15 1745 98.0 87 22 129/103 95 Room Air 08/15 1550 97.7 86 20 166/92 08/15 1550 97.7 86 20 166/92 96 Room Air 08/15 1235 Room Air 08/15 1205 98.0 88 20 141/98 94 Room Air Intake & Output 08/16 0800 08/16 0000 08/15 1600 Intake Total Output Total Balance Patient 160 lb Weight Weight Reported by Patient Measurement Method Physical Exam General Appearance Alert, Oriented X3, Cooperative, No Acute Distress Skin Temp/Moisture Exam: Warm/Dry Sepsis Skin Exam (color): Normal for Ethnicity HEENT Atraumatic, PERRLA, EOMI, poor dentition, dry mucous membranes Cardiovascular Regular Rate, Normal S1, Normal S2 Lungs Clear to Auscultation, Normal Air Movement Abdomen Normal Bowel Sounds, Soft, No Tenderness Neurological Normal Speech, Strength at 5/5 X4 Ext, Normal Tone, Sensation Intact, Cranial Nerves 3-12 NL, tremulous Extremities No Clubbing, No Cyanosis, No Edema Sepsis Peripheral Pulse Location: Radial Sepsis Peripheral Pulse Exam: Normal Sepsis Cap Refill Exam: <2 Sec Last 24 Hrs of Labs/Wm: Laboratory Tests 08/15/17 1310: Anion Gap 15, Estimated GFR > 60, BUN/Creatinine Ratio 10.0, Glucose 94, Calcium 9.2, Total Bilirubin 0.3, AST 46 H, ALT 45, Alkaline Phosphatase 87, Total Protein 6.7, Albumin 4.0, Globulin 2.7, Albumin/Globulin Ratio 1.5, Lipase 121, CBC w Diff NO MAN DIFF REQ, RBC 4.86, MCV 92.2, MCH 30.8, MCHC 33.4, RDW 15.2 H , MPV 6.9 L, Gran % 54.4, Lymphocytes % 39.9, Monocytes % 3.9, Eosinophils % 1.0, Basophils % 0.8, Absolute Granulocytes 3.1, Absolute Lymphocytes 2.3, Absolute Monocytes 0.2, Absolute Eosinophils 0.1, Absolute Basophils 0, Serum Alcohol 347.0 08/15/17 1239: Urine Opiates Screen < 100, Methadone Screen 47, Barbiturate Screen < 60, Ur Phencyclidine Scrn < 6.00, Amphetamines Screen < 100, U Benzodiazepines Scrn 104 , Urine Cocaine Screen < 50, Urine Cannabis Screen < 5.00 Diagnostic Data Other Results Head/Cervical spine CT Cranial CT: There is some motion artifact. There is no intra or extra-axial hemorrhage or mass effect. Ventricles are normal in size and position with no midline shift. Pineda-white matter differentiation is maintained. No focal areas of acute territorial infarction are appreciated. Sulci and cisterns are normal and symmetric in appearance. No extra-axial fluid collections are appreciated. No skull fracture is seen. The visualized portions of the paranasal sinuses and mastoid air cells are clear. Cervical spine: There is normal vertebral body height and alignment throughout with no evidence for acute fracture or subluxation. There is mild disc space narrowing and hypertrophic spurring at C5-C6 and C6-C7. Facet joints are normal in appearance. Prevertebral soft tissues are normal. No focal bone lesion is identified. IMPRESSION: No acute abnormality is seen in the cranial CT scan. No fracture or subluxation is seen in the cervical spine CT scan. There is some degenerative disc disease at C5-C6 and C6-C7. Wrist X-ray No fracture or dislocation. The carpal arcs appear maintained. No widening of the distal radial ulnar joint. Minimal hypertrophic changes about the wrist, first MCP joint, and first interphalangeal joint. IMPRESSION: No acute osseous abnormality demonstrated. Assessment/Plan Assessment: Patient is a 61-year-old female with a PMH significant for alcohol use disorder with multiple attempts at alcohol detoxification and alcohol withdrawal seizures in the past, hepatitis B, hepatitis C, hemochromatosis, depression, HTN, COPD, psoriatic arthritis, chronic opioid dependence, fibromyalgia, bilateral DVT status post IVC filter placement, heterozygous factor V Leiden deficiency, homozygous HFE H 63D mutation who presented to the [facility] ED requesting alcohol detoxification. Vital signs on presentation: T 98.0, P 88, RR 20, BP 141/98, saturating 94% on room air Labs: CBC unremarkable, sodium 154, potassium 3.8, chloride 113, CO2 26, BUN 6, creatinine 0.6, glucose 94, AST 46, ALT 45, serum alcohol 347 Problem list #Alcohol use disorder, requesting alcohol detoxification with history of alcohol withdrawal seizures #Hypernatremia likely secondary to dehydration #Chronic medical problems including depression, DVT, hepatitis B, hepatitis C, HTN, COPD, psoriatic arthritis, chronic opiate dependence, fibromyalgia Plan -Admit to general medicine -Seizure, fall, aspiration precautions -IV Ativan per [facility] protocol, p.o. Ativan 2 mg every 6 hours -Thiamine, folic acid, multivitamin -IV hydration for hypernatremia -Follow-up BP in the a.m. -Psych consult for depression and alcohol use disorder -Social work consult -Patient reports self discontinuing Suboxone, will hold off on restarting any opiates for now Diet: Heart healthy DVT prophylaxis: Lovenox, Alps CODE STATUS: Full code As Ranked By This Provider Problem List: 1. ALCOHOL WITHDRAWAL 2. Hypernatremia Core Measures/Misc (11/14) Acute Coronary Syndrome ACS Diagnosis: No Congestive Heart Failure Congestive Heart Failure Diagnosis No Cerebrovascular Accident CVA/TIA Diagnosis: No VTE (View Protocol) VTE Risk Factors VTE (Previous) No Mechanical VTE Prophylaxis d/t N/A MechProphylax Ordered No VTE Pharm Prophylaxis d/t NA PharmProphylax ordered Sepsis (View protocol) Sepsis Present: No If YES complete Sepsis Event Note If YES complete Sepsis Event Note Daina HOYT,[facility] 08/16/17 0319: Core Measures/Misc (11/14) Sepsis (View protocol) If YES complete Sepsis Event Note If YES complete Sepsis Event Note Resident Review Statement Resident Statement: examined this patient, discussed with senior internet sales consultant, agreed with senior internet sales consultant Other Findings: HPI: 61/F with PMH of alcohol use, hepatitis B & hepatitis C 2/2 to IVDU, COPD, HTN, depression, psoriatic arthritis, fibromyalgia, bilateral DVT as s/p IVC filter, and factor V Leyden deficiency, who presented requesting alcohol detoxification. The patient has a multiple admission in the past for alcohol detox, one of the admissions was complicated with withdrawal seizure, denies any history of DT or ICU admission. The patient has been drinking 1 quart of vodka per day for the past month, her last drink was on the day of admission at 11 am. He currently reporting anxiety, nausea, 2 episodes of bilious-nonbloody vomiting, tremors, and bugs crawling on her skin. She denies any other current active complaints. She had a fall on the ED front office representative, initially she was complaining of left wrist pain, during history talking she denies rest pain. Vitals: T.max 98.0, HR 80s, RR 20, BP 140s/90s, saturating 94% on RA Labs: Unremarkable CBCs, hypernatremia of 154, AST 46, ALC 45, serum alcohol 347 , Hilario 3.7. Imaging: CT Head/Spine & hand xray showed no acute abnormalities. For physical exam refer to senior internet sales consultant note. Problem list: * Alcohol detox * Hypernatremia * Hepatitis C/hepatitis B * Hx of PE and DVT status post IVC the filter and on Lovenox * Fibromyalgia, chronic back pain, chronic opiate dependency * Factor V Leyden deficiency * Depression Plan: * Admitted to general medicine floor * Scheduled Ativan 2 mg by mouth every 6 hours * IV Ativan as per CIWA * Oral thiamin, folic acid, and MV * For and seizure precaution * IV D5W @ rate of 62 ml/h and repeat BEP in am * Continue mirtazapine, gabapentin and duloxetine * We will start patient on Lovenox 75 mg twice a day(please confirm does in a.m. ) * Zofran when necessary for nausea * Psych and social consult * Confirm all home meds in am -Heart healthy diet -DVT PPx with Alps and Lovenox -FC Kory HOYT, [facility] 08/16/17 0320: Core Measures/Misc (11/14) Sepsis (View protocol) If YES complete Sepsis Event Note If YES complete Sepsis Event Note Attending MD Review Statement Attending Statement Attending MD Statement: examined this patient, discuss w/resident/PA/WASTE HAND, agreed w/resident/PA/WASTE HAND, reviewed images, amended to note Attending Assessment/Plan: 61 yo F smoker, with h/o alcohol dependence with multiple failed attempts at detox (last detox June 2016 left AMA), withdrawal seizures, previous IVDA, Hep B and C, hemochromatosis, homozygous HFE H63D mutation, depression, HTN, COPD, psoriatic arthritis, chronic opiate dependence was on suboxone therapy, fibromyalgia, b/l DVT s/p IVC on Lovenox, is here requesting alcohol detox. Patient reports drinking one quart of vodka daily, last drink was prior to coming to ER this morning. Patient stopped taking her suboxone which resulted in her binging on alcohol for the past 4 weeks. She reports nausea and vomiting. Patient was in triage when she slid down landing on her right wrist and c/o right wrist pain. Endorses feeling of sensation of skin crawling but denies auditory or visual hallucinations. Denies SI or HI. Vitals stable except for elevated BP 135-158/ 81 106. Exam as above. Labs: Na 154, AST 46, lipase 121. Utox mildly positive for methadone and benzos. S. Alcohol 347. CT head/ cervical spine no acute fracture or subluxation, degenerative disc disease C5-6-7. CXR: no acute osseous abnormality. Assessment and plan: 1. Alcohol detox 2. Alcoholic gastritis 3. Hypernatremia 2/2 dehydration 4. H/o chronic PE, DVT s/p IVC filter on Lovenox 5. Fibromyalgia, chronic opiate dependence - Admit to General medicine - [facility] protocol - Aspiration, fall, seizure precautions - Ativan 2 mg PO Q6 - IV ativan per protocol - Banana bag, maintenance fluids with normal saline calculate free water deficit - Psych consult patient would like to speak with therapist - Social work consult - Continue PPI, clear liquid diet - Smoking cessation counseling, nicotine patch - Checked CT-GENETIC COUNSELOR her last prescription of Suboxone was on June 28 from [facility] - Continue tizanidine, gabapentin, duloxetine, enoxaparin, PPI and mirtazapine. - Monitor BP and if needed can add clonidine DVT ppx Lovenox. Full code.
[2017-08-16] MEDS ORDERED: GABAPENTIN300 M2 PO (03:30)
[2017-08-16] MEDS ORDERED: ENOXAPARIN150 MG/1 M SQ (03:31)
[2017-08-16] MEDS ORDERED: MIRTAZAPINE15 M2 PO (03:32)
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
--- NOTE | 2017-08-16 15:26 | PN- Att Addend ---
Attending Addendum Attending Brief Note Patient seen and examined. Lying in bed complaining of being anxious. He requested more benzodiazepine therapy. Reports that she stopped taking Suboxone few weeks ago on her own accounts to see how her body were tolerated. She reports that she has been sober for years but relapsed several weeks ago. She presented to the emergency room requesting for alcohol detox. vital Signs Date Time Temp Pulse Resp B/P B/P Pulse O2 O2 Flow FiO2 Mean Ox Delivery Rate 08/16 1400 98.8 80 20 140/100 94 Room Air 08/16 1121 150/98 08/16 1053 98.8 70 20 160/100 96 Room Air 08/16 0605 98.6 89 20 118/87 94 Room Air 08/16 0302 98.3 63 20 141/97 98 Room Air 08/16 0300 98.3 61 16 155/100 08/16 0230 96 Room Air 08/16 0215 98.3 61 16 155/100 96 Room Air 08/16 0212 98.3 61 18 155/100 08/16 0017 97.2 66 18 158/106 08/16 0017 97.2 66 18 158/106 95 Room Air 08/15 2225 97.0 68 18 135/81 18 2217 97.0 68 18 135/81 96 Room Air Room Air 08/15 2216 97.0 68 20 135/81 /18 1928 98.0 86 20 133/90 08/15 1928 98.0 86 20 133/90 95 Room Air 08/15 1750 98.0 87 22 129/83 08/15 1745 98.0 87 22 129/103 95 Room Air 08/15 1550 97.7 86 20 166/92 08/15 1550 97.7 86 20 166/92 96 Room Air General appearance: Well-developed and not in any acute distress. HEENT: Anicteric, no pallor, pupils equal and reactive. Neck: Supple with no jugular venous distention. Heart: S1-S2 regular with no audible murmur. Lungs: Adequate and symmetric air entry bilaterally with no added sounds. Abdomen: Nondistended with normal bowel sounds. Soft, nontender with no palpable masses. Extremities: No pedal edema. No cyanosis. Skin: Intact. Mild ecchymotic areas on the trunk. Laboratory Tests 08/16/17 0730: Anion Gap 11, Estimated GFR > 60, BUN/Creatinine Ratio 12.0 Problems: 1. Alcohol withdrawal syndrome 2. Hypokalemia 3. DVT/PE 4. Factor V Leyden deficiency 5. Chronic pain syndrome 6. Fibromyalgia 7. Depression Plan: -Psychiatric consultation appreciated. Continue current benzodiazepine regimen. She is currently not required an extra dose of Ativan since around 1140 this a.m. she is currently resting comfortably this afternoon. -Mobilize patient as tolerated. -Follow-up with the social work service regarding aftercare plans.
[2017-08-17] VITALS (13 sets, daily range): BP systolic 110–180; BP diastolic 80–112
--- NOTE | 2017-08-17 07:59 | PN- Housestaff ---
Edyta HOYT,Noé 08/17/17 0759: Subjective Follow-up For: Alcohol detox Subjective: Patient was seen and examined today. Reports significant nausea and vomitting clear bilious emesis. Reports anxiety and muscle aches. Patient's CIWA Max was 17 this AM. Has required 5mg IV Ativan PRN. Patient states that she has been through alcohol detox before and responds better to Valium Review of Systems Constitutional: Reports: see HPI. Objective Last 24 Hrs of Vital Signs/I&O Vital Signs Date Time Temp Pulse Resp B/P B/P Pulse O2 O2 Flow FiO2 Mean Ox Delivery Rate 08/17 1308 97.9 54 18 164/112 96 Room Air 08/17 1155 60 180/100 08/17 1102 99.3 180/100 08/17 1056 99.3 56 20 180/100 96 Room Air 08/17 0905 52 168/102 08/17 0901 98.5 60 20 160/100 98 Room Air 08/17 0610 98.4 56 20 164/88 97 Room Air 08/17 0300 98.7 63 20 160/86 97 Room Air 08/16 2253 99.5 56 17 122/90 94 Room Air 08/16 1924 98.9 58 20 160/88 97 Room Air Intake & Output 08/17 1600 08/17 0800 08/17 0000 Intake Total 240 1208 Output Total Balance 240 1208 Intake, IV 248 Intake, Oral 240 960 Physical Exam General Appearance: Alert, Cooperative, No Acute Distress Skin: No Rashes Skin Temp/Moisture Exam: Warm/Dry HEENT: Atraumatic, Mucous Membr. moist/pink Cardiovascular: Regular Rate, Normal S1, Normal S2 Lungs: Clear to Auscultation, Normal Air Movement Abdomen: Normal Bowel Sounds, Soft, No Tenderness Neurological: Normal Speech, Cranial Nerves 3-12 NL Extremities: No Clubbing, No Cyanosis, No Edema, Normal Pulses, No Tenderness/ Swelling Current Medications: Current Medications Sig/Sharon Start time Last Medication Dose Route Stop Time Status Admin Acetaminophen 650 MG .STK-MED ONE 08/16 1743 DC PO 08/16 174 Acetaminophen 650 MG Q4 HRS NEEDED PRN 08/16 1115 AC 08/16 PO 1934 Amlodipine Besylate 5 MG ONCE ONE 08/17 1130 DC 08/17 PO 08/17 1131 1155 Dextrose/Sodium 1,000 ML ONCE ONE 08/16 0330 DC 08/16 Chloride IV 08/16 1937 0417 Diazepam 10 MG Q6 08/17 1200 AC 08/17 PO 1155 Duloxetine HCl 60 MG DAILY 08/16 0900 AC 08/17 PO 0742 Enoxaparin Sodium 75 MG BID 08/16 0900 AC 08/17 SC 0802 Folic Acid 1 MG DAILY 08/16 0900 AC 08/17 PO 0742 Gabapentin 300 MG TID 08/16 0900 AC 08/17 PO 1305 Lactated Ringer's 1,000 ML Q8H 08/17 0945 AC 08/17 IV 1012 Lorazepam 1.5 MG Q6H 08/17 0900 DC PO Lorazepam 2 MG Q6H 08/16 0900 DC 08/17 PO 0741 Lorazepam 0 Q1P PRN 08/16 0245 AC 08/17 IV 1100 Mirtazapine 15 MG QPM 08/16 2100 AC 08/16 PO 2127 Multivitamins 1 TAB DAILY 08/16 0900 AC 08/17 PO 0742 Nicotine 14 MG DAILY PRN 08/16 0945 [facility] Omeprazole 40 MG DAILY AC 08/16 0700 AC 08/17 PO 0537 Ondansetron HCl 4 MG ONCE ONE 08/17 0230 DC 08/17 PO 08/17 0231 0228 Patient Medication 1 ED ONE ONE 08/17 1200 DC Teaching ED 08/17 1201 Thiamine HCl 50 MG DAILY 08/16 0900 AC 08/17 PO 0742 Last 24 Hrs of Lab/Wm Results Last 24 Hrs of Labs/Mics: Laboratory Tests 08/17/17 0714: Anion Gap 11, Estimated GFR > 60, BUN/Creatinine Ratio 8.3, Total Bilirubin 0.5, Direct Bilirubin 0.2, AST 32, ALT 45, Alkaline Phosphatase 85, Total Protein 6.3 , Albumin 3.6 Assessment/Plan Assessment: Patient is a 61-year-old female with past medical history of alcohol use disorder, multiple attempts of alcohol detoxification and history of alcohol withdrawal seizures, history of chronic opioid dependence, history of hepatitis C, hepatitis B, hemochromatosis, depression, hypertension, COPD, psoriatic arthritis, fibromyalgia, lateral DVT status post IVC filter placement, factor V Leiden deficiency, homozygous HFE patient, who stopped using Suboxone approximately 1 month prior which prompted her reportedly to start using alcohol. Patient's last alcoholic drink was on the day of admission. Patient presented with alcohol level of 347. Vital signs on presentation: T 98.0, P 88, RR 20, BP 141/98, saturating 94% on room air Labs: CBC unremarkable, sodium 154, potassium 3.8, chloride 113, CO2 26, BUN 6, creatinine 0.6, glucose 94, AST 46, ALT 45, serum alcohol 347 Patient today has required 5 mg when necessary Ativan overnight. Patient has been having nausea and vomiting overnight and this morning. Patient was started on IV fluids. Reports that she has been feeling very anxious and overall not well. States that she does better with Valium for alcohol detox than Ativan. Patient's blood pressure today went up to 180/100. Patient was switched to Valium and was given a one-time dose of amlodipine. Problems: 1. Alcohol detox- patient is continuing to require significant amount of Ativan. Reportedly she does better with Valium. Have converted her to Valium 10 mg every 6 hours. With IV Ativan when necessary every hour as necessary. 2. Nausea and vomiting- this may be secondary to alcohol detoxification however it is prudent to rule out obstruction. Have obtained an abdominal x-ray. Patient has no significant abdominal pain and LFTs remain normal. 3. Hypernatremia secondary to dehydration: Resolved 4. History of chronic opiate dependence, recently stopped Suboxone one month prior. Spoke to Dr. Michael at the [facility] who has been managing patient's Suboxone. States that once she is discharged she should follow up with him. Has an appointment in August. 5. Chronic medical problems: Anxiety, depression, DVT, hepatitis B, hepatitis C , hypertension, COPD, psoriatic arthritis, fibromyalgia Plan: Admitted to general medicine floor Valium 10 mg every 6 hours, may increase to 15 if needed IV Ativan when necessary per [facility] protocol Continue thiamine, folic acid, multivitamin supplement Abdominal x-ray to rule out obstruction Amlodipine 5 mg 1 Social work consulted for further management when planning to discharge Patient is to follow up with her doctor at [facility] for Suboxone management Seizure precautions Started on lactated Ringer's 125 mL per hour Zofran when necessary for nausea Code: Full code DVT prophylaxis with Alps and Lovenox Diet: Heart healthy Problem List: 1. Alcohol abuse with intoxication 2. Hypernatremia Pain Ratin Pain Location: Shoulder Pain Goal: Pain 7 or less Pain Plan: Tylenol Gabapentin Tomorrow's Labs & Rationales: CHRISTOFER Ferrari MD,Aries 08/17/17 1342: Attending MD Review Statement Attending Statement Attending MD Statement: examined this patient, discuss w/resident/PA/COMMODITY BUYER, agreed w/resident/PA/COMMODITY BUYER, reviewed EMR data (avail), discussed with nursing, discussed with case mgmt, amended to note Attending Assessment/Plan: Patient seen and examined. Elevated CIWA scores overnight. This morning complains of nausea and vomiting. She is having bile colored vomitus. Denies abdominal pain. Reports normal bowel movements. On examination abdomen is soft and nontender with normal bowel sounds. She reports that she is having no relief of anxiety with use of Ativan. She states that she has used Valium in the past with better effects. Recommendations: -Obtain abdominal x-ray to rule out gastrointestinal obstruction. -LFTs are within normal limits. She has a right upper quadrant tenderness. No need for biliary imaging at present. -Begin patient on Valium orally [id number] in place of Ativan. Will monitor response to therapy.
--- NOTE | 2017-08-17 15:23 | RADIOLOGY REPORT ---
EXAMINATION: XR PORTABLE ABDOMEN CLINICAL INFORMATION: Abdominal pain. Rule out obstruction. COMPARISON: None TECHNIQUE: AP view of the abdomen performed on 2 images. FINDINGS: Normal bowel gas pattern with no abnormal distention of bowel loops seen. No definite free air on supine imaging. IVC filter in place with tip at the inferior right margin of the L1 vertebral body. Mild S-shaped thoracolumbar scoliosis and moderate vertebral spondylosis in the mid and lower lumbar spine. Lung bases clear. IMPRESSION: Unremarkable examination. No evidence of bowel obstruction.
[2017-08-18] VITALS (8 sets, daily range): BP systolic 149–180; BP diastolic 94–115
--- NOTE | 2017-08-18 07:07 | PN- Housestaff ---
Edyta HOYT,Noé 08/18/17 0707: Subjective Follow-up For: Alcohol detox Anxiety Subjective: Patient was seen and examined today. Patient reports continued anxiety, anxiety and nausea. Reports vomitting has signficantly improved from previous day. Patient reportedly fell, however patient states she was sitting on the floor as she was feeling hot and floor felt cold. Patient currently has a 1:[address] Review of Systems Constitutional: Reports: see HPI. Objective Last 24 Hrs of Vital Signs/I&O Vital Signs Date Time Temp Pulse Resp B/P B/P Pulse O2 O2 Flow FiO2 Mean Ox Delivery Rate 08/19 2127 64 170/108 08/18 1908 170/110 08/18 1900 99.1 74 20 170/110 97 Room Air 08/18 1430 97.8 66 18 156/98 96 Room Air 08/18 1328 160/96 08/18 1201 98.4 57 18 180/110 95 Room Air 08/18 1021 68 20 160/102 08/18 0853 98.4 70 18 150/115 99 Room Air 08/18 0520 98.6 77 18 149/94 97 Room Air 08/17 2328 97.6 75 20 110/80 08/17 2300 97.6 75 20 110/80 97 Room Air Intake & Output 08/18 1600 08/18 0800 08/18 0000 Intake Total 320 1240 940 Output Total Balance 320 1240 940 Intake, IV 1000 500 Intake, Oral 320 240 440 Physical Exam General Appearance: Alert, Cooperative, No Acute Distress Skin Temp/Moisture Exam: Warm/Dry HEENT: Atraumatic, Mucous Membr. moist/pink Cardiovascular: Regular Rate, Normal S1, Normal S2 Lungs: Clear to Auscultation, Normal Air Movement Abdomen: Normal Bowel Sounds, Soft, No Tenderness Neurological: Normal Speech, Cranial Nerves 3-12 NL, no tremor Extremities: No Clubbing, No Cyanosis, No Edema, Normal Pulses, No Tenderness/ Swelling Current Medications: Current Medications Sig/Sharon Start time Last Medication Dose Route Stop Time Status Admin Acetaminophen 650 MG Q4 HRS NEEDED PRN 08/16 1115 AC 08/16 PO 1934 Amlodipine Besylate 5 MG DAILY 08/18 0930 AC 08/18 PO 102 Diazepam 10 MG Q6 08/17 1200 AC 08/18 PO 1745 Duloxetine HCl 60 MG DAILY 08/16 0900 AC 08/18 PO 0837 Enoxaparin Sodium 150 MG DAILY 08/18 1100 AC 08/18 SC 1149 Enoxaparin Sodium 75 MG BID 08/16 0900 DC 08/17 SC 2030 Folic Acid 1 MG DAILY 08/16 0900 AC 08/18 PO 0837 Gabapentin 600 MG TID 08/18 1400 AC 08/18 PO 2033 Gabapentin 300 MG TID 08/16 0900 DC 08/18 PO 0841 Hydralazine HCl 25 MG ONCE ONE 08/18 2044 DC 08/18 PO 08/18 204 2128 Lactated Ringer's 1,000 ML Q8H 08/17 0945 DC 08/18 IV 0255 Lorazepam 1 MG ONCE ONE 08/18 1530 DC 08/18 IV 08/18 1531 1538 Lorazepam 0 Q1P PRN 08/16 0245 AC 08/18 IV 0254 Mirtazapine 15 MG QPM 08/16 2100 AC 08/18 PO 2033 Multivitamins 1 TAB DAILY 08/16 0900 AC 08/18 PO 0837 Nicotine 14 MG DAILY PRN 08/16 0945 AC TOP Omeprazole 20 MG DAILY AC 08/19 0700 AC PO Omeprazole 40 MG DAILY AC 08/16 0700 DC 08/18 PO 0546 Ondansetron HCl 4 MG .STK-MED ONE 08/18 1014 DC IV 08/18 1015 Ondansetron HCl 4 MG ONCE ONE 08/18 0300 DC 08/18 IV 08/18 0301 0257 Potassium Chloride 40 MEQ ONCE ONE 08/18 0930 DC 08/18 PO 08/18 0931 1012 Thiamine HCl 50 MG DAILY 08/16 0900 AC 08/18 PO 0837 Tizanidine HCl 2 MG TID 08/18 1030 AC 08/18 PO 2032 Last 24 Hrs of Lab/Wm Results Last 24 Hrs of Labs/Mics: Laboratory Tests 08/18/17 0712: Anion Gap 12, Estimated GFR > 60, BUN/Creatinine Ratio 8.0 Assessment/Plan Assessment: Patient is a 61-year-old female with past medical history of alcohol use disorder, multiple attempts of alcohol detoxification and history of alcohol withdrawal seizures, history of chronic opioid dependence, history of hepatitis C, hepatitis B, hemochromatosis, depression, hypertension, COPD, psoriatic arthritis, fibromyalgia, lateral DVT status post IVC filter placement, factor V Leiden deficiency, homozygous HFE patient, who stopped using Suboxone approximately 1 month prior which prompted her reportedly to start using alcohol. Patient's last alcoholic drink was on the day of admission. Patient presented with alcohol level of 347. Vital signs on presentation: T 98.0, P 88, RR 20, BP 141/98, saturating 94% on room air Labs: CBC unremarkable, sodium 154, potassium 3.8, chloride 113, CO2 26, BUN 6, creatinine 0.6, glucose 94, AST 46, ALT 45, serum alcohol 347 Patient today has required 5 mg when necessary Ativan overnight. Patient has been having nausea and vomiting overnight and this morning. Patient was started on IV fluids. Reports that she has been feeling very anxious and overall not well. States that she does better with Valium for alcohol detox than Ativan. Patient's blood pressure today went up to 180/100. Patient was switched to Valium and was given a one-time dose of amlodipine. Problems: 1. Alcohol detox- patient is continuing to require significant amount of Ativan - it appears that it is mostly due to anxiety. Patient does not appear to be in severe withdrawal. At this time will stop CIWA and PRN Ativan patient reports it does not work for her. Will continue Valium 10mg q6h. - Patient has signfiicant anxiety being treated with a combination of medications. Spoke to psychiatry today in regards to her medications. Will resume home medications. 2. Nausea and vomiting- appears to be resolving, likely secondary to alcohol detoxification, ruled out obstruction with abdominal x-ray. Patient has no significant abdominal pain and LFTs remain normal. 3. Hypernatremia secondary to dehydration: Resolved, Hypokalemia - potassium repleted. 4. History of chronic opiate dependence, recently stopped Suboxone one month prior. Spoke to Dr. Michael at the [facility] who has been managing patient's Suboxone. States that once she is discharged she should follow up with him. Has an appointment in August. 5. Chronic medical problems: Anxiety, depression, DVT, hepatitis B, hepatitis C , hypertension, COPD, psoriatic arthritis, fibromyalgia 6. Hypertensive - currently not on any antihypertensives, started on low dose of amlodipine Plan: Admitted to general medicine floor Valium 10 mg every 6 hours Discontinued CIWA protocol Continue thiamine, folic acid, multivitamin supplement Started on amlodipine 5mg daily Resumed patient's tizanidine at a lower dose Increased gabapentin to 600mg (patient's home dose) Continue cymbalta Continue mirtazipine Social work consulted for further management when planning to discharge Patient is to follow up with her doctor at [facility] for Suboxone management Seizure precautions Started on lactated Ringer's 125 mL per hour Zofran when necessary for nausea Code: Full code DVT prophylaxis with Alps and Lovenox Diet: Heart healthy Problem List: 1. Alcohol abuse with intoxication 2. Anxiety Pain Ratin Pain Location: shoulder/back Pain Goal: Pain 4 or less Pain Plan: prn Tomorrow's Labs & Rationales: bep - hypokalemia Aries Ferrari MD 08/18/17 1115: Attending MD Review Statement Attending Statement Attending MD Statement: examined this patient, discuss w/resident/PA/IRRIGATOR, agreed w/resident/PA/IRRIGATOR, reviewed EMR data (avail), discussed with nursing, discussed with case mgmt, amended to note Attending Assessment/Plan: Patient seen and examined. Is discussed in detail with nursing staff. Patient' s CIWA score has been fluctuating very widely. She occasionally will have scores of 0 and then scores of 23. This morning she is sitting comfortably in bed. She reports that she is agitated. She states that Ativan is not helping her anxiety and that she prefers Valium. She has been receiving Valium 10 mg orally every 6 hours [id number] and Ativan as needed intravenously. She states she no longer wants the Ativan. When I stated that we would discontinue the Ativan and continue with Smith failure she requested if she could be discharged home soon with prescriptions for Valium. When I stated that we could not send her home with benzodiazepines due to her alcohol history she did not stated that she would like to stay in hospital and have her Valium weaned off slowly. Patient does not appear to be in alcohol withdrawal now given her fluctuating CIWA scores. She is calm. She is oriented. She does not have any objective signs of alcohol withdrawal at present. She certainly does have underlying anxiety disorder. She states that she was on Cymbalta prior to hospitalization. Unfortunately this was not reconciled initially when she presented. She states she is also on Tinazidine and gabapentin. Recommendations: -Discontinue CIWA scale. -Resume patient's Tinazidine, gabapentin and Cymbalta. -Continue current dose of volume. Decreased tomorrow to 5 mg every 6 hours. On Tuesday decreased to 2.5 mg every 8 hours. She may be discharged home on Tuesday. -She is to follow-up with the psychiatric service as an outpatient for management of her anxiety disorder. -Denies any further vomiting this morning. Supplement potassium orally. Discontinue IV fluids. -Blood pressure remains elevated. patient has been started on Amlodipine 5mg tran. Will monitor response.
[2017-08-19 01:30] VITALS: BP 160/100
[2017-08-19 05:30] VITALS: BP 145/90
[2017-08-19 06:57] VITALS: BP 150/95
--- NOTE | 2017-08-19 07:15 | PN- Housestaff ---
Edyta HOYT,Noé 08/19/17 0714: Subjective Follow-up For: Alcohol detox Anxiety Chest pain Subjective: Patient was seen and examined today. Patient overnight had elevated bp to the 170s/110s. Patient received PO hydralazine 25mg followed by 0.1mg of clonidine. Patients bp this morning came down to the 150s/90s. Patient today reports a throbbing headache and some blurry vision. Also reports chest pain that is reportedly in the center of her chest and feels like a pressure. Patient reports continued nausea and vomitting. No vomitting reported by nursing staff today. Patient reports poor appetite. Review of Systems Constitutional: Reports: see HPI. Objective Last 24 Hrs of Vital Signs/I&O Vital Signs Date Time Temp Pulse Resp B/P B/P Pulse O2 O2 Flow FiO2 Mean Ox Delivery Rate 08/19 0742 148/92 08/19 0657 98.3 77 20 150/95 95 Room Air 08/19 0530 145/90 08/19 0348 160/100 08/19 0130 160/100 08/19 0000 Room Air 08/18 2253 99.9 69 20 150/100 92 Room Air 08/18 2128 64 170/108 08/18 1908 170/110 08/18 1900 99.1 74 20 170/110 97 Room Air 08/18 1430 97.8 66 18 156/98 96 Room Air 08/18 1328 160/96 08/18 1201 98.4 57 18 180/110 95 Room Air 08/18 1021 68 20 160/102 08/18 0853 98.4 70 18 150/115 99 Room Air Intake & Output 08/19 1600 08/19 0800 08/19 0000 Intake Total 730 970 Output Total Balance 730 970 Intake, IV 10 10 Intake, Oral 720 960 Number 0 0 Bowel Movements Physical Exam General Appearance: Alert, Oriented X3, Cooperative, No Acute Distress Skin: No Rashes Skin Temp/Moisture Exam: Warm/Dry HEENT: Atraumatic, PERRLA, EOMI, Mucous Membr. moist/pink Cardiovascular: Regular Rate, Normal S1, Normal S2, No Murmurs Lungs: Clear to Auscultation, Normal Air Movement Abdomen: Normal Bowel Sounds, Soft, No Tenderness Neurological: Normal Speech, Cranial Nerves 3-12 NL Extremities: No Clubbing, No Cyanosis, No Edema, Normal Pulses, No Tenderness/ Swelling Current Medications: Current Medications Sig/Sharon Start time Last Medication Dose Route Stop Time Status Admin Acetaminophen 650 MG Q4 HRS NEEDED PRN 08/16 1115 AC 08/19 PO 0739 Amlodipine Besylate 5 MG DAILY 08/18 0930 AC 08/19 PO 0742 Clonidine 0.1 MG ONCE ONE 08/19 0300 DC 08/19 PO 08/19 0301 0348 Diazepam 10 MG Q6 08/17 1200 08/19 PO 0535 Duloxetine HCl 60 MG DAILY 08/16 0900 AC 08/19 PO 0739 Enoxaparin Sodium 150 MG DAILY 08/18 1100 08/19 SC 0743 Enoxaparin Sodium 75 MG BID 08/16 0900 DC 08/17 SC 2030 Folic Acid 1 MG DAILY 08/16 0900 AC 08/19 PO 0739 Gabapentin 600 MG TID 08/18 1400 AC 08/19 PO 0739 Gabapentin 300 MG TID 08/16 0900 DC 08/18 PO 0841 Hydralazine HCl 25 MG ONCE ONE 08/18 2045 DC 08/18 PO 08/18 2046 2128 Lactated Ringer's 1,000 ML Q8H 08/17 0945 ME 08/18 IV 0255 Lorazepam 1 MG ONCE ONE 08/18 1530 DC 08/18 IV 08/18 1531 1538 Lorazepam 1 MG .STK-MED ONE 08/18 1521 DC PO 08/18 1522 Lorazepam 0 Q1P PRN 08/16 0245 08/18 IV 0254 Mirtazapine 15 MG QPM 08/16 2100 AC 08/18 PO 2033 Multivitamins 1 TAB DAILY 08/16 0900 08/19 PO 0742 Nicotine 14 MG DAILY PRN 08/16 0945 TOP Omeprazole 20 MG DAILY AC 08/19 0700 08/19 PO 0539 Omeprazole 40 MG DAILY AC 08/16 0700 DC 08/18 PO 0546 Ondansetron HCl 4 MG .STK-MED ONE 08/18 1014 DC IV 08/18 1015 Potassium Chloride 40 MEQ ONCE ONE 08/18 0930 DC 08/18 PO 08/18 0931 1012 Thiamine HCl 50 MG DAILY 08/16 0900 AC 08/19 PO 0743 Tizanidine HCl 2 MG TID 08/18 1030 06/22 PO 0743 Last 24 Hrs of Lab/Wm Results Last 24 Hrs of Labs/Mics: Laboratory Tests 08/19/17 0728: Sodium Pending, Potassium Pending, Chloride Pending, Carbon Dioxide Pending, Anion Gap Pending, BUN Pending, Creatinine Pending, BUN/Creatinine Ratio Pending Orders EKG Findings: NSR, with LAD, no significant STT wave changes Assessment/Plan Assessment: Patient is a 61-year-old female with past medical history of alcohol use disorder, multiple attempts of alcohol detoxification and history of alcohol withdrawal seizures, history of chronic opioid dependence, history of hepatitis C, hepatitis B, hemochromatosis, depression, hypertension, COPD, psoriatic arthritis, fibromyalgia, lateral DVT status post IVC filter placement, factor V Leiden deficiency, homozygous HFE patient, who stopped using Suboxone approximately 1 month prior which prompted her reportedly to start using alcohol. Patient's last alcoholic drink was on the day of admission. Patient presented with alcohol level of 347. Vital signs on presentation: T 98.0, P 88, RR 20, BP 141/98, saturating 94% on room air Labs: CBC unremarkable, sodium 154, potassium 3.8, chloride 113, CO2 26, BUN 6, creatinine 0.6, glucose 94, AST 46, ALT 45, serum alcohol 347 Problems: 1. Alcohol detox- Patient has passed the window for concern of delirium tremens or severe withdrawal and is currently stable on valium 10mg q6h. Currently off CIWA protocol as patient was receiving a significant amount of Ativan for anxiety. 2. Atypical Chest pain - R/O ACS: patient this morning is complaining of nonradiating chest pressure which she reports is new. EKG showed no significant ST or Twave changes and troponin ordered this morning. 3. Hypertension- Patient has been significantly hypertensive while she is here. This can be attributed in part to her detox and to pain. Patient was started on amlodipine 5mg daily. Patient also received hydralazine x1 and clonidine x1 with significant improvement. BEP and EKG pending. 4. Anxiety- Patient continues to have significant anxiety. Patient is currently on multiple medications including valium, cymbalta, mirtazipine and tizanidine. Patient will require intensive outpatient therapy for her anxiety. 5. Nausea and vomiting- appears to be resolving, likely secondary to alcohol detoxification, ruled out obstruction with abdominal x-ray. Patient has no significant abdominal pain and LFTs remain normal. 6. Electrolyte abnormalities: Hypernatremia secondary to dehydration: Resolved, Hypokalemia - potassium repleted. 7. History of chronic opiate dependence, recently stopped Suboxone one month prior. Spoke to Dr. Michael at the [facility] who has been managing patient's Suboxone. States that once she is discharged she should follow up with him. Has an appointment in August. 8. Chronic medical problems: Anxiety, depression, DVT, hepatitis B, hepatitis C , hypertension, COPD, psoriatic arthritis, fibromyalgia Plan: Admitted to general medicine floor Valium 10 mg every 6 hours Off CIWA protocol Continue thiamine, folic acid, multivitamin supplement Increased amlodipine to 10mg daily Resumed patient's tizanidine at a lower dose Continue gabapentin to 600mg (patient's home dose) Continue cymbalta Continue mirtazipine Social work consulted for further management when planning to discharge Patient is to follow up with her doctor at [place] for Suboxone management Seizure precautions Zofran when necessary for nausea Code: Full code DVT prophylaxis with Alps and Lovenox Diet: Heart healthy Problem List: 1. Alcohol abuse with intoxication 2. Anxiety 3. Chest pain 4. Hypertension Pain Ratin Pain Location: headache Pain Goal: Pain 7 or less Pain Plan: gabapentin tylenol Tomorrow's Labs & Rationales: none Vega HOYT,Aries 08/19/17 1130: Attending MD Review Statement Attending Statement Attending MD Statement: examined this patient, discuss w/resident/PA/SAMPLE SELECTOR, agreed w/resident/PA/SAMPLE SELECTOR, reviewed EMR data (avail), discussed with nursing, discussed with case mgmt, amended to note Attending Assessment/Plan: Patient seen and examined. For the most part she is lying comfortably in bed and does not appear in distress however when questioned she reports anxiety and continues to inquire about benzodiazepine therapy. She reports poor sleep at night states she has a headache. Blood pressure has been elevated. She likely has underlying hypertension aggravated by her anxiety disorder. We appreciate evaluation by the psychiatry service today and recommendations are to wean patient off of benzodiazepine therapy and begin her on Seroquel. Recommendations: -Decrease dose of benzodiazepine as recommended by the psychiatry service. -Begin Seroquel as recommended by the psychiatry service. -Increase Norvasc to 10 mg orally daily. Low-salt diet. -Continue Tylenol as needed for headache. Monitor for improvement in sleep with initiation of additional anxiolytic therapy. -Repeat serum chemistry and CBC if there is a change in her clinical status.
--- NOTE | 2017-08-19 10:40 | PN- Psychiatry ---
Assessment/Plan Impression: The patient was admitted for alcohol detox. Review of notes reveals that the patient had 16 mg of lorazepam on August 17, 2019 milligrams of lorazepam equivalents on August 17, 7 mg on August 18 and 1 mg so far today. Observation today there are no signs of alcohol withdrawal. C was scores have been discontinued. Blood pressure seems to have fluctuated since admission with no evidence of tachycardia. Unclear whether the patient is hypertensive at baseline. Labs noncontributory. Patient is now very anxious, somatically focused. This is likely contributing to her hypertension. Of note the patient reports intermittent benzodiazepine abuse as an outpatient but she denies any regular use. She also denies using any substances other than alcohol. Urine drug screen was negative. Suggestion: 1. Suggest brief benzodiazepine taper using oral as opposed intravenous administration. Would recommend 8 mg of benzodiazepine equivalents today [ lorazepam 1 mg is equivalent to diazepam 10 mg though note the latter is hepatically metabolized]; reduce to 4 mg tomorrow, 2 mg 08/21, 1 mg 08/22 and stop. 2. I have ordered quetiapine 25 mg p.o. 3 times daily for anxiety and agitation. QTC is 427. Monitor for postural hypotension. The patient may need a higher dose but she is anxious about starting the medication. If necessary increase to 50 mg p.o. 3 times daily.3. 3. Treatment of hypertension, headache, nausea/vomiting as per medical team. Subjective Subjective: The patient is complaining of "throbbing headache" as well as nausea and vomiting. Unclear from notes for the vomiting has been witnessed by staff. Patient states she believes she is having a prolonged detox from alcohol. Review of Systems: The patient is alert and oriented 3. There is no evidence of tremor. She is not diaphoretic. Gait not assessed. No fluctuating level of consciousness. Good eye contact. Speech normal in rate, rhythm, volume and tone. Mood anxious with congruent affect. Not suicidal or homicidal. Thought process normal in tempo, stream and form. Content preoccupied with physical symptoms. No delusions or obsessions. Attention and concentration were good. No perceptual abnormality. Recent and remote memory intact. Insight fair. Judgment unimpaired. Review of Systems Gastrointestinal: Reports: nausea, vomiting. Neurological/Psychological: Reports: anxiety, headache. Objective Last 24 Hrs of Vital Signs/I&O Vital Signs Date Time Temp Pulse Resp B/P B/P Pulse O2 O2 Flow FiO2 Mean Ox Delivery Rate 08/19 0742 148/92 08/19 0657 98.3 77 20 150/95 95 Room Air 08/19 0530 145/90 08/19 0348 160/100 08/19 0130 160/100 08/19 0000 Room Air 08/18 2253 99.9 69 20 150/100 92 Room Air 08/18 2128 64 170/108 08/18 1908 170/110 08/18 1900 99.1 74 20 170/110 97 Room Air 08/18 1430 97.8 66 18 156/98 96 Room Air 08/18 1328 160/96 08/18 1201 98.4 57 18 180/110 95 Room Air Intake & Output 08/19 1600 08/19 0800 08/19 0000 Intake Total 730 970 Output Total Balance 730 970 Intake, IV 10 10 Intake, Oral 720 960 Number 0 0 Bowel Movements
[2017-08-19 13:15] VITALS: BP 160/90
[2017-08-19] MEDS ORDERED: VITAMIN B-150 M1 PO (13:27)
[2017-08-19] MEDS ORDERED: ONE DAILY MULT1 EAC2 PO (13:27)
[2017-08-19] MEDS ORDERED: QUETIAPINE FUMA25 M1 PO (13:27)
[2017-08-19] MEDS ORDERED: FOLIC ACID1 M1 PO (13:27)
--- NOTE | 2017-08-19 13:28 | Patient Discharge Instructions ---
Acute Coronary Syndrome Inclusion Criteria At DC or during hospital stay patient has or had the following: Discharge Core Measures Meds if any: Prescribed or Continued at Discharge Meds if any: NOT Prescribed or Continued at Discharge Congestive Heart Failure Inclusion Criteria At DC or during hospital stay patient has or had the following: Discharge Core Measures Meds if any: Prescribed or Continued at Discharge Meds if any: NOT Prescribed or Continued at Discharge Cerebrovascular accident Inclusion Criteria At DC or during hospital stay patient has or had the following: CVA/TIA Diagnosis No Discharge Core Measures Meds if any: Prescribed or Continued at Discharge Meds if any: NOT Prescribed or Continued at Discharge Venous thromboembolism Discharge Core Measures - Per Current guidelines, there needs to be overlap - treatment for the first 5 days of Warfarin therapy. - If discharged on Warfarin prior to 5 days of - overlap therapy, the patient will need to be - assessed for post discharge needs including - *Post discharge parental anticoagulation - *Warfarin and/or parental anticoagulation education - *Follow up date to check INR post discharge Meds if any: Prescribed or Continued at Discharge Note: Overlap Therapy is Warfarin and Anticoagulant Meds if any: NOT Prescribed or Continued at Discharge
[2017-08-19 17:30] VITALS: BP 150/93
[2017-08-19 22:10] VITALS: BP 158/108
[2017-08-20 05:09] VITALS: BP 130/90
--- NOTE | 2017-08-20 08:55 | PN- Housestaff ---
See Addendum Judith Adams 08/20/17 0854: Subjective Follow-up For: Alcohol detox Anxiety Chest pain Complaints: onsomnia , headache, wants to go Subjective: Patient seen and examined. she is lying comfortably in bed and does not appear in distress. Reports: She reports poor sleep at night states and headache. Blood pressure has been normalized and CIWA score check was discontinued. Review of Systems Constitutional: Reports: see HPI. Cardiovascular: Reports: no symptoms. Respiratory: Reports: no symptoms. Gastrointestinal: Reports: no symptoms. Genitourinary: Reports: no symptoms. Neurological/Psychological: Reports: see HPI, anxiety, headache. Denies: ataxia, cognitive dysfunction, confusion, depressed, dementia, emotional problems, numbness, paresthesia, pre- existing deficit, petit mal seizures, tingling, tremors, tonic-clonic seizures, unable to move lower ext, unable to move upper ext, weakness, other. Objective Last 24 Hrs of Vital Signs/I&O Vital Signs Date Time Temp Pulse Resp B/P B/P Pulse O2 O2 Flow FiO2 Mean Ox Delivery Rate 08/20 1348 97.9 79 20 128/88 99 Room Air 08/20 1238 80 130/90 08/20 0915 98.4 64 18 152/90 97 Room Air 08/20 0509 98.5 70 20 130/90 95 08/19 2210 98.2 71 16 158/108 96 Room Air 08/19 2131 158/108 08/19 1730 150/93 Intake & Output 08/20 1600 08/20 0800 08/20 0000 Intake Total 620 480 500 Output Total Balance 620 480 500 Intake, IV 20 Intake, Oral 600 480 500 Number 2 Bowel Movements Physical Exam General Appearance: Alert, Oriented X3, Cooperative, No Acute Distress HEENT: Atraumatic, PERRLA, EOMI, Mucous Membr. moist/pink Neck: Supple, No JVD, No thryomegaly Lymphatic: Axillary nl, Cervical nl Lungs: Clear to Auscultation, Normal Air Movement Abdomen: Soft, No Tenderness Neurological: Strength at 5/5 X4 Ext, Normal Tone Extremities: No Cyanosis, No Edema Current Medications: Current Medications Sig/Sharon Start time Last Medication Dose Route Stop Time Status Admin Acetaminophen 650 MG .STK-MED ONE 08/21 451 DC PO 06/23 0453 Acetaminophen 650 MG .STK-MED ONE 08/19 2108 DC PO 08/19 211 Acetaminophen 650 MG Q4 HRS NEEDED PRN 08/16 1115 AC 08/20 PO 0927 Amlodipine Besylate 10 MG DAILY 08/20 0900 AC 08/20 PO 0922 Clonidine 0.1 MG ONCE ONE 08/19 2114 DC 08/19 PO 08/19 211 2131 Diazepam 4 MG Q12 08/21 0900 AC PO Diazepam 4 MG Q8 08/20 1400 DC PO 08/21 0500 Diazepam 4 MG Q8 08/20 1400 AC 08/20 PO 08/21 0500 1411 Diazepam 8 MG Q6 08/19 1200 DC 08/20 PO 0544 Duloxetine HCl 60 MG DAILY 08/16 0900 AC 08/20 PO 0922 Enoxaparin Sodium 150 MG DAILY 08/18 1100 AC 08/20 SC 0934 Folic Acid 1 MG DAILY 08/16 0900 AC 08/20 PO 0922 Gabapentin 600 MG TID 08/18 1400 AC 08/20 PO 1411 Ibuprofen 600 MG .STK-MED ONE 08/20 0247 DC PO 08/20 0248 Ibuprofen 600 MG Q6P PRN 08/19 1200 AC 08/20 PO 0247 Lisinopril 10 MG DAILY 08/20 1200 AC 08/20 PO 1238 Mirtazapine 15 MG QPM 08/16 2100 AC 08/19 PO 2107 Multivitamins 1 TAB DAILY 08/16 0900 AC 08/20 PO 0922 Nicotine 14 MG DAILY PRN 08/16 0945 AC TOP Omeprazole 20 MG DAILY AC 08/19 0700 AC 08/20 PO 0545 Quetiapine Fumarate 25 MG Q8H PRN 08/19 1100 AC PO Quetiapine Fumarate 25 MG TID 08/19 1015 AC 08/20 PO 1411 Thiamine HCl 50 MG DAILY 08/16 0900 AC 08/20 PO 0922 Tizanidine HCl 2 MG TID 08/18 1030 AC 08/20 PO 1411 Last 24 Hrs of Lab/Wm Results Last 24 Hrs of Labs/Mics: Vital Signs Date Time Temp Pulse Resp B/P B/P Pulse O2 O2 Flow FiO2 Mean Ox Delivery Rate 08/20 1348 97.9 79 20 128/88 99 Room Air 08/20 1238 80 130/90 08/20 0915 98.4 64 18 152/90 97 Room Air 08/20 0509 98.5 70 20 130/90 95 08/19 2210 98.2 71 16 158/108 96 Room Air 08/19 2131 158/108 08/19 1730 150/93 06 1315 98.4 83 20 160/90 99 Room Air 08/19 0742 148/92 08/19 0657 98.3 77 20 150/95 95 Room Air 08/19 0530 145/90 06 0348 160/100 08/19 0130 160/100 08/19 0000 Room Air 08/18 2253 99.9 69 20 150/100 92 Room Air 08/18 2128 64 170/108 08/18 1908 170/110 06 1900 99.1 74 20 170/110 97 Room Air 08/18 1430 97.8 66 18 156/98 96 Room Air 08/18 1328 160/96 08/18 1201 98.4 57 18 180/110 95 Room Air 08/18 1021 68 20 160/102 08/18 0853 98.4 70 18 150/115 99 Room Air 08/18 0520 98.6 77 18 149/94 97 Room Air 08/17 2328 97.6 75 20 110/80 06/20 2300 97.6 75 20 110/80 97 Room Air 08/17 2111 98.5 61 20 170/100 98 Room Air 08/17 1900 98.2 60 20 172/104 98 Room Air 08/17 1700 99.3 61 20 164/102 97 Room Air 08/17 1453 98.3 60 18 164/104 98 Room Air 08/17 1308 97.9 54 18 164/112 96 Room Air 08/17 1155 60 180/100 06/20 1102 99.3 180/100 06 1056 99.3 56 20 180/100 96 Room Air 08/17 0905 52 168/102 06/ 0901 98.5 60 20 160/100 98 Room Air 08/17 0610 98.4 56 20 164/88 97 Room Air 08/17 0300 98.7 63 20 160/86 97 Room Air 08/16 2253 99.5 56 17 122/90 94 Room Air 08/16 1924 98.9 58 20 160/88 97 Room Air 08/16 1400 98.8 80 20 140/100 94 Room Air 08/16 1121 150/98 06/19 1053 98.8 70 20 160/100 96 Room Air 08/16 0605 98.6 89 20 118/87 94 Room Air 08/16 0302 98.3 63 20 141/97 98 Room Air 08/16 0300 98.3 61 16 155/100 08/16 0230 96 Room Air 08/16 0215 98.3 61 16 155/100 96 Room Air 08/16 0212 98.3 61 18 155/100 08/16 0017 97.2 66 18 158/106 08/16 0017 97.2 66 18 158/106 95 Room Air 08/15 2225 97.0 68 18 135/81 18 2217 97.0 68 18 135/81 96 Room Air Room Air 08/15 2216 97.0 68 20 135/81 08/15 1928 98.0 86 20 133/90 08/15 1928 98.0 86 20 133/90 95 Room Air 08/15 1750 98.0 87 22 129/83 08/15 1745 98.0 87 22 129/103 95 Room Air 08/15 1550 97.7 86 20 166/92 08/15 1550 97.7 86 20 166/92 96 Room Air 08/15 1235 Room Air 08/15 1205 98.0 88 20 141/98 94 Room Air Orders Procedure Date/time Status Patient Safety Monitor 08/20 1218 Active Patient Safety Monitor 08/19 1400 Complete TROPONIN LEVEL 08/19 0812 Complete EKG 08/19 0812 Active BASIC ELECTROLYTES PLUS BUN&CR 08/19 0600 Complete Patient Safety Monitor 08/18 1520 Complete Patient Safety Monitor 08/18 0337 Complete Patient Safety Monitor 08/18 UNK Complete RESPIRATORY STAT 08/17 UNK Complete Restraint- Medical 08/17 UNK Complete Assessment/Plan Assessment: 71-year-old woman was admitted for protracted EtOH detox. Currently patient is on diazepam taper. For the past few days patient's blood pressure is a slightly higher than recommended blood pressure per J[facility] 8. For the past few days medical team try to control the blood pressure by giving when necessary clonidine and continuing the amlodipine 10 mg. List of active issues Alcohol detox * Continue diazepam taper soon each to diazepam 8 mg by mouth twice a day from tomorrow * Seizure and fall precaution * Has one-on-one sitter Elevated blood pressure * Continue amlodipine 10 * Started patient on lisinopril 10 mg by mouth daily Hypokalemia * Probably due to poor oral intake * Give one time supplemental potassium Problem List: 1. ALCOHOL WITHDRAWAL 2. Alcohol abuse 3. Anxiety 4. Hypertension Pain Ratin Pain Location: headache Pain Goal: Pain 4 or less Pain Plan: per med list Tomorrow's Labs & Rationales: bep for hypokalemia Aries Ferrari MD 08/20/17 1158: Attending MD Review Statement Attending Statement Attending MD Statement: examined this patient, discuss w/resident/PA/ACADEMIC AFFAIRS SPECIALIST, agreed w/resident/PA/ACADEMIC AFFAIRS SPECIALIST, reviewed EMR data (avail), discussed with nursing, discussed with case mgmt, amended to note Attending Assessment/Plan: Patient seen and examined. No issues overnight reported by nursing staff. She complains of headaches on and off. She is requesting to go home tomorrow. She does appear mildly agitated on occasion. She is ambulating freely around the unit. She had a fall during the week for no further falls since then. No new complaints this morning. We will continue to taper her benzodiazepine therapy and anticipate discharging her tomorrow. Blood pressure remains elevated. She continues to require intermittent doses of clonidine. Continue her amlodipine 10 mg daily. In addition begin patient on lisinopril 10 mg orally daily
[2017-08-20 09:15] VITALS: BP 152/90
[2017-08-20 13:48] VITALS: BP 128/88
[2017-08-20 21:36] VITALS: BP 104/80
[2017-08-21 04:29] VITALS: BP 126/88
[2017-08-21 06:59] VITALS: BP 126/77
[2017-08-21 08:12] VITALS: BP 126/77
--- NOTE | 2017-08-21 09:33 | PN- Housestaff ---
Calista HOYT,Luis 08/21/1733: Subjective Follow-up For: alcohol detox anxiety htn Subjective: no complaints this morning, withdrawal symptoms improved waiting to be discharged Review of Systems Constitutional: Reports: see HPI. Objective Last 24 Hrs of Vital Signs/I&O Vital Signs Date Time Temp Pulse Resp B/P B/P Pulse O2 O2 Flow FiO2 Mean Ox Delivery Rate 08/21 0812 75 126/77 08/21 0812 75 126/77 08/21 0659 126/77 08/21 0429 98.4 75 20 126/88 96 08/20 2136 98.3 79 18 104/80 94 08/20 1348 97.9 79 20 128/88 99 Room Air Intake & Output 08/21 1600 08/21 0800 08/21 0000 Intake Total 480 610 Output Total Balance 480 610 Intake, IV 10 Intake, Oral 480 600 Number 3 Bowel Movements Physical Exam General Appearance: Alert, Oriented X3, Cooperative, No Acute Distress Cardiovascular: Regular Rate, Normal S1, Normal S2, No Murmurs Lungs: Clear to Auscultation, Normal Air Movement Abdomen: Normal Bowel Sounds, Soft, No Tenderness, No Masses Extremities: No Clubbing, No Cyanosis, No Edema, Normal Pulses Current Medications: Current Medications Sig/Sharon Start time Last Medication Dose Route Stop Time Status Admin Acetaminophen 650 MG .STK-MED ONE 08/21 0014 DC PO 08/21 0015 Acetaminophen 650 MG Q4 HRS NEEDED PRN 08/16 1115 DCD 08/21 PO 0539 Amlodipine Besylate 10 MG DAILY 08/20 09 DCD 08/21 PO 0812 Diazepam 4 MG Q12 08/21 0900 DCD 08/21 PO 0820 Diazepam 4 MG Q8 08/20 1400 DC PO 08/21 0500 Diazepam 4 MG Q8 08/20 1400 DC 08/20 PO 08/21 0500 2123 Duloxetine HCl 60 MG DAILY 08/16 09 DCD 08/21 PO 0812 Enoxaparin Sodium 150 MG DAILY 08/18 1100 DCD 08/21 SC 0820 Folic Acid 1 MG DAILY 08/16 0900 DCD 08/21 PO 0812 Gabapentin 600 MG TID 08/18 1400 DCD 08/21 PO 0812 Ibuprofen 600 MG Q6P PRN 08/19 1200 DCD 08/20 PO 0247 Lisinopril 10 MG DAILY 08/20 1200 DCD 08/21 PO 0812 Mirtazapine 15 MG QPM 08/16 2100 DCD 08/20 PO 2023 Multivitamins 1 TAB DAILY 08/16 0900 DCD 08/21 PO 0811 Nicotine 14 MG DAILY PRN 08/16 0945 DCD TOP Omeprazole 20 MG DAILY AC 08/19 0700 DCD 08/21 PO 0535 Quetiapine Fumarate 25 MG Q8H PRN 08/19 1100 DCD 08/21 PO 0141 Quetiapine Fumarate 25 MG TID 08/19 1015 DCD 08/21 PO 0812 Thiamine HCl 50 MG DAILY 08/16 0900 DCD 08/21 PO 0811 Tizanidine HCl 2 MG TID 08/18 1030 DCD 08/21 PO 0811 Trimethobenzamide HCl 200 MG ONCE ONE 08/21 0130 DC 08/21 IM 08/21 0131 0131 Last 24 Hrs of Lab/Wm Results Last 24 Hrs of Labs/Mics: Laboratory Tests 08/21/17 1020: Anion Gap 13, Estimated GFR > 60, BUN/Creatinine Ratio 16.0 Assessment/Plan Assessment: 71 year old hypertensive woman was admitted for protracted EtOH detox and tapered on valium Alcohol detox Completed taper, stable for discharge from withdrawal standpoint Started on seroquel by psychiatry, continued on discharged tid prn Outpatient psychiatry follow up Elevated blood pressure Norvasc and lisinopril prescribed on discharge Hypokalemia Supplement orally Stable for discharge Problem List: 1. ALCOHOL WITHDRAWAL 2. Anxiety Pain Ratin Pain Location: n/a Pain Goal: Pain 4 or less Pain Plan: prn Tomorrow's Labs & Rationales: none, discharge Vega HOYT,Aries 08/21/17 1053: Attending MD Review Statement Attending Statement Attending MD Statement: examined this patient, discuss w/resident/PA/DIRECTOR OF SUSTAINABILITY, agreed w/resident/PA/DIRECTOR OF SUSTAINABILITY, reviewed EMR data (avail), discussed with nursing, discussed with case mgmt, amended to note Attending Assessment/Plan: Patient seen and examined. Resting comfortably not in any acute distress. No issues overnight. She is eager to be discharged home today. She is on diazepam 4 mg twice daily. This is equivalent of 0.5 mg of Ativan twice daily. She is medically stable to be discharged today. She will continue her Cymbalta and gabapentin. She has been started on Seroquel by the psychiatry service here. She states she will be following up with psychiatry service at [facility]. Blood pressure is better controlled on amlodipine and lisinopril. She will be discharged with prescriptions for this regimen. She has been advised to be compliant with this regimen.
[2017-08-21] MEDS ORDERED: NORVASC10 M1 PO (10:54)
[2017-08-21] MEDS ORDERED: LISINOPRIL10 M1 PO (10:54)
[2017-08-21] MEDS ORDERED: QUETIAPINE FUMA25 M1 PO (10:55)
== END 2017-08-21 11:55 | DRG 897 ==
LOC: ERH 11:46 → ERHI 08-16 01:15 → 2NB 08-16 01:15 → ENRESERV 08-16 01:46 → 2NB 08-16 02:25
PROVIDERS: Physician Assistant
DX: F10.239 Alcohol dependence with withdrawal, unspecified (principal); F33.2 Major depressive disorder, recurrent severe without psychotic features; E87.0 Hyperosmolality and hypernatremia; D68.2 Hereditary deficiency of other clotting factors; F11.20 Opioid dependence, uncomplicated; B18.1 Chronic viral hepatitis B without delta-agent; Y90.8 Blood alcohol level of 240 mg/100 ml or more; M79.7 Fibromyalgia; F19.11 Other psychoactive substance abuse, in remission; F60.3 Borderline personality disorder; E86.0 Dehydration; B18.2 Chronic viral hepatitis C; I10 Essential (primary) hypertension; J44.9 Chronic obstructive pulmonary disease, unspecified; E83.119 Hemochromatosis, unspecified; L40.50 Arthropathic psoriasis, unspecified; Z95.9 Presence of cardiac and vascular implant and graft, unspecified; Z86.718 Personal history of other venous thrombosis and embolism; Z88.2 Allergy status to sulfonamides; Z88.8 Allergy status to other drugs, medicaments and biological substances; F41.9 Anxiety disorder, unspecified; K21.9 Gastro-esophageal reflux disease without esophagitis; Z90.710 Acquired absence of both cervix and uterus; K29.20 Alcoholic gastritis without bleeding
CPT/HCPCS: 2NBP; 36415; 36592; 73110-RT; 74018; 80307; 82436; 93005; 93010; 94799; G0480; J1650; J1885; J2405; J3101; J3250; J3490; J7042; J7120